=== PATIENT | male | born 1980 | race Caucasian/White ===

== ENCOUNTER 2022-03-28 15:17 | Observation (INO) | payer MEDICAID, SELFPAY ==
--- NOTE | 2022-03-28 | ECG_ITS ---
Test Reason : HEADACHE Blood Pressure : / mmHG Vent. Rate : 072 BPM Atrial Rate : 072 BPM P-R Int : 154 ms QRS Dur : 098 ms QT Int : 396 ms P-R-T Axes : 012 -37 177 degrees QTc Int : 433 ms Normal sinus rhythm Left axis deviation T-wave inversion in Lateral leads Incomplete right bundle branch block Left ventricular hypertrophy with repolarization abnormality ( R in aVL , [place] product ) Abnormal ECG When compared with ECG of 28-MAR-2022 22:21, No significant change was found Referred By: Marin Schwartz Electronically Signed By:EZ MONTEZ MD
--- NOTE | 2022-03-28 | ECG_ITS ---
Test Reason : CHEST TIGHTNESS Blood Pressure : / mmHG Vent. Rate : 081 BPM Atrial Rate : 081 BPM P-R Int : 150 ms QRS Dur : 104 ms QT Int : 378 ms P-R-T Axes : 038 -45 163 degrees QTc Int : 439 ms Normal sinus rhythm Possible Left atrial enlargement Incomplete right bundle branch block Left anterior fascicular block Left ventricular hypertrophy with repolarization abnormality ( R in aVL , [place] product ) T-wave inversion in Lateral leads Abnormal ECG When compared with ECG of 17-MAR-2010 21:39, Left anterior fascicular block is now Present Incomplete right bundle branch block is now Present T wave inversion now evident in Lateral leads Referred By: Generic ED Physician Electronically Signed By:EZ MONTEZ MD
--- NOTE | ~2022-03-28 | XR_ITS ---
EXAMINATION: XR CHEST CLINICAL INFORMATION: Chest pain and shortness of breath. COMPARISON: Chest radiograph dated from 03/27/2011. TECHNIQUE: Frontal view of the chest was obtained. FINDINGS: Normal appearance of the cardiomediastinal silhouette. Low lung volumes with diffuse bronchovascular crowding. Questionable focal airspace opacities in the right lower lobe. No pleural effusions or pneumothorax. No acute osseous abnormalities. The imaged upper abdomen is within normal limits. XR/XR chest 1V IMPRESSION: Questionable focal airspace opacities in the right lower lobe which could be related with subsegmental atelectasis, aspiration or pneumonia. Correlate clinically and follow-up to ensure resolution.
--- NOTE | ~2022-03-28 | CT_ITS ---
EXAMINATION: CT HEAD WITHOUT CONTRAST CLINICAL INFORMATION: Headache, hypertension COMPARISON: None TECHNIQUE: Contiguous axial imaging was performed from the skull base to vertex without intravenous administration of contrast. This CT examination was performed using dose optimization techniques as appropriate, variously including the following: *Automated exposure control *Adjustment of mA and/or kV according to patient size (this includes techniques or standardized protocols for targeted exams where dose is matched to indication/reason for exam; i.e. extremities or head) *Use of iterative reconstruction technique DLP: 833 mGy-cm FINDINGS: CT examination shows the ventricles and sulci are normal in size and configuration. No acute hemorrhage, mass effect or shift is evident. In the posterior fossa, the brainstem, cerebellum and fourth ventricle image normally. The orbits, calvarium, paranasal sinuses and mastoid air cells are unremarkable. CT/CT head/brain wo IV con IMPRESSION: Unremarkable noncontrast brain CT.
[2022-03-28 17:08] VITALS: BP 175/126; PULSE 88; RESP 20; TEMP 36.2; O2SAT 99; BMI 39.9
[2022-03-28 17:41] LABS: MANUAL DIFF FLAG NO
[2022-03-28 17:42] LABS: Basophils Percent Auto 0.4 % (0-2); Eosinophils Absolute Auto 0.1 X10*3/uL (0.0-0.4); Eosinophils Percent Auto 1.6 % (0-4); Hematocrit 37.5 % (42.0-52.0); Imm Gran Abs Auto 0.04 X10*3/uL (0.00-0.03); Imm Gran Pct Auto 0.5 % (0.0-0.4); Lymphocytes Absolute Auto 2.2 X10*3/uL (1.2-4.9); Lymphocytes Percent Auto 28.7 % (20-40); Mean Corpuscular HGB Conc 34.7 g/dl (31.0-36.0); Mean Corpuscular Hemoglobin 29.7 pg (27.0-33.0); Mean Corpuscular Volume 85.8 fL (80.0-98.0); Mean Platelet Volume 11.5 fL (9.4-12.4); Monocytes Absolute Auto 0.5 X10*3/uL (0.1-1.2); Monocytes Percent Auto 6.4 % (2-11); Neutrophils Absolute Auto 4.8 x10*3/uL (2.0-8.3); Neutrophils Percent Auto 62.4 % (45-73); Platelet Count 193 X10*3/uL (160-400); Red Blood Count 4.37 X10*6/uL (4.60-5.80); Red Cell Distribution Width 13.2 % (11.0-16.0); White Blood Count 7.7 X10*3/uL (4.8-10.8)
[2022-03-28 18:01] LABS: Anion Gap 14 (12-20); Blood Urea Nitrogen 11 mg/dL (9-16); Calcium 9.7 mg/dL (8.4-10.2); Carbon Dioxide 28 mmol/L (22-29); Chloride 104 mmol/L (96-108); Creatinine Clr Calc Pharmacy 114.1; Estimated Glomerular Filt Rate > 60; Glucose Random 116 mg/dL (60-115); Potassium 3.5 mmol/L (3.3-5.1); Sodium 142 mmol/L (135-145)
[2022-03-28 18:07] LABS: Troponin-I High Sensitivity 20.8 ng/L (<3.5-35.0)
--- NOTE | 2022-03-28 18:09 | ED_ITS ---
HPI - General Adult General Chief complaint: Headache Stated complaint: High Blood Pressure Time Seen by Provider: 03/28/22 17:56 Source: patient Mode of arrival: ambulatory Limitations: no limitations History of Present Illness HPI narrative: 41-year-old male presents to the emergency department complaining of headache, shortness of breath, high blood pressure since yesterday. Patient reports yesterday he began to have a migraine became diaphoretic and lightheaded. Today at work again he experienced those symptoms. His co-worker checked his blood pressure and reported a pressure of 179/119. Currently he states he is experiencing chest pain that he describes as a tight feeling. He also is experiencing dyspnea on exertion. Patient notes he does have a history of migraines however this migraine was not his typical. Patient reports he has not seen a PCP in the last 2-3 years. When he did he was told that he had high blood pressure and was educated on lifestyle modifications. Patient denies taking medications for his blood pressure. Patient admits to family history of heart disease. Patient states he smokes a pack of cigarettes every 2-3 days on and off for the last 10 years. Denies history of DVT/PE. Denies blood thinners. Denies fevers, chills, changes in vision, nausea, vomiting, diarrhea, constipation, weakness. Denies cocain and drug use Related Data Allergies Allergy/AdvReac Type Severity Reaction Status Date / Time No Known Allergies Allergy Unverified 02/19/20 16:47 Review of Systems Review of Systems: Constitutional : No Weight loss, No Fever, No Chills, No Fatigue, No Malaise ENT/Mouth : No sore throat, No Rhinorrhea Eyes: No Eye Pain, No Swelling, No Redness Cardiovascular : +Chest Pain, No SOB,+ Dyspnea on Exertion, No Orthopnea, No Edema, No Palpitations Respiratory : No Cough, No Sputum, No Wheezing Gastrointestinal : No Nausea, No Vomiting, No Diarrhea, No Constipation, No abdominal Pain, No Hematochezia, No Melena Genitourinary : No Dysuria, No Urinary Frequency, No Hematuria, Musculoskeletal : No joint pain, No Myalgias, No Joint Swelling Skin : No Skin Lesions, No rash Neuro : No Weakness, No Numbness, No Dizziness, No Headache Psych : No Anxiety/Panic, No Depression All other systems reviewed and are negative [facility] Past Medical History Attestation statement: The following information was validated with the patient. Source: old records reviewed Social History Social History Advance Directives: No Advance Directives Information Provided: No Physical Exam ED Vital Signs: Vital Signs - 24 hr 03/28/22 17:08 03/28/22 21:15 03/28/22 21:53 Temperature 97.2 F Pulse Rate 88 77 82 Respiratory Rate 20 15 Blood Pressure 175/126 H 171/115 H 190/112 H Pulse Oximetry 99 97 Oxygen Delivery Method Room Air Room Air 03/28/22 23:48 Temperature Pulse Rate 75 Respiratory Rate 15 Blood Pressure 156/112 H Pulse Oximetry 98 Oxygen Delivery Method Room Air BMI result Body Mass Index 39.9 hypertensive noted. Appearance: Alert.? Oriented X3.? No acute distress.? Head: Normocephalic, atraumatic, no step-offs or deformities Eyes: Pupils equal, round and reactive to light.? ENT: Pharynx normal.? Neck: Normal inspection.? Neck supple.? CVS: Normal heart rate and rhythm.? Pulses normal.? Respiratory: No respiratory distress.? Breath sounds normal.? Abdomen: Soft and nontender.? Skin: Skin warm and dry.? Normal skin color.? Normal skin turgor.? Extremities: No lower extremity edema.? No calf ttp. 5/5 strength to bilateral upper and lower extremities Back: No midline tenderness, no C-spine tenderness, full range of motion, no CVA tenderness bilaterally Neuro: Oriented X 3.? No motor deficit.? No sensory deficit. CN 2-12 intact Course Reevaluation(s) Reevaluation #1: CBC appears to be around patient's baseline, chemistry without acute electrolyte abnormalities requiring intervention. Troponin noted to be 20.8, EKG showing no rmal sinus rhythm, incomplete right bundle-branch block and left anterior fascicular block. Trop likley elevated from demand ischemia. Repeat troponin ordered. Patient without chest pain at this time. Head CT unremarkable. Chest x-ray with questionable focal airspace opacities in the right lower lobe however patient does not have any upper respiratory symptoms. And a likely infectious process likely atelectasis. Time: 18:00 Reevaluation #2: Patient's blood pressure still elevated despite 10 mg of amlodipine. IV med ications are needed this time. Upon entry into patient's room he is noted to have T-wave inversions in lead 2, will repeat EKG at this time. Remains asymptomatic no chest pain and shortness of breath however blood pressure significantly elevated Time: 22:23 Reevaluation #3: Discussed this case with my attending Dr. Joshua who looked at the repeat EKG. Repeat EKG showing some ischemic changes, patient's pressure still high recommending IV labetalol. Likely hypertensive emergency. Time: 23:58 Additional Reevaluation(s): 2359 Patients pressure still elevated will give IV labetalol again. Plan for hospital admission. Medical Decision Making [facility] Narrative Medical decision making narrative: 1831 41-year-old male presents the emergency department with hypertension, headaches, dyspnea on exertion. Benign physical exam. Will rule out acs. Plan is to administer amlodipine for blood pressure. Will obtain chest x-ray to rule out PE. Medical Records Medical records reviewed: Yes I reviewed the patient's medical records. Lab Data Lab results reviewed: Yes I reviewed the patient's lab results. Result diagrams: 03/28/22 17:36 03/28/22 17:36 Labs: Lab Results 03/28/22 03/28/22 03/28/22 Range/Units 17:36 17:36 17:36 WBC 7.7 (4.8-10.8) X10*3/uL RBC 4.37 L (4.60-5.80) X10*6/uL Hgb 13.0 L (14.0-18.0) g/dl Hct 37.5 L (42.0-52.0) % MCV 85.8 (80.0-98.0) fL MCH 29.7 (27.0-33.0) pg MCHC 34.7 (31.0-36.0) g/dl RDW 13.2 (11.0-16.0) % Plt Count 193 (160-400) X10*3/uL MPV 11.5 (9.4-12.4) fL Immature Gran % (Auto) 0.5 H (0.0-0.4) % Neut % (Auto) 62.4 (45-73) % Lymph % (Auto) 28.7 (20-40) % [place] % (Auto) 6.4 (2-11) % Eos % (Auto) 1.6 (0-4) % Baso % (Auto) 0.4 (0-2) % Lymph # (Auto) 2.2 (1.2-4.9) X10*3/uL [place] # (Auto) 0.5 (0.1-1.2) X10*3/uL Eos # (Auto) 0.1 (0.0-0.4) X10*3/uL Baso # (Auto) 0.0 (0.0-0.2) X10*3/uL Abs Immat Gran (auto) 0.04 H (0.00-0.03) X10*3/uL Absolute Neuts (auto) 4.8 (2.0-8.3) x10*3/uL Absolute Nucleated RBC 0.000 (0.0-0.012) X10*3/uL Nucleated RBC % (auto) 0.0 (0.0-0.2) /100WBC D-Dimer High Sensitivty NG/ML Sodium 142 (135-145) mmol/L Potassium 3.5 (3.3-5.1) mmol/L Chloride 104 (96-108) mmol/L Carbon Dioxide 28 (22-29) mmol/L Anion Gap 14 (12-20) BUN 11 (9-16) mg/dL Creatinine 1.09 (0.5-1.4) mg/dL Estim Creat Clear Calc 114.1 Estimated GFR > 60 Random Glucose 116 H (60-115) mg/dL Calcium 9.7 (8.4-10.2) mg/dL Troponin I High Sens 20.8 (<3.5-35.0) ng/L 03/28/22 03/28/22 03/28/22 Range/Units 19:16 19:16 20:51 WBC (4.8-10.8) X10*3/uL RBC (4.60-5.80) X10*6/uL Hgb (14.0-18.0) g/dl Hct (42.0-52.0) % MCV (80.0-98.0) fL MCH (27.0-33.0) pg MCHC (31.0-36.0) g/dl RDW (11.0-16.0) % Plt Count (160-400) X10*3/uL MPV (9.4-12.4) fL Immature Gran % (Auto) (0.0-0.4) % Neut % (Auto) (45-73) % Lymph % (Auto) (20-40) % [place] % (Auto) (2-11) % Eos % (Auto) (0-4) % Baso % (Auto) (0-2) % Lymph # (Auto) (1.2-4.9) X10*3/uL [place] # (Auto) (0.1-1.2) X10*3/uL Eos # (Auto) (0.0-0.4) X10*3/uL Baso # (Auto) (0.0-0.2) X10*3/uL Abs Immat Gran (auto) (0.00-0.03) X10*3/uL Absolute Neuts (auto) (2.0-8.3) x10*3/uL Absolute Nucleated RBC (0.0-0.012) X10*3/uL Nucleated RBC % (auto) (0.0-0.2) /100WBC D-Dimer High Sensitivty < 150 NG/ML Sodium (135-145) mmol/L Potassium (3.3-5.1) mmol/L Chloride (96-108) mmol/L Carbon Dioxide (22-29) mmol/L Anion Gap (12-20) BUN (9-16) mg/dL Creatinine (0.5-1.4) mg/dL Estim Creat Clear Calc Estimated GFR Random Glucose (60-115) mg/dL Calcium (8.4-10.2) mg/dL Troponin I High Sens 25.8 28.1 (<3.5-35.0) ng/L Critical Care Time Critical Care Time Critical Care Time: No Discharge Plan Discharge Clinical Impression: Headache, Hypertensive emergency Patient Disposition: Still a Patient
[2022-03-28] MEDS: amLODIPine Besylate 5 MG TABLET PO ×2 (19:19→21:51)
[2022-03-28 19:49] LABS: D Dimer High Sensitivity < 150 NG/ML
[2022-03-28 19:55] LABS: Troponin-I High Sensitivity 25.8 ng/L (<3.5-35.0)
[2022-03-28 21:15] VITALS: BP 171/115; PULSE 77; RESP 15; O2SAT 97
[2022-03-28 21:23] LABS: Troponin-I High Sensitivity 28.1 ng/L (<3.5-35.0)
[2022-03-28 21:53] VITALS: BP 190/112; PULSE 82
--- NOTE | 2022-03-28 22:21 | ECG_ITS ---
Test Reason : REPEAT Blood Pressure : / mmHG Vent. Rate : 078 BPM Atrial Rate : 078 BPM P-R Int : 154 ms QRS Dur : 096 ms QT Int : 392 ms P-R-T Axes : 026 -40 167 degrees QTc Int : 446 ms Normal sinus rhythm Left axis deviation Incomplete right bundle branch block Minimal voltage criteria for LVH, may be normal variant ( [place] product ) T wave abnormality, consider inferolateral ischemia Abnormal ECG When compared with ECG of 28-MAR-2022 17:14, T wave inversion now evident in Anterior leads Referred By: Marin Schwartz Electronically Signed By:EZ MONTEZ MD
[2022-03-28] MEDS: Labetalol HCL 100 MG/20 ML VIAL IVPUSH (22:34)
[2022-03-28 23:48] VITALS: BP 156/112; PULSE 75; RESP 15; O2SAT 98
[2022-03-29] VITALS (11 sets, daily range): BP systolic 122–185; BP diastolic 82–122; PULSE 64–94; RESP 12–16; TEMP 36.3–36.9; O2SAT 96–99
[2022-03-29] MEDS: Labetalol HCL 100 MG/20 ML VIAL IVPUSH (00:23)
[2022-03-29 00:50] LABS: Troponin-I High Sensitivity 20.3 ng/L (<3.5-35.0)
--- NOTE | 2022-03-29 01:22 | P.HPHOSP_ITS ---
History of Present Illness Date of Service: 03/29/22 Chief Complaint: Headache and elevated blood pressure This is a 41-year-old male who was not on any prescription medications presents to the emergency department for evaluation of high blood pressure and headache. Patient states he had headache 1 day prior to presentation. He went to work but was not feeling well due to headache, sweating and intermittent chest discomfort. Chest discomfort did not increase with ambulation and did not relieve with rest. Unable to specify the duration of chest discomfort. Patient states he had similar symptoms today on the day of presentation at work. His co-worker checked his blood pressure and his systolic was in the high 170s and hence he decided to present to the ER for further evaluation. He used to take blood pressure medication years ago but stopped as he wanted to lower his blood pressure using lifestyle measures. Does not remember the name of the antihypertensive he took previously. He last saw his PCP 3 years ago. Also has obstructive sleep apnea but does not use CPAP at home. Patient smokes ci garettes, about a pack every 2-3 days for the last 10 years. Patient denies blurring vision, tingling numbness of extremities, abdominal discomfort, vomiting, changes in urinary or bowel habits. Review of Systems Review of Systems: All 13 review of systems are negative except as noted in HPI PMFSH Social History Advance Directives: No Advance Directives Information Provided: No Meds Allergies Allergy/AdvReac Type Severity Reaction Status Date / Time No Known Allergies Allergy Unverified 02/19/20 16:47 Active Medications: Current Medications Acetaminophen (Acetaminophen 325 Mg Tablet) 650 mg PO Q6H PRN PRN Reason: Pain, Mild (Pain Scale 1-3) Melatonin (Melatonin 3 Mg Tablet) 6 mg PO BEDTIME PRN PRN Reason: Insomnia Ondansetron HCl (Ondansetron Hcl 4 Mg/2 Ml Vial) 4 mg IVPUSH Q8H PRN PRN Reason: Nausea and Vomiting Pharmacy Consult (Consult Rx Perform Med Rec) 1 each MISCELLANE ONCE PRN PRN Reason: Consult order Sodium Chloride (0.9 % Sodium Chloride Flush 3 Ml Syringe) 3 ml IVFLUSH QSHIFT JAUN Physical Exam Vital Signs and Narrative: Vital Signs: Last Vital Signs Temp 97.3 F 03/29/22 00:35 Pulse 77 03/29/22 00:35 Resp 16 03/29/22 00:35 BP 147/85 H 03/29/22 00:35 Pulse Ox 97 03/29/22 00:35 O2 Del Method 03/29/22 00:35 BMI result Body Mass Index 39.9 Middle-aged male lying in bed in no distress Neck supple, no JVD Regular rate and rhythm, S1-S2 heard Regular breath sounds bilaterally, no wheezing or crackles appreciated Abdomen soft nontender, no guarding, no rigidity Patient is awake, alert and oriented to self, place, time and person ; no focal motor deficit Psych: Normal mood No pedal edema Results Labs CBC and Chem 7: 03/28/22 17:36 03/28/22 17:36 Labs: Laboratory Results - last 24 hr 03/28/22 03/28/22 03/28/22 17:36 17:36 17:36 MCV 85.8 MCH 29.7 MCHC 34.7 RDW 13.2 Plt Count 193 MPV 11.5 Immature Gran % (Auto) 0.5 H Neut % (Auto) 62.4 Lymph % (Auto) 28.7 [place] % (Auto) 6.4 Eos % (Auto) 1.6 Baso % (Auto) 0.4 Lymph # (Auto) 2.2 [place] # (Auto) 0.5 Eos # (Auto) 0.1 Baso # (Auto) 0.0 Abs Immat Gran (auto) 0.04 H Absolute Neuts (auto) 4.8 Absolute Nucleated RBC 0.000 Nucleated RBC % (auto) 0.0 D-Dimer High Sensitivty Anion Gap 14 Estim Creat Clear Calc 114.1 Estimated GFR > 60 Random Glucose 116 H Calcium 9.7 Troponin I High Sens 20.8 03/28/22 03/28/22 03/28/22 19:16 19:16 20:51 MCV MCH MCHC RDW Plt Count MPV Immature Gran % (Auto) Neut % (Auto) Lymph % (Auto) [place] % (Auto) Eos % (Auto) Baso % (Auto) Lymph # (Auto) [place] # (Auto) Eos # (Auto) Baso # (Auto) Abs Immat Gran (auto) Absolute Neuts (auto) Absolute Nucleated RBC Nucleated RBC % (auto) D-Dimer High Sensitivty < 150 Anion Gap Estim Creat Clear Calc Estimated GFR Random Glucose Calcium Troponin I High Sens 25.8 28.1 03/29/22 00:20 MCV MCH MCHC RDW Plt Count MPV Immature Gran % (Auto) Neut % (Auto) Lymph % (Auto) [place] % (Auto) Eos % (Auto) Baso % (Auto) Lymph # (Auto) [place] # (Auto) Eos # (Auto) Baso # (Auto) Abs Immat Gran (auto) Absolute Neuts (auto) Absolute Nucleated RBC Nucleated RBC % (auto) D-Dimer High Sensitivty Anion Gap Estim Creat Clear Calc Estimated GFR Random Glucose Calcium Troponin I High Sens 20.3 Imaging Radiologist's Impressions: Impressions Chest X-Ray 03/28/22 18:30 IMPRESSION: Questionable focal airspace opacities in the right lower lobe which could be related with subsegmental atelectasis, aspiration or pneumonia. Correlate clinically and follow-up to ensure resolution. Head CT 03/28/22 19:38 IMPRESSION: Unremarkable noncontrast brain CT. Assessment and Plan (1) Hypertensive emergency: Status: Acute (2) Tobacco use disorder: Status: Acute (3) Obstructive sleep apnea: Status: Acute Plan This is a 41-year-old male who was not on any prescription medications presents to the emergency department for evaluation of high blood pressure and headache. #. Hypertensive emergency -due to medication noncompliance in a patient with history of hypertension. Al so underlying untreated obstructive sleep apnea leading to worsening of blood pressure. Symptoms resolved at the time of my evaluation with lowering of blood pressure. BP with systolic greater than 200 at the time of presentation, currently appropriately lowered. Received amlodipine and IV labetalol in the ER. Defer further antihypertensive now. Will normalize cautiously over 24-36 hours in a patient with uncontrolled hypertension to prevent aggressive lowering and risk of stroke. Obtaining UA to look for proteinuria and end-organ damage which will influence choice of antihypertensives. Optimize oral antihypertensives at discharge. Will need close follow-up with PCP #. Elevated troponin -likely due to demand ischemia in the setting of above #. Tobacco use disorder -coynseled regarding cessation #. Obstructive sleep apnea -will need CPAP at bedtime. DVT prophylaxis: None. Patient is ambulatory Diet: Cardiac diet Full code Quality Stroke Does the patient have a stroke diagnosis?: No VTE Prior VTE?: No VTE Risk Level:: Medical - low VTE Device Contraindication: Treatment Not Indicated VTE Drug Contraindication: Treatment Not Indicated
[2022-03-29 06:54] LABS: Troponin-I High Sensitivity 18.8 ng/L (<3.5-35.0)
--- NOTE | 2022-03-29 07:16 | PHA.MEDREC ---
Pharmacy Consult ? Medication Reconciliation Pharmacy has completed the medication reconciliation.
[2022-03-29] MEDS: amLODIPine Besylate 5 MG TABLET PO (09:15)
[2022-03-29] MEDS: 0.9 % Sodium Chloride Flush 3 ML SYRINGE IVFLUSH (09:15)
[2022-03-29] MEDS: lisinopriL 5 MG TABLET PO ×2 (09:15→14:22)
--- NOTE | 2022-03-29 09:21 | PC.NURSE ---
pt is a/o x 4 no sob/vernon noted. speaks in full sentences. lungs - cta. heart sounds regular. abd soft and non-tender, bs + x 4 quads. skin pink warm dry. pt aware of plan of care.
--- NOTE | 2022-03-29 10:27 | MHC.CM.PN ---
Attempted to meet with patient in regards to discharge planning. Patient currently on the phone. Will attempt to meet again. Continue to monitor for d/c needs.
[2022-03-29 10:31] LABS: Appearance Urine Clear; Color Urine Yellow; Glucose Urine UA Negative (Negative); Leukocyte Esterase Urine Negative (Negative); Nitrite Urine Negative (Negative); Urine Blood Negative (Negative); Urine Ketones Negative (Negative); Urine Protein Negative (Neg-Trace)
[2022-03-29 10:45] LABS: COVID-19 Test Negative (Negative); IDNOW Serial# 55D5AD1C
--- NOTE | 2022-03-29 13:56 | MHC.CM.PN ---
CM spoke with Patient. Patient lives alone in an apartment and is functionally independent and working. Home, self care is the goal and CM has initiated and will follow for dc planning. PCP is from [facility] and Patient has received no Covid vax.
--- NOTE | 2022-03-29 14:02 | MHC.CM.PN ---
ESPINAL will be addressed by ANURAG MATHEW.
--- NOTE | 2022-03-29 17:07 | PC.NURSE ---
pt blood pressures have been trending downwards most recent 122/82. Dr. Taylor aware, plan to d/c pt
--- NOTE | 2022-03-29 17:18 | PM.DS ---
DS: Providers Provider Date of Service: 03/29/22 Date of admission: 03/29/22 01:18 Primary care physician: [facility] DS: Diagnosis Discharge Diagnosis (1) Hypertensive emergency: Status: Acute (2) Tobacco use disorder: Status: Acute (3) Obstructive sleep apnea: Status: Acute DS: Summary Hospital Course Hospital Course: Patient presented with headache and noted to have elevated BP, he has not been taking his meds, in ED he was given Norvasc 5, labetalol IV 5 and was admitted for observation patient was continued on Lisinorpil 10 and Norvasc 5 due to persistent High BP especially diastolic and over the course of the day his blood pressure has come and down, he has no headache and will be discharge with Norvasc 5 daily only and to follow up with PCP in a week Time Spent with Patient Time attestation: Total time spent providing and/or coordinating discharge services: Discharge coordination time: Greater than 30 minutes Quality: Safe Use of Opioids Does Pt have an Active Cancer Diagnosis on the Problem List?: No Quality: Stroke Does the patient have a stroke diagnosis?: No Physical Exam Vital Signs: Vital Signs: Last Vital Signs Temp 98.2 F 03/29/22 14:09 Pulse 87 03/29/22 16:25 Resp 16 03/29/22 16:25 BP 122/82 03/29/22 17:06 Pulse Ox 98 03/29/22 16:25 O2 Del Method 03/29/22 16:25 BMI result Body Mass Index 39.9 DS: Data Data Completed and Pending Labs on day of discharge: Laboratory Results - last 24 hr 03/28/22 03/28/22 03/28/22 17:36 17:36 17:36 WBC 7.7 RBC 4.37 L Hgb 13.0 L Hct 37.5 L MCV 85.8 MCH 29.7 MCHC 34.7 RDW 13.2 Plt Count 193 MPV 11.5 Immature Gran % (Auto) 0.5 H Neut % (Auto) 62.4 Lymph % (Auto) 28.7 [place] % (Auto) 6.4 Eos % (Auto) 1.6 Baso % (Auto) 0.4 Lymph # (Auto) 2.2 [place] # (Auto) 0.5 Eos # (Auto) 0.1 Baso # (Auto) 0.0 Abs Immat Gran (auto) 0.04 H Absolute Neuts (auto) 4.8 Absolute Nucleated RBC 0.000 Nucleated RBC % (auto) 0.0 D-Dimer High Sensitivty Sodium 142 Potassium 3.5 Chloride 104 Carbon Dioxide 28 Anion Gap 14 BUN 11 Creatinine 1.09 Estim Creat Clear Calc 114.1 Estimated GFR > 60 Random Glucose 116 H Calcium 9.7 Troponin I High Sens 20.8 Urine Color Urine Appearance Urine pH Ur Specific [place] Urine Protein Urine Glucose (UA) Urine Ketones Urine Blood Urine Nitrite Ur Leukocyte Esterase COVID-19 ([facility]) COVID-19 Clin Com 03/28/22 03/28/22 03/28/22 19:16 19:16 20:51 WBC RBC Hgb Hct MCV MCH MCHC RDW Plt Count MPV Immature Gran % (Auto) Neut % (Auto) Lymph % (Auto) [place] % (Auto) Eos % (Auto) Baso % (Auto) Lymph # (Auto) [place] # (Auto) Eos # (Auto) Baso # (Auto) Abs Immat Gran (auto) Absolute Neuts (auto) Absolute Nucleated RBC Nucleated RBC % (auto) D-Dimer High Sensitivty < 150 Sodium Potassium Chloride Carbon Dioxide Anion Gap BUN Creatinine Estim Creat Clear Calc Estimated GFR Random Glucose Calcium Troponin I High Sens 25.8 28.1 Urine Color Urine Appearance Urine pH Ur Specific [place] Urine Protein Urine Glucose (UA) Urine Ketones Urine Blood Urine Nitrite Ur Leukocyte Esterase COVID-19 ([facility]) COVID-19 [place] Com 03/29/22 03/29/22 03/29/22 00:20 06:14 10:22 WBC RBC Hgb Hct MCV MCH MCHC RDW Plt Count MPV Immature Gran % (Auto) Neut % (Auto) Lymph % (Auto) [place] % (Auto) Eos % (Auto) Baso % (Auto) Lymph # (Auto) [place] # (Auto) Eos # (Auto) Baso # (Auto) Abs Immat Gran (auto) Absolute Neuts (auto) Absolute Nucleated RBC Nucleated RBC % (auto) D-Dimer High Sensitivty Sodium Potassium Chloride Carbon Dioxide Anion Gap BUN Creatinine Estim Creat Clear Calc Estimated GFR Random Glucose Calcium Troponin I High Sens 20.3 18.8 Urine Color Yellow Urine Appearance Clear Urine pH 8.0 Ur Specific [place] 1.010 Urine Protein Negative Urine Glucose (UA) Negative Urine Ketones Negative Urine Blood Negative Urine Nitrite Negative Ur Leukocyte Esterase Negative COVID-19 ([facility]) COVID-19 Clin Com 03/29/22 10:22 WBC RBC Hgb Hct MCV MCH MCHC RDW Plt Count MPV Immature Gran % (Auto) Neut % (Auto) Lymph % (Auto) [place] % (Auto) Eos % (Auto) Baso % (Auto) Lymph # (Auto) [place] # (Auto) Eos # (Auto) Baso # (Auto) Abs Immat Gran (auto) Absolute Neuts (auto) Absolute Nucleated RBC Nucleated RBC % (auto) D-Dimer High Sensitivty Sodium Potassium Chloride Carbon Dioxide Anion Gap BUN Creatinine Estim Creat Clear Calc Estimated GFR Random Glucose Calcium Troponin I High Sens Urine Color Urine Appearance Urine pH Ur Specific [place] Urine Protein Urine Glucose (UA) Urine Ketones Urine Blood Urine Nitrite Ur Leukocyte Esterase COVID-19 ([facility]) Negative COVID-19 Clin Com See Note Discharge Plan Discharge Anticipated Discharge Date/Time: 03/29/22 17:09 Patient Disposition: Home, Self-Care Discharge Diagnosis: HTN urgency, headache Referrals: [place],[facility] [Primary Care Provider] - 1 Week Discharge Medications: New amlodipine 5 mg Tablet 5 mg PO DAILY Qty: 30 0RF Protocol: Hold for SBP< HOLD for SBP < : 90 Discharge Orders: Discharge Order (Routine); Ordered 03/29/22 Ordered By: Sabas Taylor Diet: Advance to usual diet Activity on Discharge: As tolerated Stand Alone Forms: Patient Portal Discharge page Care Plan Goals: Blood pressure control Health Concerns: Uncontrolled high blood pressure Plan of Treatment: Take Norvasc 5 mg daily as prescribed and follow up with your Doctor in a week, call for appointment, Try and check your blood pressure at home or at local pharmacy and if top number is greater 180 or bottom number is greater than [phone] call your doctor for direction Assessment: as above
== END 2022-03-29 17:55 | disposition home or self-care (01) ==
LOC: HO.ED 21:17 → HO.EDOVER 03-29 01:28
PROVIDERS: Physician Assistant; Admitting Provider Student in an Organized Health Care Education/Training Program; Emergency Provider Emergency Medicine; PCP Internal Medicine; Visit Provider Internal Medicine
DX: I16.1 Hypertensive emergency (principal); R51.9 Headache, unspecified; R77.8 Other specified abnormalities of plasma proteins; F17.210 Nicotine dependence, cigarettes, uncomplicated; G47.33 Obstructive sleep apnea (adult) (pediatric); R06.00 Dyspnea, unspecified; Z91.14 Patient's other noncompliance with medication regimen; Z20.822 Contact with and (suspected) exposure to COVID-19
CPT/HCPCS: 36415; 70450; 71045; 80048; 81003; 84484; 85025; 85379; 87635; 93005; 96374; 96376; 99218; 99285

== ENCOUNTER → 2022-07-27 15:05 | Outpatient (BNVA) | payer MEDICAID, SELFPAY | PROVIDERS: PCP Registered Nurse; Referring Provider Registered Nurse; Visit Provider Internal Medicine | DX: I10 Essential (primary) hypertension (principal); R94.31 Abnormal electrocardiogram [ECG] [EKG]; R07.2 Precordial pain; E66.01 Morbid (severe) obesity due to excess calories; Z68.41 Body mass index [BMI] 40.0-44.9, adult; G47.33 Obstructive sleep apnea (adult) (pediatric) | CPT/HCPCS: 99202 ==

== ENCOUNTER 2022-10-16 17:39 | Emergency (ER) | payer MEDICAID, SELFPAY ==
--- NOTE | ~2022-10-16 | XR_ITS ---
EXAMINATION: CHEST 2 VIEWS CLINICAL INFORMATION: Chest.. COMPARISON: No recent pertinent prior studies are available for comparison. TECHNIQUE: PA and lateral views of the chest obtained. FINDINGS: The lungs are mildly hypoexpanded. No focal infiltrate, effusion, edema, or pneumothorax. Cardiac and mediastinal silhouettes are within normal limits for technique. No acute bony abnormality seen XR/XR chest 2V IMPRESSION: Mildly hypoexpanded but otherwise no evidence of acute disease
--- NOTE | 2022-10-16 17:40 | ECG_ITS ---
Test Reason : chest thightness Blood Pressure : / mmHG Vent. Rate : 097 BPM Atrial Rate : 097 BPM P-R Int : 144 ms QRS Dur : 092 ms QT Int : 368 ms P-R-T Axes : 031 -54 124 degrees QTc Int : 467 ms Normal sinus rhythm Left anterior fascicular block Minimal voltage criteria for LVH, may be normal variant ( [place] product ) ST & T wave abnormality, consider lateral ischemia Abnormal ECG When compared with ECG of 29-MAR-2022 00:13, Incomplete right bundle branch block is no longer Present Referred By: Shaunna Kiran Electronically Signed By:Jonel Nash
--- NOTE | 2022-10-16 17:52 | ED.CHESTPAIN ---
HPI - Chest Pain General Chief Complaint: Chest Pain <Shaunna Kiran NP - Last Filed: 10/16/22 17:55> Stated Complaint: chest tightness/ high bp <Shaunna Kiran NP - Last Filed: 10/16/22 17:55> Time Seen by Provider: 10/16/22 18:00 <Shaunna Kiran NP - Last Filed: 10/16/22 17:55> Source: patient <DESIRAE Bauer - Last Filed: 10/16/22 22:09> Mode of arrival: ambulatory <DESIRAE Bauer - Last Filed: 10/16/22 22:09> Limitations: no limitations <DESIRAE Bauer - Last Filed: 10/16/22 22:09> History of Present Illness HPI narrative: 42-year-old male history of precordial chest pain, DEAN, morbid obesity, hypertension presenting to the emergency department with complaints of substernal chest tightness, nonradiating, shortness of breath both at rest and with exertion, and elevated blood pressure readings at home for the past 5 days. Patient reports that he takes amlodipine for hypertension as well as carvedilol and losartan, patient taking all his medications daily as prescribed and despite doing this his blood pressures have been high. Reports increasing life stressors and anxiety due to work stress and pressure. Patient denies, recent travel, hormone replacement therapy, history of malignancy, history of PE or DVT. Patient denies headache, vision changes, dizziness, weakness, nausea, vomiting, abdominal pain, fevers and chills. <DESIRAE Bauer - Last Filed: 10/16/22 22:09> Related Data Home Medications: Home Medications Medication Instructions Recorded Confirmed amlodipine 10 mg tablet 10 mg PO QAM 07/27/22 07/27/22 losartan 100 mg tablet 100 mg PO DAILY 07/27/22 07/27/22 Previous Rx's Medication Instructions Recorded carvedilol 6.25 mg tablet (Coreg) 6.25 mg PO BID 30 days #60 tabs 07/27/22 lorazepam 0.5 mg tablet (Ativan) 0.5 mg PO DAILY PRN anxiety #6 tabs 10/16/22 <Shaunna Kiran NP - Last Filed: 10/16/22 17:55> Allergies/Adverse Reactions: Allergies Allergy/AdvReac Type Severity Reaction Status Date / Time No Known Allergies Allergy Verified 10/16/22 17:53 <Shaunna Kiran NP - Last Filed: 10/16/22 17:55> Review of Systems Review of Systems: Constitutional : No Weight loss, No Fever, No Chills, + Fatigue, + Malaise ENT/Mouth : No sore throat, No Rhinorrhea Eyes: No Eye Pain, No Swelling, No Redness Cardiovascular : + Chest Pain, + SOB, + Dyspnea on Exertion, No Orthopnea, No Edema, No Palpitations Respiratory : No Cough, No Sputum, No Wheezing Gastrointestinal : No Nausea, No Vomiting, No Diarrhea, No Constipation, No abdominal Pain, No Hematochezia, No Melena Genitourinary : No Dysuria, No Urinary Frequency, No Hematuria, Musculoskeletal : No joint pain, No Myalgias, No Joint Swelling Skin : No Skin Lesions, No rash Neuro : No Weakness, No Numbness, No Dizziness, No Headache Psych : No Anxiety/Panic, No Depression All other systems reviewed and are negative <DESIRAE Bauer - Last Filed: 10/16/22 22:09> Yes all other systems are reviewed and are negative <DESIRAE Bauer - Last Filed: 10/16/22 22:09> [facility] Past Medical History Attestation statement: The following information was validated with the patient. <DESIRAE Bauer - Last Filed: 10/16/22 22:09> Source: old records reviewed and nursing notes reviewed <DESIRAE Bauer - Last Filed: 10/16/22 22:09> Medical History: Medical History Essential hypertension Morbid obesity Obstructive sleep apnea Tobacco use disorder <Shaunna Kiran NP - Last Filed: 10/16/22 17:55> Family History Family History: Family History Mother HTN (hypertension) Father Kidney failure CVD (cardiovascular disease) HTN (hypertension) <Shaunna Kiran NP - Last Filed: 10/16/22 17:55> Social History Social History: Social History Smoked in Last 30 Days: Yes Use of substances other than those prescribed or required for medical reasons: No Advance Directives: No Advance Directives Information Provided: Yes service: No Current occupational status: employed <Shaunna Kiran NP - Last Filed: 10/16/22 17:55> Physical Exam Vital Signs: Vital Signs: Last Vital Signs Temp 98.1 F 10/16/22 20:25 Pulse 65 10/16/22 20:25 Resp 17 10/16/22 20:25 BP 128/92 H 10/16/22 20:25 Pulse Ox 94 10/16/22 20:25 O2 Del Method Room Air 10/16/22 20:25 BMI result Body Mass Index 42.6 <Shaunna Kiran NP - Last Filed: 10/16/22 17:55> Vital Signs: Last Vital Signs Temp 98.1 F 10/16/22 20:25 Pulse 65 10/16/22 20:25 Resp 17 10/16/22 20:25 BP 128/92 H 10/16/22 20:25 Pulse Ox 94 10/16/22 20:25 O2 Del Method Room Air 10/16/22 20:25 BMI result Body Mass Index 42.6 vss <DESIRAE Bauer - Last Filed: 10/16/22 22:09> Appearance: Alert.? Oriented X3.? No acute distress.? Head: Normocephalic, atraumatic, no step-offs or deformities Eyes: Pupils equal, round and reactive to light.? Neck: Normal inspection.? Neck supple.? CVS: Normal heart rate and rhythm.? Pulses normal.? Respiratory: No respiratory distress.? Breath sounds normal.? Abdomen: Soft and nontender.? Skin: Skin warm and dry.? Normal skin color.? Normal skin turgor.? Extremities: No lower extremity edema.? No calf ttp. 5/5 strength to bilateral upper and lower extremities Neuro: Oriented X 3.? No motor deficit.? No sensory deficit. CN 2-12 intact <DESIRAE Bauer - Last Filed: 10/16/22 22:09> Course Course Course Narrative: This is a rapid medical exam. Deferred additional HPI, ROS, PE to primary provider. 42 yo male with a history of HTN, obesity here with complaints of non exertional shortness of breath, chest tightness, elevated blood pressure x 5 days despite taking his medications. Increased stress at work. Will check labs, EKG, CXR. +hypertensive in triage. Other VS are stable. <Shaunna Kiran NP - Last Filed: 10/16/22 17:55> Reevaluation(s) Reevaluation #1: CBC unremarkable. Chemistry with low potassium will give oral repletion, total bilirubin of 1.7 however no abdominal tenderness to palpation, will let him know about this finding and have him follow-up with his PCP. Patient's initial troponin 14.5 will repeat 3 hours from initial, EKG nonischemic however low suspicion for ACS. Chest x-ray with mildly hypoexpanded but otherwise no evidence of acute disease. Dimer pending Went in to re-evaluate patient patient does not have chest pain, appears very anxious. <DESIRAE Bauer - Last Filed: 10/16/22 22:09> Time: 18:59 <DESIRAE Bauer - Last Filed: 10/16/22 22:09> Reevaluation #2: Patient's blood pressure 128 / 92, heart rate 65, patient no longer anxious. Well appearing. Saturating 98% on room air. Patient does go down to low 90s when he is sleeping. Feeling better without chest pain, shortness of breath. Educated patient on diagnosis and treatment plan, answered all question, patient verbalizes understanding. At this time patient will be discharged home, advised to return with new or worsening symptoms. Educated on worrisome signs and symptoms and when to return. At this time I feel comfortable discharge home. <DESIRAE Bauer - Last Filed: 10/16/22 22:09> Time: 22:09 <DESIRAE Bauer - Last Filed: 10/16/22 22:09> Medications Administered Discontinued Medications Generic Name Dose Route Start Last Admin Trade Name Freq PRN Reason Stop Dose Admin Lorazepam 1 mg 10/16/22 18:23 10/16/22 18:48 Lorazepam 1 Mg Tablet PO 10/16/22 18:24 1 mg ONCE ONE Administration Potassium Chloride 20 meq 10/16/22 20:23 10/16/22 21:18 Potassium Chloride Er 20 Meq Tab.Er.Prt PO 10/16/22 20:24 20 meq ONCE ONE Administration <Shaunna Kiran NP - Last Filed: 10/16/22 17:55> Medications Administered Discontinued Medications Generic Name Dose Route Start Last Admin Trade Name Amarjit PRN Reason Stop Dose Admin Lorazepam 1 mg 10/16/22 18:23 10/16/22 18:48 Lorazepam 1 Mg Tablet PO 10/16/22 18:24 1 mg ONCE ONE Administration Potassium Chloride 20 meq 10/16/22 20:23 10/16/22 21:18 Potassium Chloride Er 20 Meq Tab.Er.Prt PO 10/16/22 20:24 20 meq ONCE ONE Administration <DESIRAE Bauer - Last Filed: 10/16/22 22:09> Medical Decision Making Medical Decision Making [facility] Narrative: 1807 42 year old male presents w/ cp, sob and high blood pressure X 5 days. Reports increasing life stressors.Med compliant Pe benign, however VS significant for hypertensive. Concerns for HTN urgency vs emergency vs acs vs PE vs anxiety. Unlikely disection, AAA. No signs of stroke posterior stroke Plan- labs, imaging, urine, cardiac monitoring. <DESIRAE Bauer - Last Filed: 10/16/22 22:09> Differential Diagnosis Differential Diagnoses: The differential diagnosis associated with the presentation includes <DESIRAE Bauer - Last Filed: 10/16/22 22:09> Concerns for HTN urgency vs emergency vs acs vs PE vs anxiety. Unlikely disection, AAA. No signs of stroke posterior stroke <DESIRAE Bauer - Last Filed: 10/16/22 22:09> Admission/Observation Consideration of admission/observation: Escalation of care including admission/observation considered <DESIRAE Bauer - Last Filed: 10/16/22 22:09> Lab Data [facility] Lab Attestation statement: I reviewed the patient's lab results. <DESIRAE Bauer - Last Filed: 10/16/22 22:09> Result Diagrams: 10/16/22 18:17 10/16/22 18:17 <Shaunna Kiran, [employer] - Last Filed: 10/16/22 17:55> Labs: Lab Results 10/16/22 10/16/22 10/16/22 Range/Units 18:17 18:17 18:17 WBC 8.4 (4.8-10.8) X10*3/uL RBC 5.03 (4.60-5.80) X10*6/uL Hgb 14.0 (14.0-18.0) g/dl Hct 41.6 L (42.0-52.0) % MCV 82.7 (80.0-98.0) fL MCH 27.8 (27.0-33.0) pg MCHC 33.7 (31.0-36.0) g/dl RDW 12.7 (11.0-16.0) % Plt Count 233 (160-400) X10*3/uL MPV 11.0 (9.4-12.4) fL Immature Gran % (Auto) 0.5 H (0.0-0.4) % Neut % (Auto) 68.4 (45-73) % Lymph % (Auto) 24.8 (20-40) % [place] % (Auto) 5.1 (2-11) % Eos % (Auto) 0.8 (0-4) % Baso % (Auto) 0.4 (0-2) % Lymph # (Auto) 2.1 (1.2-4.9) X10*3/uL [place] # (Auto) 0.4 (0.1-1.2) X10*3/uL Eos # (Auto) 0.1 (0.0-0.4) X10*3/uL Baso # (Auto) 0.0 (0.0-0.2) X10*3/uL Abs Immat Gran (auto) 0.04 H (0.00-0.03) X10*3/uL Absolute Neuts (auto) 5.7 (2.0-8.3) x10*3/uL Absolute Nucleated RBC 0.000 (0.0-0.012) X10*3/uL Nucleated RBC % (auto) 0.0 (0.0-0.2) /100WBC PT 11.6 (10.0-13.1) SEC INR 1.0 (0.9-1.1) D-Dimer High Sensitivty < 150 NG/ML Sodium 142 (135-145) mmol/L Potassium 3.2 L (3.3-5.1) mmol/L Chloride 105 (96-108) mmol/L Carbon Dioxide 26 (22-29) mmol/L Anion Gap 14 (12-20) BUN 9 (9-16) mg/dL Creatinine 1.07 (0.5-1.4) mg/dL Estim Creat Clear Calc 119.2 Estimated GFR > 60 Random Glucose 144 H (60-115) mg/dL Calcium 9.4 (8.4-10.2) mg/dL Magnesium 2.0 (1.6-2.6) mg/dL Total Bilirubin 1.7 H (0.0-1.0) mg/dL Direct Bilirubin 0.3 (0.0-0.5) mg/dL AST 14 (5-37) U/L ALT 16 (0-40) U/L Alkaline Phosphatase 47 (39-117) U/L Troponin I High Sens (<3.5-35.0) ng/L B-Natriuretic Peptide (<100) pg/mL Total Protein 7.1 (6.5-8.0) g/dL Albumin 4.3 (3.5-5.0) g/dL 10/16/22 10/16/22 10/16/22 Range/Units 18:17 18:17 21:15 WBC (4.8-10.8) X10*3/uL RBC (4.60-5.80) X10*6/uL Hgb (14.0-18.0) g/dl Hct (42.0-52.0) % MCV (80.0-98.0) fL MCH (27.0-33.0) pg MCHC (31.0-36.0) g/dl RDW (11.0-16.0) % Plt Count (160-400) X10*3/uL MPV (9.4-12.4) fL Immature Gran % (Auto) (0.0-0.4) % Neut % (Auto) (45-73) % Lymph % (Auto) (20-40) % [place] % (Auto) (2-11) % Eos % (Auto) (0-4) % Baso % (Auto) (0-2) % Lymph # (Auto) (1.2-4.9) X10*3/uL [place] # (Auto) (0.1-1.2) X10*3/uL Eos # (Auto) (0.0-0.4) X10*3/uL Baso # (Auto) (0.0-0.2) X10*3/uL Abs Immat Gran (auto) (0.00-0.03) X10*3/uL Absolute Neuts (auto) (2.0-8.3) x10*3/uL Absolute Nucleated RBC (0.0-0.012) X10*3/uL Nucleated RBC % (auto) (0.0-0.2) /100WBC PT (10.0-13.1) SEC INR (0.9-1.1) D-Dimer High Sensitivty NG/ML Sodium (135-145) mmol/L Potassium (3.3-5.1) mmol/L Chloride (96-108) mmol/L Carbon Dioxide (22-29) mmol/L Anion Gap (12-20) BUN (9-16) mg/dL Creatinine (0.5-1.4) mg/dL Estim Creat Clear Calc Estimated GFR Random Glucose (60-115) mg/dL Calcium (8.4-10.2) mg/dL Magnesium (1.6-2.6) mg/dL Total Bilirubin (0.0-1.0) mg/dL Direct Bilirubin (0.0-0.5) mg/dL AST (5-37) U/L ALT (0-40) U/L Alkaline Phosphatase (39-117) U/L Troponin I High Sens 14.5 13.4 (<3.5-35.0) ng/L B-Natriuretic Peptide 59 (<100) pg/mL Total Protein (6.5-8.0) g/dL Albumin (3.5-5.0) g/dL <Shaunna Kiran, [employer] - Last Filed: 10/16/22 17:55> Lab Results 10/16/22 10/16/22 10/16/22 Range/Units 18:17 18:17 18:17 WBC 8.4 (4.8-10.8) X10*3/uL RBC 5.03 (4.60-5.80) X10*6/uL Hgb 14.0 (14.0-18.0) g/dl Hct 41.6 L (42.0-52.0) % MCV 82.7 (80.0-98.0) fL MCH 27.8 (27.0-33.0) pg MCHC 33.7 (31.0-36.0) g/dl RDW 12.7 (11.0-16.0) % Plt Count 233 (160-400) X10*3/uL MPV 11.0 (9.4-12.4) fL Immature Gran % (Auto) 0.5 H (0.0-0.4) % Neut % (Auto) 68.4 (45-73) % Lymph % (Auto) 24.8 (20-40) % [place] % (Auto) 5.1 (2-11) % Eos % (Auto) 0.8 (0-4) % Baso % (Auto) 0.4 (0-2) % Lymph # (Auto) 2.1 (1.2-4.9) X10*3/uL [place] # (Auto) 0.4 (0.1-1.2) X10*3/uL Eos # (Auto) 0.1 (0.0-0.4) X10*3/uL Baso # (Auto) 0.0 (0.0-0.2) X10*3/uL Abs Immat Gran (auto) 0.04 H (0.00-0.03) X10*3/uL Absolute Neuts (auto) 5.7 (2.0-8.3) x10*3/uL Absolute Nucleated RBC 0.000 (0.0-0.012) X10*3/uL Nucleated RBC % (auto) 0.0 (0.0-0.2) /100WBC PT 11.6 (10.0-13.1) SEC INR 1.0 (0.9-1.1) D-Dimer High Sensitivty < 150 NG/ML Sodium 142 (135-145) mmol/L Potassium 3.2 L (3.3-5.1) mmol/L Chloride 105 (96-108) mmol/L Carbon Dioxide 26 (22-29) mmol/L Anion Gap 14 (12-20) BUN 9 (9-16) mg/dL Creatinine 1.07 (0.5-1.4) mg/dL Estim Creat Clear Calc 119.2 Estimated GFR > 60 Random Glucose 144 H (60-115) mg/dL Calcium 9.4 (8.4-10.2) mg/dL Magnesium 2.0 (1.6-2.6) mg/dL Total Bilirubin 1.7 H (0.0-1.0) mg/dL Direct Bilirubin 0.3 (0.0-0.5) mg/dL AST 14 (5-37) U/L ALT 16 (0-40) U/L Alkaline Phosphatase 47 (39-117) U/L Troponin I High Sens (<3.5-35.0) ng/L B-Natriuretic Peptide (<100) pg/mL Total Protein 7.1 (6.5-8.0) g/dL Albumin 4.3 (3.5-5.0) g/dL 10/16/22 10/16/22 10/16/22 Range/Units 18:17 18:17 21:15 WBC (4.8-10.8) X10*3/uL RBC (4.60-5.80) X10*6/uL Hgb (14.0-18.0) g/dl Hct (42.0-52.0) % MCV (80.0-98.0) fL MCH (27.0-33.0) pg MCHC (31.0-36.0) g/dl RDW (11.0-16.0) % Plt Count (160-400) X10*3/uL MPV (9.4-12.4) fL Immature Gran % (Auto) (0.0-0.4) % Neut % (Auto) (45-73) % Lymph % (Auto) (20-40) % [place] % (Auto) (2-11) % Eos % (Auto) (0-4) % Baso % (Auto) (0-2) % Lymph # (Auto) (1.2-4.9) X10*3/uL [place] # (Auto) (0.1-1.2) X10*3/uL Eos # (Auto) (0.0-0.4) X10*3/uL Baso # (Auto) (0.0-0.2) X10*3/uL Abs Immat Gran (auto) (0.00-0.03) X10*3/uL Absolute Neuts (auto) (2.0-8.3) x10*3/uL Absolute Nucleated RBC (0.0-0.012) X10*3/uL Nucleated RBC % (auto) (0.0-0.2) /100WBC PT (10.0-13.1) SEC INR (0.9-1.1) D-Dimer High Sensitivty NG/ML Sodium (135-145) mmol/L Potassium (3.3-5.1) mmol/L Chloride (96-108) mmol/L Carbon Dioxide (22-29) mmol/L Anion Gap (12-20) BUN (9-16) mg/dL Creatinine (0.5-1.4) mg/dL Estim Creat Clear Calc Estimated GFR Random Glucose (60-115) mg/dL Calcium (8.4-10.2) mg/dL Magnesium (1.6-2.6) mg/dL Total Bilirubin (0.0-1.0) mg/dL Direct Bilirubin (0.0-0.5) mg/dL AST (5-37) U/L ALT (0-40) U/L Alkaline Phosphatase (39-117) U/L Troponin I High Sens 14.5 13.4 (<3.5-35.0) ng/L B-Natriuretic Peptide 59 (<100) pg/mL Total Protein (6.5-8.0) g/dL Albumin (3.5-5.0) g/dL <DESIRAE Bauer - Last Filed: 10/16/22 22:09> Independent Interpretation I performed an independent interpretation of an: EKG (Ventricular rate of 97, RI normal, QRS normal, QT/QTC normal, EKG with normal sinus rhythm, left anterior fascicular block, when compared to previous there is no longer an incomplete right bundle ), Plain X-Ray and CT Scan <DESIRAE Bauer - Last Filed: 10/16/22 22:09> Radiology Impression Discussion of test interpretation with radiology: I have reviewed the radiologist's reading. <DESIRAE Bauer - Last Filed: 10/16/22 22:09> Core Measures AMI core measures followed: Yes <DESIRAE Bauer - Last Filed: 10/16/22 22:09> Measure exclusions: not indicated <DESIRAE Bauer - Last Filed: 10/16/22 22:09> Critical Care Time Critical Care Time Critical Care Time: No <DESIRAE Bauer - Last Filed: 10/16/22 22:09> Discharge Plan Discharge Clinical Impression: Chest pain, Anxiety, Hypertension <Shaunna Kiran NP - Last Filed: 10/16/22 17:55> Patient Disposition: Home, Self-Care <Shaunna Kiran NP - Last Filed: 10/16/22 17:55> Instructions: Chest Pain (ED), Hypertension (ED), Anxiety (ED) <Shaunna Kiran NP - Last Filed: 10/16/22 17:55> Additional Instructions: Take your medications as prescribed. If you were prescribed antibiotics today, it is important that you take your medication to their entirety, do not skip any doses, do not finish them early. Follow-up with your primary care provider this week. Return to the emergency department with new or worsening symptoms. Such as fevers, chills, chest pain, shortness of breath, nausea, vomiting, dizziness, headache, vision changes, lethargy In case of emergency call 911 Please check your blood pressure Sunday, Sunday, Sunday, write it down and sure with your primary care provider. <Shaunna Kiran NP - Last Filed: 10/16/22 17:55> Prescriptions: New lorazepam [Ativan] 0.5 mg tablet 0.5 mg PO DAILY PRN (Reason: anxiety) Qty: 6 0RF No Action losartan 100 mg tablet 100 mg PO DAILY amlodipine 10 mg tablet 10 mg PO QAM carvedilol [Coreg] 6.25 mg tablet 6.25 mg PO BID 30 Days Qty: 60 5RF Rx Instructions: must administer with a meal/food <Shaunna Kiran NP - Last Filed: 10/16/22 17:55> Referrals: [facility] [place] [facility] [Provider Group] - 2 days Philomena Gongora FNP [Primary Care Provider] - 2 days <Shaunna Kiran NP - Last Filed: 10/16/22 17:55> Stand Alone Forms: Work/School Release <Shaunna Kiran NP - Last Filed: 10/16/22 17:55>
[2022-10-16 17:53] VITALS: BP 151/114; PULSE 100; RESP 18; TEMP 36.7; O2SAT 98; BMI 42.6
[2022-10-16 18:21] LABS: MANUAL DIFF FLAG NO
[2022-10-16 18:28] VITALS: BP 157/87; PULSE 84; RESP 18; O2SAT 99
[2022-10-16 18:28] LABS: Basophils Percent Auto 0.4 % (0-2); Eosinophils Absolute Auto 0.1 X10*3/uL (0.0-0.4); Eosinophils Percent Auto 0.8 % (0-4); Hematocrit 41.6 % (42.0-52.0); Imm Gran Abs Auto 0.04 X10*3/uL (0.00-0.03); Imm Gran Pct Auto 0.5 % (0.0-0.4); Lymphocytes Absolute Auto 2.1 X10*3/uL (1.2-4.9); Lymphocytes Percent Auto 24.8 % (20-40); Mean Corpuscular HGB Conc 33.7 g/dl (31.0-36.0); Mean Corpuscular Hemoglobin 27.8 pg (27.0-33.0); Mean Corpuscular Volume 82.7 fL (80.0-98.0); Monocytes Absolute Auto 0.4 X10*3/uL (0.1-1.2); Monocytes Percent Auto 5.1 % (2-11); Neutrophils Absolute Auto 5.7 x10*3/uL (2.0-8.3); Neutrophils Percent Auto 68.4 % (45-73); Platelet Count 233 X10*3/uL (160-400); Red Blood Count 5.03 X10*6/uL (4.60-5.80); Red Cell Distribution Width 12.7 % (11.0-16.0); White Blood Count 8.4 X10*3/uL (4.8-10.8)
[2022-10-16 18:32] LABS: Prothrombin Time 11.6 SEC (10.0-13.1)
[2022-10-16 18:40] LABS: Alanine Aminotransferase 16 U/L (0-40); Albumin Level 4.3 g/dL (3.5-5.0); Alkaline Phosphatase 47 U/L (39-117); Anion Gap 14 (12-20); Aspartate Amino Transferase 14 U/L (5-37); Bilirubin Direct 0.3 mg/dL (0.0-0.5); Bilirubin Total 1.7 mg/dL (0.0-1.0); Blood Urea Nitrogen 9 mg/dL (9-16); Calcium 9.4 mg/dL (8.4-10.2); Carbon Dioxide 26 mmol/L (22-29); Chloride 105 mmol/L (96-108); Creatinine Clr Calc Pharmacy 119.2; Estimated Glomerular Filt Rate > 60; Glucose Random 144 mg/dL (60-115); Potassium 3.2 mmol/L (3.3-5.1); Sodium 142 mmol/L (135-145); Total Protein 7.1 g/dL (6.5-8.0)
[2022-10-16 18:47] LABS: Troponin-I High Sensitivity 14.5 ng/L (<3.5-35.0)
[2022-10-16] MEDS: LORazepam 1 MG TABLET PO (18:48)
[2022-10-16 19:04] LABS: D Dimer High Sensitivity < 150 NG/ML
[2022-10-16 20:25] VITALS: BP 128/92; PULSE 65; RESP 17; TEMP 36.7; O2SAT 94
[2022-10-16 20:52] LABS: B Type Natriuretic Peptide 59 pg/mL (<100)
[2022-10-16] MEDS: Potassium Chloride ER 20 MEQ TAB.ER.PRT PO (21:18)
[2022-10-16 21:42] LABS: Troponin-I High Sensitivity 13.4 ng/L (<3.5-35.0)
== END 2022-10-16 22:35 | disposition home or self-care (01) ==
PROVIDERS: Nurse Practitioner Family; Physician Assistant; Emergency Provider Emergency Medicine; PCP Registered Nurse
DX: R07.89 Other chest pain (principal); R06.02 Shortness of breath; F41.1 Generalized anxiety disorder; F43.0 Acute stress reaction; I10 Essential (primary) hypertension; Z79.899 Other long term (current) drug therapy
CPT/HCPCS: 36415; 71046; 80048; 80076; 83735; 83880; 84484; 85025; 85379; 85610; 93005; 99283; 99285

== ENCOUNTER → 2022-10-27 14:59 | Outpatient (REF) | payer MEDICAID, SELFPAY ==
--- NOTE | 2022-10-27 15:01 | CA_ITS ---
Transthoracic Echocardiogram Patient (Last, First, Middle): Thierry Luis, Gender: Male Date of : 1980 Age: 42 Procedure Date: 10/27/2022 Procedure Type: Transthoracic Echocardiogram Location: OP Height: 175.26 cm Weight: 128.82 kg BSA: 2.40 m2 Heart Rate: bpm BP: 150 / 100 mmHg [employer]: TO Referring MD: Rich Quiroga MD Symptoms: I10 - Essential (primary) hypertension Study Quality: Fair/Contrast ECG Rhythm: Sinus Conclusions: - The left ventricular systolic function is normal. The calculated ejection fraction is 59% by biplane method. - There is severe septal asymmetric hypertrophy. - There is moderately increased left ventricular wall thickness. - No obvious valvular pathology seen on this study. Findings Procedure Information Contrast agent, definity, is being given per protocol without apparent complications. Left Ventricle Normal left ventricular cavity size. There is moderately increased left ventricular wall thickness. The left ventricular systolic function is normal. The calculated ejection fraction is 59% by biplane method. There is no evidence of regional wall motion abnormalities. Diastolic function is normal for age. There is severe septal asymmetric hypertrophy. Right Ventricle Normal right ventricular cavity size and systolic function. Atria The left atrium is mildly dilated. The right atrium is normal in size. Aortic Valve There is a normal trileaflet aortic valve. There is no aortic valve stenosis. There is no aortic valve regurgitation. Mitral Valve The mitral valve appears normal. There is trace mitral valve regurgitation. There is no mitral valve stenosis. Pulmonic Valve The pulmonic valve is likely normal. Tricuspid Valve There is trace tricuspid valve regurgitation. There is no evidence of pulmonary hypertension. Great Vessels The asc aorta is normal in size. Venous The inferior vena cava is normal in size and collapses greater than 50% with inspiration. Pericardium/Pleural There is no evidence of pericardial effusion. Prior Study Comparison No prior study available for comparison. Recommendations, Care & Conclusions No obvious valvular pathology seen on this study. Measurements 2D Linear Measurements IVSd: 2.01 0.6-0.9/0.6-1.0 cm LVIDd: 5.52 3.9-5.3/4.2-5.9 cm LVIDd Index: 2.30 2.4-3.2/2.2-3.1 cm/m2 LVIDs: 3.57 2.0-3.6 cm LVPWd: 1.32 0.7-1.1 cm LA Diam: 4.60 2.7-3.8/3.0-4.0 cm LAIDs Index: 1.92 1.5-2.3 cm/m2 LV Mass: 545.96 67-162/88-224 g LV Mass Index: 227.48 43-95/49-115 g/m2 LVOT Diam: 2.30 3.0+(-)1.3 cm 2D Systolic Function EF 4C: 62.00 >55% EF 2C: 55.30 >55% EF BiP: 59.00 >55% Mitral Valve MV VTI: 0.32 MV Pk Jose Rafael: 0.83 MV Mn Jose Rafael: 0.45 MV Pk Grad: 3.00 MV Mn Grad: 1.00 MV Pk E: 0.76 MV PK A: 0.36 MV Decel Time: 148.00 E/A: 2.10 E'Lateral: 8.92 E'Medial: 6.09 E/E' Med: 12.50 E/E' Lat: 8.60 PHT: 43.00 MVA PHT: 5.12 MVA Continuity: 2.06 [place]: 5.16 Aortic Valve AoV Pk Jose Rafael: 1.40 AoV Mn Jose Rafael: 0.98 AoV VTI: 0.25 AoV Pk Grad: 8.00 Aov Mn Grad: 4.00 KALE Cont.VTI: 2.62 LVOT LVOT Pk Jose Rafael: 0.80 LVOT Mn Jose Rafael: 0.56 LVOT VTI: 0.16 LVOT Pk Grad: 3.00 LVOT Mn Grad: 1.00 LVOT Diam: 2.30 LVOT Area: 4.15 Diastolic Function MV Pk E: 0.76 MV Pk A: 0.36 E/A: 2.10 E'Medial: 6.09 E/E' Med: 12.50 E' Laterial: 8.92 E/E' Lat: 8.60 Right Ventricle TAPSE (mm): 18.50 TVS' Jose Rafael: 12.60 Tricuspid Valve TR Pk Jose Rafael: 1.57 TR Pk Grad: 10.00 RA Press: 3.00 RVSP: 13.00 Great Vessels Aorta Sinus of Valsalva: 3.75 2.0-3.5 cm Ao Asc: 3.30 2.1-3.4 cm Updated in Other Vendor System with Status of Final Rich Quiroga MD electronically signed on 10/28/2022 1:38:17 PM with status of Final
== END ==
LOC: HO.CARD 14:59
PROVIDERS: PCP Registered Nurse; Visit Provider Internal Medicine
DX: R94.31 Abnormal electrocardiogram [ECG] [EKG] (principal); I10 Essential (primary) hypertension
CPT/HCPCS: 93306; Q9957

== ENCOUNTER → 2022-11-09 10:57 | Outpatient (REF) | payer MEDICAID, SELFPAY ==
--- NOTE | 2022-11-09 11:00 | CA_ITS ---
Acquisition Time: 2022-11-09 11:17:24 Total Exercise Time: 00:05:29 Test Indications: CP, SOB Medications: SEE H Protocol: LAVERNE Max HR: 181 BPM 102% of Pred: 177 BPM Max BP: 200/130 mmHG Max Work Load: 7.0 METS Exercise stress test with exercise 5 min 59 sec of Laverne protocol, achieving 93% MPHR, with need to stop due to moderate sob, 7/10 sharp tightness in mid chest, without arrythmia, with hypertensive response to exercise with max BP 200/130, without EKG changes meeting criteria for ischemia with exercise, baseline EKG has ST/ T wave abnormalites which improve during exercise and return in recovery. Echo images obtained by tech at rest and immediately post peak exercise, Definity contrast used. Chest discomfort resolved with 2 min of rest. SOB gradually improved back to normal. At end of recovery his BP was 138/100. He had not taken Carvedilol this am. Test reviewed with Dr Nash STRESS ECHO : Technique : Images obtained at rest and immediately post exercise within 1 minute 5 seconds. Definity contrast was used to enhance endocardial definition. Images were obtained in multiple views and compared side to side. Findings : Images at rest were of adequate quality. LV systolic function is normal with normal wall motion. Post exercise images are of borderline quality. There is good augmentation of overall LV systolic function with no regional wall motion abnormalities. Conclusion : Stress echo is negative for ischemia Referred By: Rich Quiroga Overread By: FRANKLYN FU MD
== END ==
LOC: HO.CARD 10:57
PROVIDERS: PCP Registered Nurse; Visit Provider Internal Medicine
DX: R07.2 Precordial pain (principal)
CPT/HCPCS: 93350; Q9957

== ENCOUNTER → 2022-11-20 15:00 | Outpatient (BNVA) | payer MEDICAID, SELFPAY | PROVIDERS: PCP Registered Nurse; Referring Provider Registered Nurse; Visit Provider Nurse Practitioner Family | DX: I10 Essential (primary) hypertension (principal); R07.89 Other chest pain; G47.33 Obstructive sleep apnea (adult) (pediatric); E66.01 Morbid (severe) obesity due to excess calories; Z68.41 Body mass index [BMI] 40.0-44.9, adult; Z72.0 Tobacco use | CPT/HCPCS: 99212 ==

== ENCOUNTER → 2022-12-26 16:07 | Outpatient (REF) | payer MEDICAID, SELFPAY | LOC: HO.SL 16:07 | PROVIDERS: PCP Registered Nurse; Referring Provider Internal Medicine; Visit Provider Registered Nurse | DX: G47.33 Obstructive sleep apnea (adult) (pediatric) (principal) | CPT/HCPCS: 95806 ==

== ENCOUNTER → 2022-12-26 16:13 | Outpatient (BNV) | payer MEDICAID, SELFPAY | PROVIDERS: PCP Registered Nurse; Referring Provider Internal Medicine; Visit Provider Internal Medicine | DX: G47.33 Obstructive sleep apnea (adult) (pediatric) (principal) | CPT/HCPCS: 95806 ==

== ENCOUNTER 2023-06-12 20:33 | Inpatient (IN) | payer MEDICAID, SELFPAY ==
--- NOTE | 2023-06-12 | ECG_ITS ---
Test Reason : CHEST PAIN Blood Pressure : / mmHG Vent. Rate : 107 BPM Atrial Rate : 107 BPM P-R Int : 150 ms QRS Dur : 094 ms QT Int : 360 ms P-R-T Axes : 047 -58 115 degrees QTc Int : 480 ms Sinus tachycardia Left anterior fascicular block Minimal voltage criteria for LVH, may be normal variant ( Oakes product ) ST & T wave abnormality, consider lateral ischemia Abnormal ECG When compared with ECG of 16-OCT-2022 17:46, No significant change was found Referred By: Generic ED Physician Electronically Signed By:FRANKLYN FU MD
--- NOTE | ~2023-06-12 | XR_ITS ---
EXAMINATION: XR CHEST CLINICAL INFORMATION: Chest pain COMPARISON: Chest x-ray 10/16/2022 TECHNIQUE: Frontal view of the chest was obtained. FINDINGS: Lungs are well-expanded and clear of acute pneumonic process. There is widened superior mediastinum likely ectatic vessels. Similar findings were seen on 10/16/2022 chest x-ray. Heart size and pulmonary vascularity is normal. No gross bony abnormality seen. XR/XR chest 1V IMPRESSION: 1. No acute cardiopulmonary process seen. 2. Widened superior mediastinum likely ectatic vessels.
[2023-06-12 20:41] VITALS: BP 209/122; PULSE 107; RESP 18; TEMP 36.8; O2SAT 97; BMI 45.6
--- NOTE | 2023-06-12 20:43 | ED.CHESTPAIN ---
HPI - Chest Pain General Chief Complaint: Chest Pain Stated Complaint: chest pain Time Seen by Provider: 06/12/23 21:16 Source: patient Mode of arrival: ambulatory Limitations: no limitations History of Present Illness HPI narrative: Patient comes to the emergency room complaining of chest pain since yesterday. It has been almost 36 hours since the symptoms started. Patient states that yesterday here was shoveling snow when the lid left chest pain started. When patient arrived to triage, it was noted that his blood pressure was elevated, above 200 systolic. Patient states that he is supposed to take 3 different blood pressure medications but has not taking any for several months , patient states that he does not take them for no particular reason. Patient states the chest pain is constant, nonradiating, states on the sternal/ left side of the chest. Related Data Home Medications Medication Instructions Recorded Confirmed amlodipine 10 mg tablet 10 mg PO QAM 07/27/22 11/20/22 losartan 100 mg tablet 100 mg PO DAILY 07/27/22 11/20/22 Previous Rx's Medication Instructions Recorded lorazepam 0.5 mg tablet (Ativan) 0.5 mg PO DAILY PRN anxiety #6 tabs 10/16/22 carvedilol 12.5 mg tablet 12.5 mg PO BID 90 days #180 tabs 11/20/22 Allergies Allergy/AdvReac Type Severity Reaction Status Date / Time No Known Allergies Allergy Verified 06/12/23 20:37 Review of Systems Review of Systems: Constitutional : No Weight loss, No Fever, No Chills, No Night Sweats, No Fatigue, No Malaise ENT/Mouth : No Hearing loss, No Ear Pain, No Nasal Congestion, No Sinus Pain, No Hoarseness, No sore throat, No Rhinorrhea, No Swallowing Difficulty Eyes: No Eye Pain, No Swelling, No Redness, No Foreign Body, No Discharge, No Vision Changes Cardiovascular : Complaining of sternal/left Chest Pain, No SOB, No Dyspnea on Exertion, No Orthopnea, No Edema, No Palpitations Respiratory : No Cough, No Sputum, No Wheezing, No Smoke Exposure, No Dyspnea Gastrointestinal : No Nausea, No Vomiting, No Diarrhea, No Constipation, No abdominal Pain, No Hematochezia, No Melena Genitourinary : no irregular bleeding, No Dysuria, No Urinary Frequency, No Hematuria, No Urinary Incontinence, No Urgency, No Flank Pain, No Urinary Flow Changes, No Hesitancy Musculoskeletal : No joint pain, No Myalgias, No Joint Swelling Skin : No Skin Lesions, No rash Neuro : No Weakness, No Numbness, No Paresthesias, No Loss of Consciousness, No Dizziness, No Headache Psych : No Anxiety/Panic, No Depression, No SI/HI/AH/VH, No Social Issues, Heme/Lymph: No Bruising, No Bleeding,No Lymphadenopathy Endocrine : No Polyuria, No Polydipsia, No Temperature Intolerance PMFSH Past Medical History Onset Date is defined in the Problem List Problems that require an onset date and time if occurred within 24 hrs of arrival to the ED Aortic Dissection and Rupture; Neurologic impairment; Cardiopulmonary Arrest; Endotracheal Intubation; Insertion or Replacement of Mechanical Circulatory Assist Device Medical History Morbid obesity Essential hypertension Obstructive sleep apnea Tobacco use disorder Family History Family History Mother HTN (hypertension) Father Kidney failure CVD (cardiovascular disease) HTN (hypertension) Social History Social History Patient Tobacco Use Status: Never used Tobacco Cigarettes Per Day: 10 Years Smoked: 17 +/- Smoked in Last 30 Days: Yes Use of substances other than those prescribed or required for medical reasons: Refusing to respond Advance Directives: No Advance Directives Information Provided: No Nutrition Risks: No Nutritional Risk service: No Current occupational status: employed Physical Exam Vital Signs: Vital Signs: Last Vital Signs Temp 98.2 F 06/12/23 20:41 Pulse 81 06/13/23 06:00 Resp 18 06/13/23 06:00 BP 151/96 H 06/13/23 06:00 Pulse Ox 97 06/13/23 06:00 O2 Del Method Room Air 06/13/23 06:00 BMI result Body Mass Index 45.6 Const: Other: Appearance: Alert. Oriented X3. No acute distress. Eyes: Pupils equal, round and reactive to light. ENT: Pharynx normal. Neck: Normal inspection. Neck supple. No lymph nodes noted. No crepitus CVS: Normal heart rate and rhythm. Pulses normal. Normal S1 and S2. Reproducible chest pain to palpation on the left side of the chest. Respiratory: No respiratory distress. Breath sounds normal. No Wheezing. No rales Abdomen: Soft and nontender. No rigidity. No distention. Skin: Skin warm and dry. Normal skin color. Normal skin turgor. Extremities: No lower extremity edema. No Lacerations. No Rash Neuro: Oriented X 3. No motor deficit. No sensory deficit. Moving all extremities. No slurred speech. CN 2 through 12 grossly intact Psych: calm, cooperative, normal affect Course Course Course Narrative: RME: 42 yold male with pmh of HTN and obesity with family history of MEN with NM presents to ED for left sided chest pain since yesterday. Patient noncompliant with blood pressure meds. blood pressure is 209/122. Charge nurse shauna made aware of patient to be brought back in. Medications Administered Generic Name Dose Route Start Last Admin Trade Name Freq PRN Reason Stop Dose Admin Heparin Sodium/Sodium Chloride 25,000 unit in 250 mls @ 0 mls/hr 06/13/23 02:30 06/13/23 02:59 Heparin Sodium,Porcine/1/2ns IVCONT 14 units/kg/hr .Q0M JAUN 19.05 mls/hr Administration Protocol Per Protocol Discontinued Medications Generic Name Dose Route Start Last Admin Trade Name Freq PRN Reason Stop Dose Admin Amlodipine Besylate 10 mg 06/12/23 21:27 06/12/23 21:52 Amlodipine Besylate 10 Mg Tablet PO 06/12/23 21:28 10 mg ONCE ONE Administration Protocol Aspirin 325 mg 06/13/23 02:14 06/13/23 02:47 Aspirin Enteric Coated 325 Mg Tablet. PO 06/13/23 02:15 325 mg ONCE ONE Administration Atorvastatin Calcium 80 mg 06/13/23 02:21 06/13/23 02:47 Atorvastatin Calcium 80 Mg Tablet PO 06/13/23 02:22 80 mg ONCE ONE Administration Carvedilol 12.5 mg 06/12/23 21:27 06/12/23 21:51 Carvedilol 12.5 Mg Tablet PO 06/12/23 21:28 12.5 mg ONCE ONE Administration Protocol Heparin Sodium (Porcine) 10,000 unit 06/13/23 02:51 06/13/23 02:58 Heparin Sodium,Porcine 5,000 Unit/Ml Vial IVPUSH 06/13/23 02:52 10,000 unit ONCE ONE Administration Losartan Potassium 100 mg 06/12/23 21:27 06/12/23 21:51 Losartan Potassium 50 Mg Tablet PO 06/12/23 21:28 100 mg ONCE ONE Administration Protocol Potassium Chloride 60 meq 06/12/23 22:06 06/12/23 22:16 Potassium Chloride Packet 20 Meq Packet PO 06/12/23 22:07 60 meq ONCE ONE Administration Medical Decision Making Medical Decision Making [facility] Narrative: -my interpretation of EKG: Sinus tachycardia, heart rate 107, no ST segment depression or elevation, no T-wave inversion, QTC 480 -my interpretation of labs: Normal Hematology, at baseline. Coagulation within normal limits, potassium slightly decreased 3.1, repleted p.o.. Troponin bump 37.9, BNP slightly elevated -my interpretation of chest x-ray: No edema --my interpretation of 2nd set of labs: Potassium back to normal 3.5. However, patient's troponin significantly increased due to 200.9 -my interpretation of EKG 2.: Normal sinus rhythm, 178, no ST segment depression elevation, patient has new T-wave inversions in lead V4 V5 V6 which are new from previous EKG. -patient does not have any chest pain at this time. -patient's vital stable, blood pressure 140/77, heart rate 62, respirations 13, oxygen saturation 98% on room air. Patient asymptomatic -patient will be started on heparin. -I discussed the patient with Dr. Yin, patient being admitted. Differential Diagnosis Differential Diagnoses: The differential diagnosis associated with the presentation includes (Hypertensive urgency, hypertensive emergency, NSTEMI) Admission/Observation Consideration of admission/observation: Escalation of care including admission/observation considered Consult Healthcare Provider Management of the patient was discussed with: Hospitalist Lab Data [facility] Lab Attestation statement: I reviewed the patient's lab results. 06/13/23 05:11 06/13/23 05:11 Labs: Lab Results 06/12/23 06/13/23 Range/Units 20:57 01:09 WBC 8.3 (4.8-10.8) X10*3/uL RBC 4.91 (4.60-5.80) X10*6/uL Hgb 13.7 L (14.0-18.0) g/dl Hct 40.7 L (42.0-52.0) % MCV 82.9 (80.0-98.0) fL MCH 27.9 (27.0-33.0) pg MCHC 33.7 (31.0-36.0) g/dl RDW 13.0 (11.0-16.0) % Plt Count 171 D (160-400) X10*3/uL MPV 11.1 (9.4-12.4) fL Immature Gran % (Auto) 0.2 (0.0-0.4) % Neut % (Auto) 67.5 (45-73) % Lymph % (Auto) 25.5 (20-40) % [place] % (Auto) 5.6 (2-11) % Eos % (Auto) 1.0 (0-4) % Baso % (Auto) 0.2 (0-2) % Lymph # (Auto) 2.1 (1.2-4.9) X10*3/uL [place] # (Auto) 0.5 (0.1-1.2) X10*3/uL Eos # (Auto) 0.1 (0.0-0.4) X10*3/uL Baso # (Auto) 0.0 (0.0-0.2) X10*3/uL Abs Immat Gran (auto) 0.02 (0.00-0.03) X10*3/uL Absolute Neuts (auto) 5.6 (2.0-8.3) x10*3/uL Absolute Nucleated RBC 0.000 (0.0-0.012) X10*3/uL Nucleated RBC % (auto) 0.0 (0.0-0.2) /100WBC PT 11.5 (11.1-13.3) SEC INR 0.9 (0.9-1.1) APTT 33.5 (26.0-36.4) SEC Sodium 143 144 (135-145) mmol/L Potassium 3.1 L 3.5 (3.3-5.1) mmol/L Chloride 105 108 (96-108) mmol/L Carbon Dioxide 26 25 (22-29) mmol/L Anion Gap 15 15 (12-20) BUN 17 H 16 (9-16) mg/dL Creatinine 1.09 0.96 (0.5-1.4) mg/dL Estim Creat Clear Calc 118.0 133.9 Estimated GFR > 60 > 60 Random Glucose 162 H 122 H (60-115) mg/dL Calcium 9.9 9.3 D (8.4-10.2) mg/dL Total Bilirubin 1.4 H (0.0-1.0) mg/dL AST 22 (5-37) U/L ALT 23 (0-40) U/L Alkaline Phosphatase 58 (39-117) U/L Troponin I High Sens 37.9 H D 200.9 H* D (<3.5-35.0) ng/L B-Natriuretic Peptide 124 H (<100) pg/mL Total Protein 7.5 (6.5-8.0) g/dL Albumin 4.3 (3.5-5.0) g/dL Independent Interpretation I performed an independent interpretation of an: EKG and Plain X-Ray Radiology Impression Discussion of test interpretation with radiology: I have reviewed the radiologist's reading. Radiologist Impression: FINDINGS: Lungs are well-expanded and clear of acute pneumonic process. There is widened superior mediastinum likely ectatic vessels. Similar findings were seen on 10/16/2022 chest x-ray. Heart size and pulmonary vascularity is normal. No gross bony abnormality seen. XR/XR chest 1V IMPRESSION: 1. No acute cardiopulmonary process seen. 2. Widened superior mediastinum likely ectatic vessels. External Record Review External record reviewed: Inpatient record Critical Care Time Critical Care Time Critical Care Time: Yes Total Critical Care Time: 90 Attestation: I have personally provided critical care time. Time includes review of lab data, radiology results, discussion with consultants, and monitoring for potential decompensation. Intervention performed as documented. Discharge Plan Discharge Clinical Impression: Hypertensive emergency, Non-ST elevation NM (NSTEMI) Patient Disposition: Admitted As Inpatient
[2023-06-12 21:02] LABS: MANUAL DIFF FLAG NO
[2023-06-12 21:03] LABS: Basophils Percent Auto 0.2 % (0-2); Eosinophils Absolute Auto 0.1 X10*3/uL (0.0-0.4); Hematocrit 40.7 % (42.0-52.0); Hemoglobin 13.7 g/dl (14.0-18.0); Imm Gran Abs Auto 0.02 X10*3/uL (0.00-0.03); Imm Gran Pct Auto 0.2 % (0.0-0.4); Lymphocytes Absolute Auto 2.1 X10*3/uL (1.2-4.9); Lymphocytes Percent Auto 25.5 % (20-40); Mean Corpuscular HGB Conc 33.7 g/dl (31.0-36.0); Mean Corpuscular Hemoglobin 27.9 pg (27.0-33.0); Mean Corpuscular Volume 82.9 fL (80.0-98.0); Mean Platelet Volume 11.1 fL (9.4-12.4); Monocytes Absolute Auto 0.5 X10*3/uL (0.1-1.2); Monocytes Percent Auto 5.6 % (2-11); Neutrophils Absolute Auto 5.6 x10*3/uL (2.0-8.3); Neutrophils Percent Auto 67.5 % (45-73); Platelet Count 171 X10*3/uL (160-400); Red Blood Count 4.91 X10*6/uL (4.60-5.80); White Blood Count 8.3 X10*3/uL (4.8-10.8)
[2023-06-12 21:09] LABS: INTERNATIONAL NORM RATIO 0.9 (0.9-1.1); Prothrombin Time 11.5 SEC (11.1-13.3)
[2023-06-12 21:11] LABS: Partial Thromboplastin Time 33.5 SEC (26.0-36.4)
[2023-06-12 21:18] LABS: Alanine Aminotransferase 23 U/L (0-40); Albumin Level 4.3 g/dL (3.5-5.0); Alkaline Phosphatase 58 U/L (39-117); Anion Gap 15 (12-20); Aspartate Amino Transferase 22 U/L (5-37); Bilirubin Total 1.4 mg/dL (0.0-1.0); Blood Urea Nitrogen 17 mg/dL (9-16); Calcium 9.9 mg/dL (8.4-10.2); Carbon Dioxide 26 mmol/L (22-29); Chloride 105 mmol/L (96-108); Estimated Glomerular Filt Rate > 60; Glucose Random 162 mg/dL (60-115); Potassium 3.1 mmol/L (3.3-5.1); Sodium 143 mmol/L (135-145); Total Protein 7.5 g/dL (6.5-8.0)
[2023-06-12 21:21] LABS: B Type Natriuretic Peptide 124 pg/mL (<100)
[2023-06-12 21:25] LABS: Troponin-I High Sensitivity 37.9 ng/L (<3.5-35.0)
[2023-06-12 21:51] VITALS: BP 175/99; PULSE 95; RESP 20; O2SAT 97
[2023-06-12] MEDS: carvediloL 12.5 MG TABLET PO (21:51)
[2023-06-12] MEDS: Losartan Potassium 50 MG TABLET 100 MG PO (21:51)
[2023-06-12] MEDS: amLODIPine Besylate 10 MG TABLET PO (21:52)
--- NOTE | 2023-06-12 22:00 | PC.NURSE ---
this rn assumed care of pt. pt reporting onset of midsternal chest pain 10/11. pt reports he has hx of hypertension but is not compliant with medications. pt medicated per mar at this time. pt normal sinus on tele 95-. pt denies SOB, n/v/d.
[2023-06-12] MEDS: Potassium Chloride Packet 20 MEQ PACKET 60 MEQ PO (22:16)
[2023-06-12 22:35] VITALS: BP 165/97; PULSE 82; RESP 16; O2SAT 97
[2023-06-12 23:00] VITALS: BP 171/96; PULSE 86; O2SAT 98
[2023-06-12 23:59] VITALS: BP 150/88; PULSE 74; RESP 18; O2SAT 96
[2023-06-13] VITALS (10 sets, daily range): BP systolic 128–155; BP diastolic 76–106; PULSE 59–91; RESP 12–22; TEMP 36.7–36.8; O2SAT 95–99
[2023-06-13 01:33] LABS: Anion Gap 15 (12-20); Blood Urea Nitrogen 16 mg/dL (9-16); Calcium 9.3 mg/dL (8.4-10.2); Carbon Dioxide 25 mmol/L (22-29); Chloride 108 mmol/L (96-108); Creatinine Clr Calc Pharmacy 133.9; Estimated Glomerular Filt Rate > 60; Glucose Random 122 mg/dL (60-115); Potassium 3.5 mmol/L (3.3-5.1); Sodium 144 mmol/L (135-145)
[2023-06-13 01:41] LABS: Troponin-I High Sensitivity 200.9 ng/L (<3.5-35.0)
--- NOTE | 2023-06-13 02:03 | ECG_ITS ---
Test Reason : ELEVATED TROP Blood Pressure : / mmHG Vent. Rate : 078 BPM Atrial Rate : 078 BPM P-R Int : 168 ms QRS Dur : 096 ms QT Int : 412 ms P-R-T Axes : 028 -52 157 degrees QTc Int : 469 ms Normal sinus rhythm Left anterior fascicular block Moderate voltage criteria for LVH, may be normal variant ( R in aVL , [place] product ) T wave abnormality, consider lateral ischemia Prolonged QT Abnormal ECG When compared with ECG of 12-JUN-2023 20:38, T wave inversion more evident in Lateral leads Referred By: Edilia Vuong Electronically Signed By:FRANKLYN FU MD
[2023-06-13] MEDS: Aspirin Enteric Coated 325 MG TABLET.DR PO (02:47)
[2023-06-13] MEDS: Atorvastatin Calcium 80 MG TABLET PO (02:47)
[2023-06-13] MEDS: Heparin Sodium,Porcine 5,000 UNIT/ML VIAL 10000 UNIT IVPUSH (02:58)
[2023-06-13] MEDS: Heparin Sodium,Porcine/1/2NS 25,000 UNIT/250 ML IV.SOLN 19.05 UNIT IVCONT (02:59)
--- NOTE | 2023-06-13 03:02 | PC.NURSE ---
heparin bolus and drip initiated at this time. repeat heparin HD ordered for 06/13/2023 at 0855. Lorena OSBORN at bedside.
--- NOTE | 2023-06-13 04:09 | P.HPHOSP_ITS ---
History of Present Illness Date of Service: 06/13/23 Attending physician on admission: Hamilton Yin Chief Complaint: Chest pain x 2 days Patient is a 42 year old obese (BMI 45.6) [place]ican speaking male with past medical history of uncontrolled hypertension (due to non-compliance with his antihypertensive medications) who presents to the emergency room from home complaining of a persistent left sided, chest pain that started 2 days ago while he was shovelling snow. He describes it as a chest tightness of moderate intensity (8/10) that radiates to the left shoulder and forearm. He reports associated dizziness and diaphoresis but denies any nausea, vomiting, cough, shortness of breath, fevers or chills. Initial work up done ion the emergency room was significant for elevated HSTnI at 37.9 ng/L (with a delta of 200.9 ng/L). His vital signs were notable for elevated BP at 209/122 mmHg. He has so far received Aspirin, Amlodipine, Losartan and Atorvastatin and admission was then requested for continued care. He is currently chest pain free. Review of Systems 2 Review of Systems: Yes all other systems are reviewed and are negative [facility] Medical History Morbid obesity Essential hypertension Obstructive sleep apnea Tobacco use disorder Family History Mother HTN (hypertension) Father Kidney failure CVD (cardiovascular disease) HTN (hypertension) Social History Patient Tobacco Use Status: Current everyday Tobacco user Cigarettes Per Day: 10 Years Smoked: 17 +/- Smoked in Last 30 Days: Yes Use of substances other than those prescribed or required for medical reasons: Refusing to respond Advance Directives: No Advance Directives Information Provided: No service: No Current occupational status: employed Meds Allergies Allergy/AdvReac Type Severity Reaction Status Date / Time No Known Allergies Allergy Verified 06/12/23 20:37 Home Medications Medication Instructions Recorded Confirmed Last Taken Type amlodipine 10 mg tablet 10 mg PO QAM 07/27/22 11/20/22 Unknown History losartan 100 mg tablet 100 mg PO DAILY 07/27/22 11/20/22 Unknown History Physical Exam 2 Vital Signs and Narrative: Vital Signs: Last Vital Signs Temp 98.2 F 06/12/23 20:41 Pulse 91 06/13/23 03:55 Resp 16 06/13/23 03:55 BP 146/98 H 06/13/23 03:55 Pulse Ox 96 06/13/23 03:55 O2 Del Method Room Air 06/13/23 03:55 BMI result Body Mass Index 45.6 General: Well nourished. Awake, alert and oriented x 4. No apparent distress Eyes: No pallor or jaundice. PERRLA, EOMI HENT: Moist oral mucus membranes. No oropharyngeal lesions. Neck: Supple. No cervical adenopathy. No JVD Cardiovascular: Regular rate and rhythm. Normal heart sounds. No murmurs, rubs or gallops. No JVD. No peripheral edema. Respiratory: Normal respiratory effort with no accessory muscle use. CTAB. Gastrointestinal: Abdomen is soft, non-tender, non-distended. NABS. No hepatosplenomegaly' Genitourinary: Deferred Extremities: No edema. No calf tenderness. Good peripheral pulses Skin: Warm/Dry. No rashes. No mottling. Capillary refill is < 2 seconds Neurological: AAOx4. Intact speech & cognition. Normal gait & balance. CN II - XII grossly intact but not individually tested. No motor or sensory deficits Hematologic: No bleeding. No ecchymosis. No swollen or tender lymph nodes. Psychiatric: Cooperative. Appropriate mood and affect. Results Labs 06/12/23 20:57 06/13/23 01:09 Labs: Laboratory Results - last 24 hr 06/12/23 06/13/23 20:57 01:09 MCV 82.9 MCH 27.9 MCHC 33.7 RDW 13.0 Plt Count 171 D MPV 11.1 Immature Gran % (Auto) 0.2 Neut % (Auto) 67.5 Lymph % (Auto) 25.5 [place] % (Auto) 5.6 Eos % (Auto) 1.0 Baso % (Auto) 0.2 Lymph # (Auto) 2.1 [place] # (Auto) 0.5 Eos # (Auto) 0.1 Baso # (Auto) 0.0 Abs Immat Gran (auto) 0.02 Absolute Neuts (auto) 5.6 Absolute Nucleated RBC 0.000 Nucleated RBC % (auto) 0.0 PT 11.5 INR 0.9 APTT 33.5 Anion Gap 15 15 Estim Creat Clear Calc 118.0 133.9 Estimated GFR > 60 > 60 Random Glucose 162 H 122 H Calcium 9.9 9.3 D Total Bilirubin 1.4 H AST 22 ALT 23 Alkaline Phosphatase 58 B-Natriuretic Peptide 124 H Total Protein 7.5 Albumin 4.3 HSTnI => 37.9 to 200.9 ECG ECG interpretation date: 06/13/23 ECG interpretation time: 04:36 Interpretation: Sinus tachycardia at 107 bpm. Normal axis and normal intervals. No acute ischemic changes Imaging Radiologist's Impressions: Impressions Chest X-Ray 06/12/23 21:10 IMPRESSION: 1. No acute cardiopulmonary process seen. 2. Widened superior mediastinum likely ectatic vessels. Assessment and Plan (1) Non-ST elevation [place] (NSTEMI): Status: Acute (2) Hypertensive emergency: Status: Acute (3) Obstructive sleep apnea: Status: Acute (4) Morbid obesity: Status: Acute Plan Patient is a 42 year old obese (BMI 45.6) [place]ican speaking male with PMH of uncontrolled hypertension (due to non-compliance with medications) here with 1. NSTEMI - he presents with left sided chest pain and has elevated HSTnI concerning for NSTEMI - he was started on Heparin - admit to telemetry - Cardiology consult in AM 2. Hypertensive emergency - SBP > 200 with target organ damage 9NSTEMI) - 2/2 non-compliance with medications - BP improved with initial treatment in the ER - continue to monitor 3. Morbid obesity - BMI 45.6 - encourage weight loss 4. DEAN - will need sleep study and initiation of appropriate therapy 5. Treatment non-compliance - encouraged to comply with treatment DVT: Heparin drip CODE STATUS: Full code Admission for at least 2 midnights for management of NSTEMI and hypertensive emergency Total time managing care of this patient today: 75 minutes. Quality Stroke Does the patient have a stroke diagnosis?: No VTE Prior VTE?: No VTE Risk Level:: Medical - moderate - high VTE Device Contraindication: Treatment Not Indicated VTE Drug Contraindication: N/A - Med Ordered
--- NOTE | 2023-06-13 05:24 | PC.NURSE ---
pt ambulated to bathroom with steady gait, denies SOB and chest pain.
[2023-06-13 06:41] LABS: MANUAL DIFF FLAG NO
[2023-06-13 06:47] LABS: Basophils Percent Auto 0.5 % (0-2); Eosinophils Absolute Auto 0.2 X10*3/uL (0.0-0.4); Eosinophils Percent Auto 2.4 % (0-4); Hematocrit 42.7 % (42.0-52.0); Imm Gran Abs Auto 0.05 X10*3/uL (0.00-0.03); Imm Gran Pct Auto 0.6 % (0.0-0.4); Lymphocytes Absolute Auto 3.2 X10*3/uL (1.2-4.9); Lymphocytes Percent Auto 40.1 % (20-40); Mean Corpuscular HGB Conc 32.8 g/dl (31.0-36.0); Mean Corpuscular Hemoglobin 27.6 pg (27.0-33.0); Mean Corpuscular Volume 84.1 fL (80.0-98.0); Mean Platelet Volume 11.9 fL (9.4-12.4); Monocytes Absolute Auto 0.5 X10*3/uL (0.1-1.2); Monocytes Percent Auto 6.3 % (2-11); Neutrophils Percent Auto 50.1 % (45-73); Platelet Count 204 X10*3/uL (160-400); Red Blood Count 5.08 X10*6/uL (4.60-5.80); Red Cell Distribution Width 13.2 % (11.0-16.0); White Blood Count 7.9 X10*3/uL (4.8-10.8)
[2023-06-13 07:00] LABS: Anion Gap 17 (12-20); Blood Urea Nitrogen 13 mg/dL (9-16); Calcium 9.3 mg/dL (8.4-10.2); Carbon Dioxide 22 mmol/L (22-29); Chloride 107 mmol/L (96-108); Creatinine Clr Calc Pharmacy 154.9; Estimated Glomerular Filt Rate > 60; Glucose Random 120 mg/dL (60-115); Potassium 3.2 mmol/L (3.3-5.1); Sodium 143 mmol/L (135-145)
--- NOTE | 2023-06-13 07:00 | CA_ITS ---
Transthoracic Echocardiogram Patient (Last, First, Middle): Thierry Luis, Gender: Male Date of : 1980 Age: 42 Procedure Date: 06/13/2023 Procedure Type: Transthoracic Echocardiogram Location: ER Height: 172.72 cm Weight: 136.08 kg BSA: 2.43 m2 Heart Rate: 65 bpm BP: 139 / 88 mmHg Dough Molder Hand: Referring MD: Hamilton Yin MD Materials Analyst: Felipe Merlos MD Symptoms: NSTEMI Study Quality: Adequate w contrast ECG Rhythm: Sinus Conclusions: - 1. Normal LV ejection fraction of 60 65% with severe LVH with restrictive filling pattern 2. Moderately dilated left atrium 3. Normal cardiac valvular Doppler 4. Normal measured RV systolic pressure 5. No gross pericardial effusion Findings Procedure Information Contrast agent, definity, is being given per protocol without apparent complications. Left Ventricle Normal left ventricular size and systolic function. There is severely increased left ventricular wall thickness. The visually estimated ejection fraction is between 60-65%. Spectral Doppler is indicative of a restrictive filling pattern. E/E prime ratio is between 8 and 15 consistent with indeterminate filling pressures. Right Ventricle Normal right ventricular cavity size and systolic function. Atria The left atrium is moderately dilated. Interatrial shunt cannot be excluded. The right atrium is likely dilated. Aortic Valve The aortic valve structure and function is likely normal. There is no aortic valve stenosis. There is no aortic valve regurgitation. Mitral Valve Likely normal mitral valve structure and function. There is trace mitral valve regurgitation. There is no mitral valve stenosis. Pulmonic Valve The pulmonic valve was not well visualized. Tricuspid Valve Likely normal tricuspid valve structure and function. There is trace tricuspid valve regurgitation. The right ventricular systolic pressure is normal. The right ventricular systolic pressure is 18 mmHg. Normal right atrial pressure. There is no evidence of pulmonary hypertension. Great Vessels All visible segments of the aorta are normal in size. The pulmonary artery was not well visualized. There is no dilatation of the ascending aorta measuring 3.30 cm. Venous The inferior vena cava is normal in size and collapses greater than 50% with inspiration. Pericardium/Pleural There is no evidence of pericardial effusion. Prior Study Comparison Changes noted compared to prior study dated: 10/27/2022. LVH is worse Measurements 2D Linear Measurements IVSd: 1.96 0.6-0.9/0.6-1.0 cm LVIDd: 5.33 3.9-5.3/4.2-5.9 cm LVIDd Index: 2.19 2.4-3.2/2.2-3.1 cm/m2 LVIDs: 3.40 2.0-3.6 cm LVPWd: 1.87 0.7-1.1 cm LA Diam: 3.80 2.7-3.8/3.0-4.0 cm LAIDs Index: 1.56 1.5-2.3 cm/m2 LV Mass: 641.84 67-162/88-224 g LV Mass Index: 264.13 43-95/49-115 g/m2 LVOT Diam: 2.40 3.0+(-)1.3 cm 2D Systolic Function EF 4C: 69.00 >55% EF 2C: 54.10 >55% EF BiP: 62.20 >55% Mitral Valve MV Pk E: 1.03 MV PK A: 0.43 MV Decel Time: 145.00 E/A: 2.40 E'Lateral: 7.83 E'Medial: 6.96 E/E' Med: 14.80 E/E' Lat: 13.20 PHT: 42.00 MVA PHT: 5.24 Decel Baxter: 7.11 Aortic Valve AoV Pk Jose Rafael: 1.35 AoV Mn Jose Rafael: 0.85 AoV VTI: 0.27 AoV Pk Grad: 7.00 Aov Mn Grad: 3.00 KALE Cont.VTI: 2.62 LVOT LVOT Pk Jose Rafael: 0.76 LVOT Mn Jose Rafael: 0.54 LVOT VTI: 0.16 LVOT Pk Grad: 2.00 LVOT Mn Grad: 1.00 LVOT Diam: 2.40 LVOT Area: 4.52 Diastolic Function MV Pk E: 1.03 MV Pk A: 0.43 E/A: 2.40 E'Medial: 6.96 E/E' Med: 14.80 E' Laterial: 7.83 E/E' Lat: 13.20 Right Ventricle TAPSE (mm): 25.30 TVS' Jose Rafael: 17.00 Tricuspid Valve TR Pk Jose Rafael: 1.57 TR Pk Grad: 10.00 RA Press: 8.00 RVSP: 18.00 Great Vessels Aorta Sinus of Valsalva: 3.60 2.0-3.5 cm Ao Asc: 3.30 2.1-3.4 cm Pulmonary Valve PV Pk Jose Rafael: 0.96 Peak PV Grad: 4.00 Updated in Other Vendor System with Status of Final Felipe Merlos MD electronically signed on 06/13/2023 2:08:01 PM with status of Final
--- NOTE | 2023-06-13 08:13 | PM.EVENT ---
Event Note Date of Service: 06/13/23 Event Note: Patient is a 42 year old obese (BMI 45.6) Armenian speaking male with PMH of uncontrolled hypertension (due to non-compliance with medications) here with NSTEMI he presents with left sided chest pain and has elevated HSTnI concerning for NSTEMI trop 37.9, 200.9 continue IV Heparin admit edto telemetry Cardiology consult pending add asa Hypertensive emergency SBP > 200 with target organ damage BP improved with initial treatment in the ER continue to monitor Hypokalemia repleted follow BMP Morbid obesity BMI 45.6 encourage weight loss DEAN will need sleep study and initiation of appropriate therapy DVT: Heparin drip Attending Dr. Reynolds CODE STATUS: Full code Admission for at least 2 midnights for management of NSTEMI and hypertensive emergency Time Spent With Patient Time: Total time managing care of this patient today ____ minutes.
[2023-06-13] MEDS: Potassium Chloride ER 20 MEQ TAB.ER.PRT 40 MEQ PO (08:28)
[2023-06-13] MEDS: Aspirin 81 MG TAB.CHEW PO (08:28)
[2023-06-13] MEDS: 0.9 % Sodium Chloride Flush 3 ML SYRINGE IVFLUSH (08:28)
--- NOTE | 2023-06-13 09:16 | MHC.EDTECH ---
Pt ambulated to bathroom with steady gait. Pt ambulated back to room with steady gait. Patient resting comfortably in bed. Call hodges placed within reach.
[2023-06-13 09:41] LABS: PTT Heparin Drip 88.3 SEC (53-77.9)
--- NOTE | 2023-06-13 10:20 | PC.NURSE ---
sr on monitor, skin wpd, nad, no pain, no complaints, heparin drip adjusted per protocol, pt educated to are plan
--- NOTE | 2023-06-13 10:47 | MHC.CM.PN ---
PT REPORTS HE LIVES WITH A ROOMMATE AND IS INDEPENDENT WITH CARE PT DENIES USE OF DME OR HOME SERVICES PT DECLINES TO COMPLETE A HCP PCP: DRE MYLES DCP: HOME NO SERVICES VIA PRIVATE TRANSPORT
[2023-06-13 11:49] LABS: Troponin-I High Sensitivity 273.2 ng/L (<3.5-35.0)
--- NOTE | 2023-06-13 11:58 | PM.DS ---
DS: Providers Provider Date of Service: 06/13/23 Date of admission: 06/13/23 03:53 Primary care physician: ESSENCE Tinoco Consults: 06/13/23 03:58 Consult to Cardiology Routine Consulting Provider: [facility] Reason for consultation: NSTEMI Has provider been notified: Yes DS: Diagnosis Discharge Diagnosis (1) Non-ST elevation [place] (NSTEMI): Status: Acute (2) Hypertensive emergency: Status: Acute (3) Obstructive sleep apnea: Status: Acute (4) Morbid obesity: Status: Acute DS: Summary Hospital Course Hospital Course: Patient is a 42 year old obese (BMI 45.6) Czech speaking male with past medical history of uncontrolled hypertension (due to non-compliance with his antihypertensive medications) who presents to the emergency room from home complaining of a persistent left sided, chest pain that started 2 days ago while he was shovelling snow. He describes it as a chest tightness of moderate intensity (8/10) that radiates to the left shoulder and forearm. He reports associated dizziness and diaphoresis but denies any nausea, vomiting, cough, shortness of breath, fevers or chills. Initial work up done ion the emergency room was significant for elevated HSTnI at 37.9 ng/L (with a delta of 200.9 ng/L). His vital signs were notable for elevated BP at 209/122 mmHg. He has so far received Aspirin, Amlodipine, Losartan and Atorvastatin and admission was then requested for continued care. He is currently chest pain free. 42-year-old man admitted for acute NSTEMI, a troponins trending up, no complaints of chest pain, started on IV heparin drip, hypertensive urgency with systolic blood pressure greater than 200s. Patient reports that he has not taken blood pressure medication in months, apparently was diagnosed with sleep apnea but did not have follow-up and never received a CPAP machine. Echocardiogram done with results pending. Discussed with Cardiology, plan for transfer to tertiary care facility for cardiac catheterization. Started on aspirin, statin, should continue blood pressure medications. Time Attestation Discharge coordination time: Greater than 30 minutes Quality: Safe Use of Opioids Does Pt have an Active Cancer Diagnosis on the Problem List?: No Quality: Stroke Does the patient have a stroke diagnosis?: No Physical Exam Vital Signs: Vital Signs: Last Vital Signs Temp 98.2 F 06/12/23 20:41 Pulse 88 06/13/23 11:10 Resp 20 06/13/23 11:10 BP 128/76 06/13/23 11:10 Pulse Ox 95 06/13/23 11:10 O2 Del Method Room Air 06/13/23 11:10 BMI result Body Mass Index 45.6 Appearing in no acute distress head is normocephalic atraumatic eyes pupils are PERRLA sclera is anicteric mouth throat mucous membranes are intact and moist neck is supple no lymphadenopathy, no JVD noted lung sounds are clear to auscultation heart regular rate rhythm, clear S1, S2 positive bowel sounds, abdomen is soft, nontender neuro patient is alert x3, no focal deficits DS: Data Data Completed and Pending Labs on day of discharge: Laboratory Results - last 24 hr 06/12/23 06/13/23 06/13/23 20:57 01:09 05:11 WBC 8.3 7.9 RBC 4.91 5.08 Hgb 13.7 L 14.0 Hct 40.7 L 42.7 MCV 82.9 84.1 MCH 27.9 27.6 MCHC 33.7 32.8 RDW 13.0 13.2 Plt Count 171 D 204 MPV 11.1 11.9 Immature Gran % (Auto) 0.2 0.6 H Neut % (Auto) 67.5 50.1 Lymph % (Auto) 25.5 40.1 H [place] % (Auto) 5.6 6.3 Eos % (Auto) 1.0 2.4 Baso % (Auto) 0.2 0.5 Lymph # (Auto) 2.1 3.2 [place] # (Auto) 0.5 0.5 Eos # (Auto) 0.1 0.2 Baso # (Auto) 0.0 0.0 Abs Immat Gran (auto) 0.02 0.05 H Absolute Neuts (auto) 5.6 4.0 Absolute Nucleated RBC 0.000 0.000 Nucleated RBC % (auto) 0.0 0.0 PT 11.5 INR 0.9 APTT 33.5 aPTT Heparin Protocol Sodium 143 144 143 Potassium 3.1 L 3.5 3.2 L Chloride 105 108 107 Carbon Dioxide 26 25 22 Anion Gap 15 15 17 BUN 17 H 16 13 Creatinine 1.09 0.96 0.83 Estim Creat Clear Calc 118.0 133.9 154.9 Estimated GFR > 60 > 60 > 60 Random Glucose 162 H 122 H 120 H Calcium 9.9 9.3 D 9.3 Total Bilirubin 1.4 H AST 22 ALT 23 Alkaline Phosphatase 58 Troponin I High Sens 37.9 H D 200.9 H* D B-Natriuretic Peptide 124 H Total Protein 7.5 Albumin 4.3 06/13/23 06/13/23 09:24 11:09 WBC RBC Hgb Hct MCV MCH MCHC RDW Plt Count MPV Immature Gran % (Auto) Neut % (Auto) Lymph % (Auto) [place] % (Auto) Eos % (Auto) Baso % (Auto) Lymph # (Auto) [place] # (Auto) Eos # (Auto) Baso # (Auto) Abs Immat Gran (auto) Absolute Neuts (auto) Absolute Nucleated RBC Nucleated RBC % (auto) PT INR APTT aPTT Heparin Protocol 88.3 H Sodium Potassium Chloride Carbon Dioxide Anion Gap BUN Creatinine Estim Creat Clear Calc Estimated GFR Random Glucose Calcium Total Bilirubin AST ALT Alkaline Phosphatase Troponin I High Sens 273.2 H* B-Natriuretic Peptide Total Protein Albumin Discharge Plan Discharge Anticipated Discharge Date/Time: 06/13/23 11:51 Patient Disposition: Xfer Acute Care Hospital Discharge Diagnosis: NSTEMI Hypertensive urgency Referrals: Philomena Gongora FNP [Primary Care Provider] - 1 Week Discharge Medications: New aspirin 81 mg Tablet,Chewable 81 mg PO DAILY Qty: 30 0RF heparin(porcine) in 0.45% NaCl 25,000 unit/250 mL Parenteral Solution 25,000 unit continuous IV infusion .Q0M Qty: 6000 0RF atorvastatin 80 mg tablet 80 mg PO BEDTIME Qty: 30 0RF Continued lorazepam [Ativan] 0.5 mg tablet 0.5 mg PO DAILY PRN (Reason: anxiety) Qty: 6 0RF carvedilol 12.5 mg tablet 12.5 mg PO BID 90 Days Qty: 180 1RF Rx Instructions: must administer with a meal/food losartan 100 mg tablet 100 mg PO DAILY amlodipine 10 mg tablet 10 mg PO QAM Discharge Orders: Discharge Order (Routine); Ordered 06/13/23 Ordered By: Lori Scott Diet: Advance to usual diet Activity on Discharge: As tolerated Stand Alone Forms: Patient Portal Discharge page Care Plan Goals: Heparin IV drip, aspirin Needs follow-up sleep study Health Concerns: NSTEMI Hypertensive urgency Plan of Treatment: Transfer to tertiary care facility for cardiac catheterization Assessment: see discharge summary
--- NOTE | 2023-06-13 12:00 | PHA.MEDREC ---
Pharmacy Consult ? Medication Reconciliation Pharmacy has completed the medication reconciliation. patient reports that he was on 3 medications that he stopped taking about a month ago. He was unsure on the names of the medications, used claim history to verify.
--- NOTE | 2023-06-13 14:16 | P.CONCA_ITS ---
History of Present Illness History of Present Illness Date of Service: 06/13/23 Requesting physician: Lori Scott Consult reason: other (NSTEMI) Chief complaint: NSTEMI, Hypertensive Urgency Narrative: I was consulted to see Lele in cardiology consultation today for elevated troponins and chest pain. Patient is not very conversant and providing history. History was obtained from the chart. Patient presented after shoveling snow of having precordial chest discomfort which was intermittent in nature. Describes as a pressure in her chest. He was also noted to have markedly elevated blood pressure. He said he has been noncompliant with his medications and says that he did not get any refills. He did not provide any further clarification as to whether knows noncompliance with follow-up visits. Patient also has obstructive sleep apnea and does not use CPAP. He came in the hospital his initial troponin was 37.9 and subsequent troponin at 200.9. Third troponin done is 273.2. BNP was slightly elevated 124. EKG suggestive LVH with repolarization abnormality. Patient is currently chest pain-free. His blood pressure was treated aggressively and currently his blood pressures normalized to 128/76. Patient does not provide any other history. Review of Systems 2 Constitutional: Constitutional: Reports no additional constitutional complaints Eyes: Eyes: Reports no additional eye complaints Cardiovascular: Cardiovascular: Reports chest pain with activity, Denies leg edema, Denies lightheadedness, Denies Loss of Consciousness, Denies palpitations, Reports dyspnea on exertion and Denies orthopnea Respiratory: Respiratory: Reports no additional respiratory complaints and Reports dyspnea on exertion Gastrointestinal: Gastrointestinal: Reports no additional gastrointestinal complaints Genitourinary: Genitourinary: Reports no additional male genitourinary complaints Musculoskeletal: Musculoskeletal: Reports no additional musculoskeletal complaints Integumentary/Breasts: Skin/Breast: Reports system reviewed and no additional complaints, except as docu Neurologic: Reports system reviewed and no additional complaints, except as documented Endocrine: Endocrine: Reports no additional endocrine complaints and Denies palpitations PMFSH Past Medical History Medical History Morbid obesity Essential hypertension Obstructive sleep apnea Tobacco use disorder Family History Family History Mother HTN (hypertension) Father Kidney failure CVD (cardiovascular disease) HTN (hypertension) Social History Social History Patient Tobacco Use Status: Never used Tobacco Cigarettes Per Day: 10 Years Smoked: 17 +/- Smoked in Last 30 Days: Yes Use of substances other than those prescribed or required for medical reasons: Refusing to respond Advance Directives: No Advance Directives Information Provided: No Nutrition Risks: No Nutritional Risk service: No Current occupational status: employed Meds Allergies Allergy/AdvReac Type Severity Reaction Status Date / Time No Known Allergies Allergy Verified 06/12/23 20:37 Active Medications: Current Medications Acetaminophen (Acetaminophen 325 Mg Tablet) 650 mg PO Q6H PRN PRN Reason: Pain, Mild (Pain Scale 1-3) Al Hydroxide/Mg Hydroxide (Magnesium Hydrox/Alum Hydrox 30 Ml Oral.Susp) 30 ml PO Q4H PRN PRN Reason: Heartburn/Nausea Aspirin (Aspirin 81 Mg Tab.Chew) 81 mg PO DAILY [facility] Last Admin: 06/13/23 08:28 Dose: 81 mg Docusate Sodium (Docusate Sodium 100 Mg Capsule) 100 mg PO BID [facility] Last Admin: 06/13/23 08:30 Dose: Not Given Heparin Sodium (Porcine) (Heparin Sodium,Porcine 5,000 Unit/Ml Vial) 5,400 unit 40 unit/kg (5400 unit) IVPUSH PROTOCOL BOLUS PRN; Protocol PRN Reason: 40 unit/kg - Heparin Protocol Heparin Sodium (Porcine) (Heparin Sodium,Porcine 5,000 Unit/Ml Vial) 10,000 unit 40 unit/kg (5400 unit) IVPUSH PROTOCOL BOLUS PRN; Protocol PRN Reason: 80 unit/kg - Heparin Protocol Heparin Sodium/Sodium Chloride (Heparin Sodium,Porcine/1/2ns) 25,000 unit in 250 mls @ 0 mls/hr IVCONT .Q0M [facility]; Protocol Last Titration: 06/13/23 09:51 Dose: 12 units/kg/hr, 16.33 mls/hr Melatonin (Melatonin 3 Mg Tablet) 6 mg PO BEDTIME PRN PRN Reason: Insomnia Morphine Sulfate (Morphine Sulfate 4 Mg/Ml Cartridge) 2 mg IVPUSH Q6H PRN; Protocol PRN Reason: Pain, Severe (Pain Scale 7-10) Nitroglycerin (Nitroglycerin 0.4 Mg Tab.Subl) 0.4 mg SUBLINGUAL Q5MX3 PRN PRN Reason: Chest Pain Ondansetron HCl (Ondansetron Hcl 4 Mg/2 Ml Vial) 4 mg IVPUSH Q8H PRN PRN Reason: Nausea and Vomiting Senna (Sennosides 8.6 Mg Tablet) 17.2 mg PO BEDTIME PRN PRN Reason: Constipation Sodium Chloride (0.9 % Sodium Chloride Flush 3 Ml Syringe) 3 ml IVFLUSH QSHIFT JAUN Last Admin: 06/13/23 08:28 Dose: 3 ml Home Medications Medication Instructions Recorded Confirmed Last Taken Type hydroxyzine HCl 25 mg tablet 25 mg PO TID PRN anxiety 06/13/23 06/13/23 Unknown History sertraline 50 mg tablet 50 mg PO DAILY 06/13/23 06/13/23 Unknown History Physical Exam 2 Vital Signs: Vital Signs: Last Vital Signs Temp 98.2 F 06/12/23 20:41 Pulse 88 06/13/23 11:10 Resp 20 06/13/23 11:10 BP 128/76 06/13/23 11:10 Pulse Ox 95 06/13/23 11:10 O2 Del Method Room Air 06/13/23 11:10 BMI result Body Mass Index 45.6 Const: General: alert and other (Arousable) Nutritional Appearance: obese Orientation/consciousness: patient oriented x3 Limitations: no limitations HEENT: Head: Yes normocephalic and Yes atraumatic Neck: Neck: Yes trachea midline, Yes supple and Yes no JVD Resp: Effort & Inspection: normal respiratory effort Auscultation: clear to auscultation bilaterally Cardio: Jugular venous distension: no JVD Palpation: normal PMI Rate: r egular rate Rhythm: regular rhythm Heart sounds: S1 normal heart sound present, S2 normal heart sound present, no click, no gallops, no murmurs, no rubs and Other heart sounds present (S4 present) GI: Auscultation: normal bowel sounds Skin: General skin exam: no rashes or lesions noted Neuro: General: patient oriented x3 and no focal motor deficits Extrem: General: Yes no clubbing, cyanosis or edema Objective Labs and Meds 06/13/23 05:11 06/13/23 05:11 Lab results: Laboratory Results - last 24 hr 06/12/23 06/13/23 06/13/23 20:57 01:09 05:11 WBC 8.3 7.9 RBC 4.91 5.08 Hgb 13.7 L 14.0 Hct 40.7 L 42.7 MCV 82.9 84.1 MCH 27.9 27.6 MCHC 33.7 32.8 RDW 13.0 13.2 Plt Count 171 D 204 MPV 11.1 11.9 Immature Gran % (Auto) 0.2 0.6 H Neut % (Auto) 67.5 50.1 Lymph % (Auto) 25.[address] [place] % (Auto) 5.6 6.3 Eos % (Auto) 1.0 2.4 Baso % (Auto) 0.2 0.5 Lymph # (Auto) 2.[address] [place] # (Auto) 0.5 0.5 Eos # (Auto) 0.1 0.2 Baso # (Auto) 0.0 0.0 Abs Immat Gran (auto) 0.02 0.05 H Absolute Neuts (auto) 5.6 4.0 Absolute Nucleated RBC 0.000 0.000 Nucleated RBC % (auto) 0.0 0.0 PT 11.5 INR 0.9 APTT 33.5 aPTT Heparin Protocol Sodium 143 144 143 Potassium 3.1 L 3.5 3.2 L Chloride 105 108 107 Carbon Dioxide 26 25 22 Anion Gap 15 15 17 BUN 17 H 16 13 Creatinine 1.09 0.96 0.83 Estim Creat Clear Calc 118.0 133.9 154.9 Estimated GFR > 60 > 60 > 60 Random Glucose 162 H 122 H 120 H Calcium 9.9 9.3 D 9.3 Total Bilirubin 1.4 H AST 22 ALT 23 Alkaline Phosphatase 58 Troponin I High Sens 37.9 H D 200.9 H* D B-Natriuretic Peptide 124 H Total Protein 7.5 Albumin 4.3 06/13/23 06/13/23 09:24 11:09 WBC RBC Hgb Hct MCV MCH MCHC RDW Plt Count MPV Immature Gran % (Auto) Neut % (Auto) Lymph % (Auto) [place] % (Auto) Eos % (Auto) Baso % (Auto) Lymph # (Auto) [place] # (Auto) Eos # (Auto) Baso # (Auto) Abs Immat Gran (auto) Absolute Neuts (auto) Absolute Nucleated RBC Nucleated RBC % (auto) PT INR APTT aPTT Heparin Protocol 88.3 H Sodium Potassium Chloride Carbon Dioxide Anion Gap BUN Creatinine Estim Creat Clear Calc Estimated GFR Random Glucose Calcium Total Bilirubin AST ALT Alkaline Phosphatase Troponin I High Sens 273.2 H* B-Natriuretic Peptide Total Protein Albumin EKG shows normal sinus rhythm with LVH with repolarization abnormality. Echocardiogram shows normal LV ejection fraction with severe LVH with restrictive filling pattern Imaging Radiologist's impression: Impressions Chest X-Ray 06/12/23 21:10 IMPRESSION: 1. No acute cardiopulmonary process seen. 2. Widened superior mediastinum likely ectatic vessels. Assessment and Plan (1) Non-ST elevation [place] (NSTEMI): Status: Acute Patient present with symptoms and biomarker consistent with NSTEMI although is possible that he might have plaque rupture it is more likely that this is related to noncompliance with hypertensive urgency causing subendocardial ischemia. Although given his age further evaluation for coronary anatomy and plaque rupture needs to be pursued. Discussed with him the need for cardiac catheterization including the procedure details, benefits, risks and alternatives. He is agreeable. Have made arrangements for transfer to [facility]. Currently on IV heparin. Continue aspirin high-intensity statin therapy. Continue blood pressure control as prescribed. (2) Hypertensive heart disease: Status: Acute Patient with hypertensive heart disease with severe LVH and restrictive filling pattern. At high risk for development of congestive heart failure. Discussed with him in details that he needs to be compliant with his medication. Did not show much interest. I am not sure as to why he is noncompliant with his medications. Importance of compliance with medication was discussed in details. Continue current therapy as blood pressure is currently well optimized. Low- salt diet was discussed. High likelihood of cardiovascular mortality was discussed with him. Will follow up with him as outpatient Procedures Date of Service Date of Service: 06/13/23
[2023-06-13 16:03] LABS: PTT Heparin Drip 60.2 SEC (53-77.9)
--- NOTE | 2023-06-13 17:14 | PC.NURSE ---
Patient resting comfortably on stretcher. resp even and unlabored. skin warm dry intact. states that he is feeling much better than when he first arrived. heparin drip running at this time. see mar.
--- NOTE | 2023-06-13 17:47 | PC.NURSE ---
Nurse to nurse given to Shreya on M6 at [facility] [phone]. [facility] ambulance picked up patient at 1748/
== END 2023-06-13 19:38 | disposition short-term general hospital (02) | DRG 190 ==
LOC: HO.ED 06-13 02:16 → HO.EDOVER 06-13 04:18
PROVIDERS: Physician Assistant; Admitting Provider Internal Medicine; Emergency Provider Emergency Medicine; PCP Registered Nurse; Visit Provider Nurse Practitioner Acute Care
DX: I21.4 Non-ST elevation (NSTEMI) myocardial infarction (principal); I11.9 Hypertensive heart disease without heart failure; E66.01 Morbid (severe) obesity due to excess calories; G47.33 Obstructive sleep apnea (adult) (pediatric); I16.1 Hypertensive emergency; E87.6 Hypokalemia; Z71.3 Dietary counseling and surveillance; Z91.148 Patient's other noncompliance with medication regimen for other reason; Z68.41 Body mass index [BMI] 40.0-44.9, adult; Z79.899 Other long term (current) drug therapy
CPT/HCPCS: 36415; 71045; 80048; 80053; 83880; 84484; 85025; 85610; 85730; 93005; 93306; 99285; J1644; Q9957

== ENCOUNTER → 2023-06-12 20:38 | Outpatient (BNV) | payer MEDICAID, SELFPAY | PROVIDERS: Admitting Provider Internal Medicine; Emergency Provider Emergency Medicine; PCP Registered Nurse; Visit Provider Internal Medicine Cardiovascular Disease | DX: I44.4 Left anterior fascicular block (principal); R94.31 Abnormal electrocardiogram [ECG] [EKG] | CPT/HCPCS: 93010 ==

== ENCOUNTER → 2023-06-13 02:03 | Outpatient (BNV) | payer MEDICAID, SELFPAY | PROVIDERS: Admitting Provider Internal Medicine; Emergency Provider Emergency Medicine; PCP Registered Nurse; Visit Provider Internal Medicine Cardiovascular Disease | DX: I21.4 Non-ST elevation (NSTEMI) myocardial infarction (principal) | CPT/HCPCS: 93010; 93306 ==

== ENCOUNTER → 2023-06-13 03:53 | Outpatient (BNV) | payer MEDICAID, SELFPAY | PROVIDERS: Admitting Provider Internal Medicine; Emergency Provider Emergency Medicine; PCP Registered Nurse; Visit Provider Internal Medicine Cardiovascular Disease | DX: I21.4 Non-ST elevation (NSTEMI) myocardial infarction (principal); I11.9 Hypertensive heart disease without heart failure | CPT/HCPCS: 99222 ==

== ENCOUNTER → 2023-06-13 03:53 | Outpatient (BNV) | payer MEDICAID, SELFPAY | PROVIDERS: Admitting Provider Internal Medicine; Emergency Provider Emergency Medicine; PCP Registered Nurse; Visit Provider Internal Medicine | DX: I21.4 Non-ST elevation (NSTEMI) myocardial infarction (principal); I16.1 Hypertensive emergency; E66.01 Morbid (severe) obesity due to excess calories; Z68.42 Body mass index [BMI] 45.0-49.9, adult; G47.33 Obstructive sleep apnea (adult) (pediatric) | CPT/HCPCS: 99236; 99499 ==

== ENCOUNTER 2023-06-21 14:33 | Outpatient (AMB) | payer MEDICAID, SELFPAY ==
--- NOTE | 2023-06-21 14:37 | MHC.OFFVIS ---
Intake Intake Visit Reasons: [facility] [place] [place], [facility] [place] discharge/Cardiac cath follow up Allergies No Known Allergies Allergy (Verified 06/12/23 20:37) [facility] Medical History Morbid obesity Essential hypertension Obstructive sleep apnea Tobacco use disorder Family History Mother HTN (hypertension) Father Kidney failure CVD (cardiovascular disease) HTN (hypertension) Social History Patient Tobacco Use Status: Never used Tobacco Cigarettes Per Day: 10 Years Smoked: 17 +/- service: No Current occupational status: employed Review of Systems ENT Reports dizziness Card Denies chest pain, Denies chest pain at rest, Denies chest pain with activity, Denies rapid heart rate, Denies pedal edema, Denies edema, Denies leg edema, Denies lightheadedness, Denies palpitations, Denies dyspnea, Denies dyspnea on exertion and Denies orthopnea Resp Denies cough, Denies dyspnea and Denies dyspnea on exertion GI Denies hematochezia and Denies change in stool character Musc Denies abnormal gait, Reports limited range of motion, Reports muscle cramps, Denies muscle weakness, Denies numbness, Denies radiating pain into limb, Denies stiffness and Denies tingling Neuro Denies abnormal gait, Reports dizziness, Denies numbness and Denies tingling Endo Denies palpitations Coding
[2023-06-21 14:40] VITALS: BP 130/80; PULSE 67; BMI 44.0
[2023-06-21 15:16] VITALS: BMI 44.0
--- NOTE | 2023-06-21 15:16 | A.OFFVIS_ITS ---
Intake Vital Signs 06/21/23 14:40 06/21/23 15:16 Height 5 ft 9 in Weight 298 lb 1.039 oz BMI 44.0 44.0 BP 130/80 Blood Pressure Location Lt brachial Position Sitting Pulse 67 Pulse Source Pulse Oximeter Intake Visit Reasons: [facility] [place], [facility] [place]/Cardiac cath follow up Allergies No Known Allergies Allergy (Verified 06/12/23 20:37) Medication List - Last Reconciled 06/21/23 by Tata Tamayo NP-C amlodipine 10 mg PO DAILY aspirin 81 mg PO DAILY atorvastatin 80 mg PO BEDTIME carvedilol 25 mg PO BID heparin(porcine) in 0.45% NaCl 25,000 unit/250 mL 25,000 units (250 mL) continuous IV infusion .Q0M hydroxyzine HCl 25 mg PO TID PRN losartan 50 mg PO DAILY sertraline 50 mg PO DAILY spironolactone 25 [address] PO [address] [facility] [place], [facility] [place] discharge/Cardiac cath follow up HPI Details Thierry is a 42-year-old male with past medical history of hypertension, obstructive sleep apnea, smoking, morbid obesity who recently presented to [facility] with report of chest discomfort and found to have uncontrolled hypertension, NSTEMI. He was started on appropriate med management and then transferred to [facility] where he underwent cardiac catheterization showing no significant CAD. He had been off his blood pressure medications and they were restarted during his hospital admission. Today he reports that he is a very busy person and works full-time at a car [employer]. He has not been good at times at picking up refills on his medications. He says that he was taking some but not all of his meds prior to his admission to the hospital recently. He has been under a lot of stress and knows that he has sleep apnea that is not being treated. He does not sleep well during the night and is fatigued during the day. No chest discomfort since his hospital discharge. No shortness of breath, palpitations, presyncope, syncope, PND, orthopnea or edema. He is now taking his meds as directed. Expresses concern about his health and wants to improve things. [facility] Medical History Morbid obesity Essential hypertension Obstructive sleep apnea Tobacco use disorder Family History Mother HTN (hypertension) Father Kidney failure CVD (cardiovascular disease) HTN (hypertension) Social History Patient Tobacco Use Status: Never used Tobacco Cigarettes Per Day: 10 Years Smoked: 17 +/- service: No Current occupational status: employed Review of Systems Const Details: not sleeping well. Tired and stressed during the day. All systems reviewed & are unremarkable except as noted in HPI and below Card Denies chest pain, Denies dyspnea and Denies dyspnea on exertion Resp Denies dyspnea and Denies dyspnea on exertion Psych Reports abnormal sleep pattern Physical Exam Vital Signs: Last Vital Signs Pulse 67 06/21/23 14:40 BP 130/80 06/21/23 14:40 BMI result Body Mass Index 44.0 Const Other: morbidly obese General: cooperative, healthy appearing, comfortable and no acute distress Orientation/consciousness: patient oriented x3 Neck Neck: Yes normal visual inspection and Yes no JVD Resp Effort & Inspection: normal respiratory effort Auscultation: clear to auscultation bilaterally, no crackles, no rales, no rhonchi and no wheezes Cardio Jugular venous distension: no JVD Rate: regular rate Rhythm: regular rhythm Heart sounds: S1 normal heart sound present, S2 normal heart sound present, no murmurs and no rubs Skin General skin exam: no rashes or lesions noted Neuro General: patient oriented x3 Extrem General: Yes normal to inspection, No no pedal edema and No calf tenderness Psych Appearance: grossly normal Mental Status: mental status grossly normal Speech and movement: Normal speech and movement present Assessment & Plan Assessment & Plan (1) Non-ST elevation [place] (NSTEMI): Code(s): I21.4 - Non-ST elevation (NSTEMI) myocardial infarction Plan: Recently presented to [facility] with chest discomfort that had started the day prior after shoveling. His symptom was persistent and he then sought medical attention. His blood pressure initially 209/122. EKG initially did not show acute changes. Initial troponin was 37.9 then ketan to 200.9. His EKG then did show new T-wave inversions V4 through V6. Echocardiogram showed EF 60-65%, severe LVH with restrictive pattern, moderately dilated left atrium, normal valves, normal RV systolic pressure. He was treated for NSTEMI with heparin drip. His blood pressure was controlled and he was then transferred to [facility] where he underwent cardiac catheterization showing no significant coronary artery disease. He was restarted on all his usual antihypertensive agents including amlodipine, carvedilol, losartan and Aldac tone. He was also put on aspirin and atorvastatin. Today he reports he has not had recurrent chest discomfort since his hospital admission. Secondary NSTEMI related to uncontrolled hypertension reviewed with him. He states understanding. The importance of very good blood pressure control reviewed. Blood pressure good at present time. Will continue on current meds without change. Will send refills to his pharmacy with 90 day supplies to help improve compliance. Signs and symptoms of angina reviewed. Cardiology follow-up 3 months, sooner if needed (2) Essential hypertension: Code(s): I10 - Essential (primary) hypertension Plan: History of hypertension. EKG done last visit shows minimal voltage criteria for LVH. He had been on appropriate meds for blood pressure control however he does admit to noncompliance. 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 Hypertensive emergency as above with NSTEMI. He is now back on appropriate med management. Blood pressure is in the normal range. He does have known sleep apnea. Hopefully when this is treated he will have better controlled blood pressure readings overall. (3) Hypertensive emergency: Code(s): I16.1 - Hypertensive emergency Plan: As above (4) Hypertensive heart disease: Code(s): I11.9 - Hypertensive heart disease without heart failure Plan: Echo shows severe LVH. This finding was reviewed with patient using charts in the room. Most likely related to his uncontrolled hypertension. (5) Precordial chest pain: Code(s): R07.2 - Precordial pain Plan: Chest discomfort at time of secondary NSTEMI, hypertensive emergency. No recurrent chest discomfort since that time. (6) Obstructive sleep apnea: Code(s): G47.33 - Obstructive sleep apnea (adult) (pediatric) Plan: Sleep study had been ordered by his PCP. Results went to PCP once available. Patient states never got a call. Sleep study done 01/08/2023 showing severe obstructive sleep apnea, persistent nocturnal hypoxemia with average sat 88%. Test results reviewed with patient. Will arrange for urgent sleep study with CPAP titration. Will arrange for urgent referral with Sleep Medicine. (7) Morbid obesity: Code(s): E66.01 - Morbid (severe) obesity due to excess calories Plan: Benefit of weight loss reviewed with him. He states that once he has the CPAP and he is feeling better overall he may be able to lose weight. (8) Hospital discharge follow-up: Code(s): Z09 - Encounter for follow-up examination after completed treatment for conditions other than malignant neoplasm Plan: As above Plan Time spent on chart review, documentation, interview and assessment Orders: Orders RT PSG in-lab sleep titration Today G47.33 - Obstructive sleep apnea (adult) (pediatric) Referrals Sleep Medicine Referral G47.33 - Obstructive sleep apnea (adult) (pediatric) Medications: New amlodipine 10 mg PO DAILY 90 tabs 1RF carvedilol 25 mg PO BID 90 days 180 tabs 1RF losartan 50 mg PO DAILY 90 tabs 1RF spironolactone 25 mg PO DAILY 90 tabs 1RF Refilled atorvastatin 80 mg PO BEDTIME 90 tabs 1RF Coding Level of Care Code Est Pt Level 4 (69794) Diagnoses Non-ST elevation [place] (NSTEMI) I21.4 Essential hypertension I10 Hypertensive emergency I16.1 Hypertensive heart disease I11.9 Precordial chest pain R07.2 Obstructive sleep apnea G47.33 Morbid obesity E66.01 Hospital discharge follow-up Z09 Time Spent (min) 35
== END 2023-06-21 15:16 | disposition home or self-care (01) ==
PROVIDERS: PCP Registered Nurse; Visit Provider Nurse Practitioner Family
DX: I21.4 Non-ST elevation (NSTEMI) myocardial infarction (principal); I10 Essential (primary) hypertension; I16.1 Hypertensive emergency; I11.9 Hypertensive heart disease without heart failure; R07.2 Precordial pain; G47.33 Obstructive sleep apnea (adult) (pediatric); E66.01 Morbid (severe) obesity due to excess calories; Z09 Encounter for follow-up examination after completed treatment for conditions other than malignant neoplasm
CPT/HCPCS: 99214

== ENCOUNTER → 2023-06-21 14:33 | Outpatient (BNVA) | payer MEDICAID, SELFPAY | PROVIDERS: PCP Registered Nurse; Visit Provider Nurse Practitioner Family | DX: Z09 Encounter for follow-up examination after completed treatment for conditions other than malignant neoplasm (principal); I21.4 Non-ST elevation (NSTEMI) myocardial infarction; I11.9 Hypertensive heart disease without heart failure; I50.9 Heart failure, unspecified; I16.1 Hypertensive emergency; R07.2 Precordial pain; G47.33 Obstructive sleep apnea (adult) (pediatric); E66.01 Morbid (severe) obesity due to excess calories; Z68.41 Body mass index [BMI] 40.0-44.9, adult | CPT/HCPCS: 99212 ==

== ENCOUNTER → 2023-07-03 19:30 | Outpatient (REF) | payer MEDICAID, SELFPAY | LOC: HO.SL 19:30 | PROVIDERS: PCP Registered Nurse; Visit Provider Nurse Practitioner Family | DX: G47.33 Obstructive sleep apnea (adult) (pediatric) (principal) | CPT/HCPCS: 95811 ==

== ENCOUNTER → 2023-07-03 23:19 | Outpatient (BNV) | payer MEDICAID, SELFPAY | PROVIDERS: PCP Registered Nurse; Visit Provider Internal Medicine | DX: G47.33 Obstructive sleep apnea (adult) (pediatric) (principal); G47.31 Primary central sleep apnea | CPT/HCPCS: 95811 ==

== ENCOUNTER 2023-07-31 11:02 | Outpatient (AMB) | payer MEDICAID, SELFPAY ==
[2023-07-31 11:09] VITALS: BP 130/80; PULSE 86; O2SAT 97; BMI 44.9
--- NOTE | 2023-07-31 11:09 | A.OFFVIS_ITS ---
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 Seismology Technical Officer: Seismology Technical Officer offered & declined Accompanied by: Self / Same As Patient Allergies No Known Allergies Allergy (Verified 07/31/23 11:15) Medication List - Last Reconciled 07/31/23 by Raeann Fairchild LPN amlodipine 10 mg PO DAILY aspirin 81 mg PO DAILY atorvastatin 80 mg PO BEDTIME carvedilol 25 mg PO BID 90 days heparin(porcine) in 0.45% NaCl 25,000 unit/250 mL 25,000 units (250 mL) continuous IV infusion .Q0M hydroxyzine HCl 25 mg PO TID PRN losartan 50 mg PO DAILY sertraline 50 mg PO DAILY spironolactone 25 mg PO DAILY HPI Sleep apnea 2 HPI0 Details Thierry is pleasant 43-year-old male, current minimal smoker with 15+ pack year history , with underlying HTN and DEAN. He was referred by cardiology for DEAN. He was sent for a home sleep study which revealed severe obstructive sleep apnea, AHI 78, then had an in lab titration study, which recommended BiPAP use. Unfortunately, he did not initiate BiPAP therapy and presents today to discuss. He does report since significantly decreasing smoking he has gained about 50 lb over the last few months. He reports significant daytime fatigue, non restorative sleep, paroxsymal nocturnal dyspnea, witnessed apneas and loud snoring for many years. He reports multiple family members with sleep apnea. He currently denies any respiratory symptoms however has had intermittent episodes of wheezing in the past. [facility] Medical History Morbid obesity Essential hypertension Obstructive sleep apnea Tobacco use disorder Family History Mother HTN (hypertension) Father Kidney failure CVD (cardiovascular disease) HTN (hypertension) Social History (Updated 07/31/23 @ 11:18 by Raeann Fairchild LPN) Patient Tobacco Use Status: Former Tobacco user Tobacco use type: Cigarette Cigarette Packs Per Day: 1 Years Smoked: 17 +/- Smoked in Last 30 Days: Yes service: No Current occupational status: employed Review of Systems Const Denies chills, Denies excessive sweating, Denies fever(s), Denies headache(s) and Denies night sweats Eyes Denies dry eyes, Denies irritation and Denies itchy eyes ENT Reports Normal hearing present, Denies headache(s), Denies nasal congestion, Denies nasal discharge, Denies post nasal drip and Denies sore throat Card Denies chest pain, Denies chest pain at rest, Denies chest pain with activity, Denies claudication, Denies leg edema, Denies dyspnea, Denies dyspnea on exertion and Denies orthopnea Resp Denies chest congestion, Denies cough, Denies excessive phlegm production, Denies pain on inspiration, Denies pain with cough, Denies dyspnea, Denies dyspnea on exertion and Denies stridor Musc Denies myalgias Neuro Reports Normal hearing present and Denies headache(s) Endo Denies excessive sweating Dane/Lymph Denies lymphadenopathy Aller/Immun Denies itchy eyes and Denies seasonal rhinorrhea Physical Exam Vital Signs: Last Vital Signs Pulse 86 07/31/23 11:09 BP 130/80 07/31/23 11:09 Pulse Ox 97 07/31/23 11:09 Oxygen Delivery Method Room Air 07/31/23 11:09 BMI result Body Mass Index 44.9 Const General: cooperative, healthy appearing, comfortable, no acute distress, well developed and alert Nutritional Appearance: obese Orientation/consciousness: patient oriented x3 Limitations: no limitations HEENT Head: Yes normal to inspection, Yes normocephalic and Yes atraumatic Ears: hearing grossly normal bilaterally and external ears normal Eyes General: appearance normal, both eyes and all related structures Eyelids: Yes eyelids normal Sclerae: sclerae normal EOM: EOMs intact bilaterally Neck Neck: Yes normal visual inspection and Yes no lymphadenopathy Lymphatic: no lymphadenopathy noted Chest Chest palpation & inspection: normal inspection of the chest Resp Effort & Inspection: normal respiratory effort, able to speak in complete sentences, no audible wheezes, no cough, no stridor, not tachypneic, no tripod positioning and no use of accessory muscles Auscultation: clear to auscultation bilaterally Cardio Jugular venous distension: no JVD Rate: regular rate Rhythm: regular rhythm Skin Other: warm, dry General skin exam: no rashes or lesions noted Neuro General: patient oriented x3 Cranial nerves: Yes Normal hearing present Cognition (Neuro): normal cognition Gait exam (Neuro): Normal gait present Extrem General: Yes normal to inspection, Yes capillary refill normal, Yes no clubbing, cyanosis or edema and Yes no pedal edema Psych Appearance: grossly normal and well kempt Speech and movement: Normal speech and movement present and Clear speech present Affect: normal affect Attitude: cooperative Thought process: Normal thought process present Thought content: Normal thought content present Insight: Good insight present (Psych) Judgement: Good judgement present (Psych) Results Reviewed Results Reviewed: Assessment & Plan Assessment & Plan (1) Severe obstructive sleep apnea: Code(s): G47.33 - Obstructive sleep apnea (adult) (pediatric) Plan Reviewed sleep study results with patient which revealed an AHI of 78 . Since patient is quite symptomatic, will start BiPAP therapy. Will send in prescription for BiPAP and pressure settings of 23/12 cm with medium full face mask. Will monitor for compliance and benefits. Sleep hygiene education reviewed as well as importance of weight loss. He is aware if there are any issues with the mask or BiPAP machine, he will call the office. All questions were answered and patient is in agreement of plan. Will follow up in 8 weeks. Coding Level of Care Code New Pt Level 3 (04880) Diagnoses Severe obstructive sleep apnea G47.33
== END 2023-07-31 11:49 | disposition home or self-care (01) ==
PROVIDERS: PCP Registered Nurse; Referring Provider Nurse Practitioner Family; Visit Provider Nurse Practitioner Family
DX: G47.33 Obstructive sleep apnea (adult) (pediatric) (principal)
CPT/HCPCS: 99203

== ENCOUNTER → 2023-07-31 11:02 | Outpatient (BNVA) | payer MEDICAID, SELFPAY | PROVIDERS: PCP Registered Nurse; Referring Provider Nurse Practitioner Family; Visit Provider Nurse Practitioner Family | DX: G47.33 Obstructive sleep apnea (adult) (pediatric) (principal) | CPT/HCPCS: 99212 ==

== ENCOUNTER 2023-12-14 11:52 | Outpatient (REF) | payer MEDICAID, SELFPAY ==
[2023-12-14 13:10] LABS: MANUAL DIFF FLAG NO
[2023-12-14 13:15] LABS: Basophils Percent Auto 0.4 % (0-2); Eosinophils Absolute Auto 0.2 X10*3/uL (0.0-0.4); Eosinophils Percent Auto 2.1 % (0-4); Hematocrit 43.4 % (42.0-52.0); Hemoglobin 14.1 g/dl (14.0-18.0); Imm Gran Abs Auto 0.02 X10*3/uL (0.00-0.03); Imm Gran Pct Auto 0.2 % (0.0-0.4); Lymphocytes Absolute Auto 2.4 X10*3/uL (1.2-4.9); Lymphocytes Percent Auto 29.4 % (20-40); Mean Corpuscular HGB Conc 32.5 g/dl (31.0-36.0); Mean Corpuscular Hemoglobin 27.8 pg (27.0-33.0); Mean Corpuscular Volume 85.4 fL (80.0-98.0); Mean Platelet Volume 11.3 fL (9.4-12.4); Monocytes Absolute Auto 0.5 X10*3/uL (0.1-1.2); Monocytes Percent Auto 6.4 % (2-11); Neutrophils Percent Auto 61.5 % (45-73); Platelet Count 230 X10*3/uL (160-400); Red Blood Count 5.08 X10*6/uL (4.60-5.80); Red Cell Distribution Width 12.6 % (11.0-16.0); White Blood Count 8.1 X10*3/uL (4.8-10.8)
[2023-12-14 13:25] LABS: Estimated Average Glucose 131 mg/dL; Hemoglobin A1c % 6.2 % (<6.0)
[2023-12-14 13:53] LABS: Alanine Aminotransferase 17 U/L (0-40); Albumin Level 4.4 g/dL (3.5-5.0); Alkaline Phosphatase 53 U/L (39-117); Anion Gap 10 (12-20); Aspartate Amino Transferase 15 U/L (5-37); Bilirubin Total 1.1 mg/dL (0.0-1.0); Blood Urea Nitrogen 12 mg/dL (9-16); Calcium 9.7 mg/dL (8.4-10.2); Carbon Dioxide 28 mmol/L (22-29); Chloride 106 mmol/L (96-108); Cholesterol 196 mg/dL (<200); Estimated Glomerular Filt Rate > 60; Glucose Random 109 mg/dL (60-115); HDL Cholesterol 35 mg/dL (>40); LDL Cholesterol Calculated 133 mg/dL (<100); Potassium 4.1 mmol/L (3.3-5.1); Sodium 140 mmol/L (135-145); Total Protein 7.6 g/dL (6.5-8.0); Triglycerides 141 mg/dL (<150)
[2023-12-14 13:55] LABS: TSH reflex Free T4 2.48 uIU/mL (0.32-4.0)
== END 2023-12-14 11:53 | disposition home or self-care (01) ==
LOC: HO.HHCL 11:52
PROVIDERS: Visit Provider Nurse Practitioner
DX: R53.83 Other fatigue (principal); E66.01 Morbid (severe) obesity due to excess calories; Z68.42 Body mass index [BMI] 45.0-49.9, adult
CPT/HCPCS: 36415; 80053; 80061; 83036; 84443; 85025

== ENCOUNTER 2023-12-17 10:27 | Outpatient (REF) | payer MEDICAID, SELFPAY ==
[2023-12-17 12:11] LABS: Creatinine Urine 52.07 mg/dL; Microalbumin Urine < 5.0 mg/L
== END 2023-12-17 10:28 | disposition home or self-care (01) ==
LOC: HO.HHCLNP 10:27
PROVIDERS: Visit Provider Nurse Practitioner
DX: E66.01 Morbid (severe) obesity due to excess calories (principal)
CPT/HCPCS: 82043; 82570

== ENCOUNTER 2024-05-13 13:40 | Outpatient (AMB) | payer MEDICAID, SELFPAY ==
--- NOTE | 2024-05-13 13:47 | A.OFFVIS_ITS ---
Vital Signs 05/13/24 13:48 Height 5 ft 9 in Weight 317 lb 14.505 oz BMI 46.9 BP 140/70 H Blood Pressure Location Rt brachial Position Sitting Pulse 63 Pulse Source Monitor Intake Visit Reasons: overdue - [facility] ed fu-CP (rs from Jul) Automobile Radio Repairer Required: No Allergies No Known Allergies Allergy (Verified 05/13/24 13:50) Medication List - Last Reconciled 05/13/24 by ANIKA Chew amlodipine 10 mg PO DAILY aspirin 81 mg PO DAILY atorvastatin 80 mg PO BEDTIME carvedilol 25 mg PO BID 90 days losartan 50 mg PO DAILY metformin ER 500 mg PO QPM spironolactone 25 mg PO DAILY HPI HPI overdue - [facility] ed fu-CP (rs from Jul): Details: Thierry is a 43-year-old male with past medical history of hypertension, obstructive sleep apnea, prior smoking, morbid obesity who presented to [facility] 06/12/2023 with report of chest discomfort and found to have uncontrolled hypertension, NSTEMI. He was started on appropriate med management and then transferred to [facility] where he underwent cardiac catheterization showing no significant CAD. He had been off his blood pressure medications and they were restarted during his hospital admission. His last prior visit to our office was 06/21/2023. He was seen in the [facility] Emergency room last month with chest discomfort and ruled out for ACS. Today he reports that prior to going to the ER last month he recalls having a syncopal event at home. He states he was in bed then walked in the kitchen and the next thing he knew he was on the floor. He got very anxious and then developed the chest discomfort and went to the ER with that symptom. He has not had any presyncope, syncope, falls since that time. He has never had syncope in the past. He does describe an intermittent pressure discomfort in his left epigastric region. This occurs randomly without pattern. He will have shortness of breath if he over exerts which is not new. No shortness of breath with normal ADLs. No PND, orthopnea or edema. He is compliant with his CPAP but tells me he wakes up with it off. No heart palpitations, lightheadedness. 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 He has been noticing some lack of energy in the last 6 months. He does not do any exercise and he has gained weight, 19 lb since his last visit here. He tells me he drinks 5-6 cups of caffeinated coffee per day. He reports compliance with his medications. He tells me his PCP is trying to get weight loss injections approved for him. [facility] Medical History Morbid obesity Essential hypertension Obstructive sleep apnea Tobacco use disorder Family History Mother HTN (hypertension) Father Kidney failure CVD (cardiovascular disease) HTN (hypertension) Social History Patient Tobacco Use Status: Former Tobacco user Tobacco use type: Cigarette Cigarette Packs Per Day: 1 Years Smoked: 17 +/- service: No Current occupational status: employed Review of Systems Const Details: using CPAP each night but wakes without it All systems reviewed & are unremarkable except as noted in HPI and below Reports lethargy and Reports malaise ENT Denies dizziness Card Reports chest pain (pressure in left epigastric region that comes and goes), Denies chest pain at rest, Denies chest pain with activity, Denies rapid heart rate, Denies pedal edema, Denies edema, Denies leg edema, Denies lightheadedness, Denies palpitations, Reports dyspnea, Denies dyspnea on exertion and Denies orthopnea Resp Denies cough, Reports dyspnea and Denies dyspnea on exertion GI Denies hematochezia and Denies change in stool character Musc Denies abnormal gait, Denies limited range of motion, Denies muscle cramps, De nies muscle weakness, Denies numbness, Denies radiating pain into limb, Denies stiffness and Denies tingling Neuro Denies abnormal gait, Denies dizziness, Denies numbness and Denies tingling Endo Denies palpitations Physical Exam Vital Signs: Last Vital Signs Pulse 63 05/13/24 13:48 BP 140/70 H 05/13/24 13:48 BMI result Body Mass Index 46.9 Const Other: morbidly obese General: cooperative, healthy appearing, comfortable and no acute distress Orientation/consciousness: patient oriented x3 Neck Neck: Yes normal visual inspection and Yes no JVD Resp Effort & Inspection: normal respiratory effort Auscultation: clear to auscultation bilaterally, no crackles, no rales, no rhonchi and no wheezes Cardio Jugular venous distension: no JVD Rate: regular rate Rhythm: regular rhythm Heart sounds: S1 normal heart sound present, S2 normal heart sound present, no murmurs and no rubs Neuro General: patient oriented x3 Extrem General: Yes normal to inspection and No no pedal edema Psych Appearance: grossly normal Mental Status: mental status grossly normal Speech and movement: Normal speech and movement present Office Procedures EKG Details: Today read by me, normal sinus rhythm, left anterior fascicular block, T-wave abnormality lead 1 and aVL, rate 63, QTC 382 millisecond [id number], Complete Assessment & Plan Assessment & Plan (1) Non-ST elevation [place] (NSTEMI): Code(s): I21.4 - Non-ST elevation (NSTEMI) myocardial infarction Category: Medical Plan: [facility] admit 06/2023 with chest discomfort. He ruled in for NSTEMI. He had hypertensive emergency with blood pressure 209/122. His EKG then did show new T- wave inversions V4 through V6. Echocardiogram showed EF 60-65%, severe LVH with restrictive pattern, moderately dilated left atrium, normal valves, normal RV systolic pressure. He was managed medically and then transferred to [facility] where he underwent cardiac catheterization showing no significant coronary artery disease. Prior to admission he had not been taking any of his antihypertensive agents. His medications were restarted. He was seen here in follow-up 06/21/2023- and did not present again until today. He was seen in the [facility] emergency room last month with chest discomfort and ruled out for ACS. His blood pressure was mildly elevated. Today his blood pressure is 140/70 which he tells me is very good. He has no reports of anginal sounding symptoms. Previously informed that his secondary NSTEMI was likely related to uncontrolled hypertension. The importance of very good blood pressure control and ongoing med compliance reviewed. Continue aspirin, atorvastatin, amlodipine, carvedilol, Aldactone and losartan. Signs and symptoms of angina reviewed. (2) Essential hypertension: Code(s): I10 - Essential (primary) hypertension Category: Medical Plan: History of hypertension as above. Currently on 4 antihypertensive agents. His last echocardiogram had shown severe LVH. Since then he has been diagnosed with severe sleep apnea and is now using CPAP which he reports compliance. Will continue current med management. Will update echocardiogram to assess LVH, chamber sizes. For completeness will check a renal artery ultrasound to ensure there is no renal artery stenosis. Spent time discussing the benefits of weight loss. He says his PCP is trying to get weight loss injections approved for him. I did discuss referral to the bariatric program and he is not interested at this time. He is experiencing lack of energy and motivation. He has also reporting issues with anxiety. Will forward this note to his PCP as he is requesting treatment for this. Cardiology follow-up 4 months, sooner if needed. (3) Hypertensive heart disease: Code(s): I11.9 - Hypertensive heart disease without heart failure Category: Medical Plan: Echo shows severe LVH. This finding was again reviewed with patient using charts in the room. Most likely related to his uncontrolled hypertension. (4) Precordial chest pain: Code(s): R07.2 - Precordial pain Category: Medical Plan: He reports some atypical sounding epigastric discomfort. He has no significant coronary artery disease on catheterization. His discomfort is noncardiac. (5) Obstructive sleep apnea: Code(s): G47.33 - Obstructive sleep apnea (adult) (pediatric) Category: Medical Plan: Known obstructive sleep apnea, severe as seen on sleep study 01/2023. He follows with sleep medicine now. He is using CPAP each night. (6) Morbid obesity: Code(s): E66.01 - Morbid (severe) obesity due to excess calories Category: Medical Plan: As above Plan Time spent on chart review, documentation, interview and assessment Coding Level of Care Code Est Pt Level 4 (17663) Complex EM visit Add On G2211 Diagnoses Non-ST elevation [place] (NSTEMI) I21.4 Essential hypertension I10 Hypertensive heart disease I11.9 Precordial chest pain R07.2 Obstructive sleep apnea G47.33 Morbid obesity E66.01 CPT Codes EKG - CPT: [id number], Complete ([id number]) Time Spent (min) 34
[2024-05-13 13:48] VITALS: BP 140/70; PULSE 63; BMI 46.9
== END 2024-05-13 14:32 | disposition home or self-care (01) ==
PROVIDERS: PCP Registered Nurse; Visit Provider Nurse Practitioner Family
DX: I21.4 Non-ST elevation (NSTEMI) myocardial infarction (principal); I10 Essential (primary) hypertension; I11.9 Hypertensive heart disease without heart failure; R07.2 Precordial pain; G47.33 Obstructive sleep apnea (adult) (pediatric); E66.01 Morbid (severe) obesity due to excess calories
CPT/HCPCS: 93010; 99214

== ENCOUNTER → 2024-05-13 13:40 | Outpatient (BNVA) | payer MEDICAID, SELFPAY | PROVIDERS: PCP Registered Nurse; Visit Provider Nurse Practitioner Family | DX: I25.2 Old myocardial infarction (principal); I10 Essential (primary) hypertension; I11.9 Hypertensive heart disease without heart failure; R07.2 Precordial pain; G47.33 Obstructive sleep apnea (adult) (pediatric); E66.01 Morbid (severe) obesity due to excess calories; Z68.42 Body mass index [BMI] 45.0-49.9, adult | CPT/HCPCS: 93005; 99212 ==

== ENCOUNTER 2025-03-24 10:36 | Outpatient (REF) | payer MEDICAID, SELFPAY ==
--- OUTSIDE RECORDS SUMMARY | 2025-03-24 12:42 | XMS_ITS | Encounter Summary ---
Author Organization [employer] Address [address] [place] [address] Care Team Providers Care Junior Bookkeeper Name Role Phone Kenyatta Gottlieb NP Primary Care Provider [phone] Juju Hernandez EX CHEF Primary Care Provider [phone] Kenyatta Gottlieb EX CHEF Primary Care Provider [phone] Reason for Visit * Reason Onset Date Comments Durable Medical Equipment 12/19/2023 Encounter Details Date Type Department Care Team (Late st Contact Info) Description 12/19/2023 Telephone [facility] [address] [place] [address] Kenyatta Gottlieb NP [address] [place] [address] Durable Medical Equipment Social History Tobacco Use Types Packs/Day Years Used Date Smoking Tobacco: Former Cigarettes 0.3 1 Smokeless Tobacco: Never Comments:Quit for 3 years -2019 Multiple episodes of quitting and starting again. 1 year since smoking again Age 25 Alcohol Use Standard Drinks/Week Comments Yes 5 (1 standard drink = 0.6 oz pur e alcohol) Social, Kanwal Alcohol Answer Date Recorded How often do you have a drink containing alcohol ? 0 12/19/2023 How many drinks containing a lcohol do you have on a typical day when you are drinking? 0 12/19/2023 How often do you have six or more drinks on one occasion? 0 12/19/2023 Depression Answer Date Recorded Patient Health Questionnaire-9 Score 0 12/19/2023 Patient Health Questionnaire-9 Score 0 12/19/2023 Last PHQ-9: Questionnaire Data Not on file 0 12/19/2023 Housing Stability Answer Date Recorded What is your housing situation today? I have rossy melendez 03/26/[address] you li ve. Do you have problems with any of the following? None of the above 03/26/2023 Food Insecurity Answer Date Recorded Within the past 12 months, y ou worried that your food would run out before you got money to buy more: Never True 03/26/2023 Within the past 12 months,th e food you bought just didn't last and you didn't have enough money to get more: Never True Transportation Answer Date Recorded In the past 12 months, has l ack of transportation kept you from medical appts, meetings, work or from getting things needed for daily living? No 03/26/2023 Utilities Answer Date Recorded In the past 12 months, has t he electric, gas, oil or water company threatened to shut off services in your home? No 03/26/2023 Depression Answer Date Recorded Patient Health Questionnaire-2 Score 0 12/19/2023 Sex and Gender Information Value Date Recorded Sex Assigned at Male 04/03/2022 10:17 AM EDT Legal Sex Male 10:17 AM EDT Gender Identity Male 10/28/2022 11:14 AM EDT Sexual Orientation Choose not to disclose 2021 10:17 AM EDT documented as of this encounter Functional Status * Over the past 2 weeks, how often have you been bothered by any of the following problems? Question Answer Date of Assessment Author Patient Health Questionnaire -2 Score 0 12/19/2023 3:08 PM TOBIAST Gosia Dillon MA * Over the past 2 weeks, how often have you been bothered by any of the following problems? Question Answer Date of Assessment Author Little interest or pleasure in doing things Not at all 12/19/2023 3:08 PM Gosia Ruiz MA Feeling down, depressed, or hopeless Not at all 12/19/2023 3:08 PM Gosia Ruiz MA Trouble falling or staying asleep, or sleeping too much Not at all 12/19/2023 3:08 PM Gosia Ruiz MA Feeling tired or having ellen le energy Not at all 12/19/2023 3:08 PM EDT Gosia Dillon MA Poor appetite or overeating Not at all 12/19/2023 3: 08 PM TOBIAST Gosia Dillon MA Feeling bad about yourself - or that you are a failure or have let yourself or your family down Not at all 12/19/2023 3:08 PM TOBIAST Gosia Dillon MA Trouble concentrating on things, such as reading the newspaper or watching television Not at all 12/19/2023 3:08 PM EDT Gosia Dillon MA Moving or speaking so slowly that other people could have noticed? Or the opposite - being so fidgety or restless that you have been moving around a lot more than usual. Not at all 12/19/2023 3:08 PM Gosia Ruiz MA Thoughts that you would be better off or hurting yourself in some way Not at all 12/19/2023 3:08 PM Gosia Ruiz MA Patient Health Questionnaire -9 Score 0 12/19/2023 3:08 PM EDT Gosia Dillon MA documented as of this encounter Miscellaneous Notes * Telephone Encounter - Selma Hooker - 12/20/2023 8:56 AM EDT Please see message below. Thank you * Telephone Encounter - Silverio Scott - 12/19/2023 4:55 PM EDT Tc from pt calling in regards to blood pressure machine stating it was sent to [facility] and pt was advised by [facility] that they do not have those machines so pt is requesting for it to be sent to the [facility]. If any questions you can contact pt at [phone]. documented in this encounter Plan of Treatment Upcoming Encounters Date Type Department Care Team (Late st Contact Info) Description 05/18/2025 3:30 PM EST Office Visit [facility] [address] [place] [address] Kenyatta Gottlieb NP [address] [place] [address] documented as of this encounter Visit Diagnoses Not on filedocumented in this encounter Additional Health Concerns Assessment Noted Time PHQ-9 Depression Total Score: 0 12/19/19 3:08 PM EDT documented as of this encounter Care Teams Junior Bookkeeper Relationship Specialty Start Date End Date Kenyatta Gottlieb NP [address] [place] [address] PCP - General Family Medicine 03/13/23 02/28/24 Juju Hernandez NP [address] [place] [address] PCP - General Family Medicine 02/29/24 04/13/24 Kenyatta Gottlieb NP [address] [place] [address] PCP - General Family Medicine 04/14/24 documented as of this encounter
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
--- OUTSIDE RECORDS SUMMARY | 2025-03-24 12:42 | XMS_ITS | Encounter Summary ---
Author Organization [employer] Address [address] [place] [address] Care Team Providers Care Weatherstrip Machine Operator Name Role Phone Kenyatta Gottlieb NP Primary Care Provider [phone] Juju Hernandez FLOUR BLENDER Primary Care Provider [phone] Kenyatta Gottlieb FLOUR BLENDER Primary Care Provider [phone] Reason for Visit * Reason Onset Date Comments Medication Question 12/19/2023 Encounter Details Date Type Department Care Team ([facility] st Contact Info) Description 12/19/2023 Telephone [facility]INE [address] [place] [address] Kenyatta Gottlieb NP [address] [place] [address] Medication Question Social History Tobacco Use Types Packs/Day Years [...] things Not at all 12/19/2023 3:08 PM TOBIAST Gosia Dillon MA Feeling down, depressed, or hopeless Not at all 12/19/2023 3:08 PM Gosia Ruiz MA Trouble falling or staying asleep, or sleeping too much Not at all 12/19/2023 3:08 PM Gosia Ruiz MA Feeling tired or having ellen le energy Not at all 12/19/2023 3:08 PM Gosia Ruiz MA Poor appetite or overeating Not at all 12/19/2023 3: 08 PM Gosia Ruiz MA Feeling bad about yourself - or that you are a failure or have let yourself or your family down Not at all 12/19/2023 3:08 PM Gosia Ruiz MA Trouble concentrating on things, such as reading the newspaper or watching television Not at all 12/19/2023 3:08 PM Gosia Ruiz MA Moving or speaking so slowly that [...] Questionnaire -9 Score 0 12/19/2023 3:08 PM Gosia Ruiz MA documented as of this encounter Miscellaneous Notes * Telephone Encounter - Maria Luisa Gates RN - 12/20/2023 10:06 AM EDT Meds. Que for refill to PCP. Also called [facility] Met[facility] as per pt.'s request. * Telephone Encounter - Silverio Scott - 12/19/2023 4:49 PM EDT Tc from pt stated he was advised by pcp to call back regarding medication for pcp to verify and prescribe right medication. Medication in question: losartan (Cozaar) 50 MG tablet spironolactone (Aldactone) 25 MG tablet amLODIPine (Norvasc) 10 MG tablet carvedilol (Coreg) 25 MG tablet Pt is also requesting for all current medication to be sent to [facility] pharmacy from now on. If any questions you can contact pt at [phone]. documented in this encounter Plan of Treatment Upcoming Encounters Date Type Department Care Team (Late st Contact Info) Description 05/18/2025 3:30 PM EST Office Visit [facility] [address] [place] [address] Kenyatta Gottlieb NP [address] [place] [address] documented as of this encounter Visit Diagnoses Not on filedocumented in this encounter Additional Health Concerns Assessment Noted Time PHQ-9 Depression Total Score: 0 12/19/19 3:08 PM EDT documented as of this encounter Care Teams Weatherstrip Machine Operator Relationship Specialty Start Date End Date Kenyatta Gottlieb NP [address] [place] [address] PCP - General Family Medicine 03/13/23 02/28/24 Juju Hernandez NP [address] [place] [address] PCP - General Family Medicine 02/29/24 04/13/24 Kenyatta Gottlieb NP [address] [place] [address] PCP - General Family Medicine 04/14/24 documented as of this encounter
--- OUTSIDE RECORDS SUMMARY | 2025-03-24 12:42 | XMS_ITS | Encounter Summary ---
Author Organization [employer] Address [address] [place] [address] 7 [place] [address] Care Team Providers Care Group Rooms Coordinator Name Role Phone Mikayla Ellis Primary Care Provider Rola Kenyatta Coats NP Primary Care Provider [phone] Juju Hernandez ROUTE AGENT Primary Care Provider [phone] Kenyatta Gottlieb ROUTE AGENT Primary Care Provider [phone] Encounter Details Date Type Department Care Team (Late Contact Info) Description 06/26/2022 Telephone [facility] MEDICINE [address] [place] [address] Mikayla Ellis FNP Social History Tobacco Use Types Packs/Day Years Used Date Smoking Tobacco: Never Assessed Sex and Gender Information Value Date Recorded Sex Assigned at Male 04/03/2022 10:17 AM EDT Legal Sex Male 10:17 AM EDT Gender Identity Male 10/28/2022 11:14 AM EDT Sexual Orientation Choose not to disclose 2021 10:17 AM EDT documented as of this encounter Plan of Treatment Upcoming Encounters Date Type Department Care Team (Late Contact Info) Description 05/18/2025 3:30 PM EST Office Visit [facility] MEDICINE [address] [place] [address] Kenyatta Gottlieb NP [address] [place] [address] documented as of this encounter Visit Diagnoses Not on filedocumented in this encounter Care Teams Group Rooms Coordinator Relationship Specialty Start Date End Date Mikayla Ellis FNP PCP - General Family Medicine 01/30/22 03/12/23 Kenyatta Gottlieb NP [address] [place] [address] PCP - General Family Medicine 03/13/23 02/28/24 Juju Hernandez NP [address] [place] [address] PCP - General Family Medicine 02/29/24 04/13/24 Kenyatta Gottlieb NP [address] [place] [address] PCP - General Family Medicine 04/14/24 documented as of this encounter
--- OUTSIDE RECORDS SUMMARY | 2025-03-24 12:42 | XMS_ITS | Encounter Summary ---
Author Organization [employer] Address [address] 7[address] [place] [address] Care Team Providers Care Bench Lay Out Technician Name Role Phone Kenyatta Gottlieb DOT ETCHER Primary Care Provider [phone] Juju Hernandez DOT ETCHER Primary Care Provider [phone] Kenyatta Gottlieb DOT ETCHER Primary Care Provider [phone] Reason for Visit * Reason Onset Date Comments Nurse Triage 11/28/2023 Encounter Details Date Type Department Care Team ([facility] st Contact Info) Description 11/28/2023 Telephone [facility] MEDICINE [address] [place] [address] Kenyatta Gottlieb NP [address] [place] [address] Nurse Triage Social History Tobacco Use Types Packs/Day Years Used Date Smoking Tobacco: Former Cigarettes 0.3 1 Smokeless Tobacco: Never Comments:Quit for 3 years -2019 Multiple episodes of quitting and starting again. 1 year since smoking again Age 25 Alcohol Use Standard Drinks/Week Comments Yes 5 (1 standard drink = 0.6 oz pur e alcohol) Social, Kanwal Depression Answer Date Recorded Patient Health Questionnaire-9 Score 0 11/23/2022 Housing Stability Answer Date Recorded What is [...] Date Recorded Patient Health Questionnaire-2 Score 0 11/23/2022 Sex and Gender Information Value Date Recorded Sex Assigned at Male 04/03/2022 10:17 AM EDT Legal Sex Male 10:17 AM EDT Gender Identity Male 10/28/2022 11:14 AM EDT Sexual Orientation Choose not to disclose 2021 10:17 AM EDT documented as of this encounter Miscellaneous Notes * Telephone Encounter - Maria Luisa Gates RN - 11/29/2023 11:09 AM EDT T/C to pt. For below message, pt. States he did not go to ED, he feels his bleeding is less now andit was due to hemorrhoids. And he does has very minor bleeding. Pt. Wants to wait. Pt. Advised to come to walk in center for further evaluation. Pt. Also advised to go to nearest ED in case of any new or worsening symptoms. Pt. Is looking for follow up apt. Pt. Schedule for follow up apt. On 12/12/2023. Pt. Again advised to come to walk in center or go to nearest ED. Pt. Verbally agreed and understood. * Telephone Encounter - Madelyn Hand RN - 11/28/2023 11:08 AM EDT Call returned to Thierry Luis to triage below. Reports having a hemorrhoid since Sunday. Per pt usedOTC preparation H. Per pt yesterday bump popped. Per pt having continuous bleeding. Pt having to used tissue to keep covered but going onto underwear. Pt advised of disposition, agrees to [facility] for evaluation now. Reviewed home care advise, ER precautions and reasons to call back. Sent to team for ER status check PRN. Protocol Used: Rectal Bleeding (Adult) Protocol-Based Disposition: Go to ED Now Positive Triage Question: * Severe rectal bleeding (large blood clots; constant or on and off bleeding) * All higher-acuity triage questions were negative Care Advice Discussed: * Reasons To Call Back - Bleeding increases in amount - You become worse * Telephone Encounter - Shannon Enamorado - 11/28/2023 11:05 AM EDT Symptom: Rectal Bleeding Outcome: Talk to a nurse or provider within 15 minutes Reason: Large amount of blood The caller accepted this outcome documented in this encounter Plan of Treatment Upcoming Encounters Date Type Department Care Team (Late st Contact Info) Description 05/18/2025 3:30 PM EST Office Visit [facility] MEDICINE [address] [place] [address] Kenyatta Gottlieb NP [address] [place] [address] documented as of this encounter Visit Diagnoses Not on filedocumented in this encounter Additional Health Concerns Assessment Noted Time PHQ-9 Depression Total Score: 0 11/24/19 23 4:04 PM EDT documented as of this encounter Care Teams Bench Lay Out Technician Relationship Specialty Start Date End Date Kenyatta Gottlieb NP [address] [place] [address] PCP - General Family Medicine 03/13/23 02/28/24 Juju Hernandez NP [address] [place] [address] PCP - General Family Medicine 02/29/24 04/13/24 Kenyatta Gottlieb NP [address] [place] [address] PCP - General Family Medicine 04/14/24 documented as of this encounter
--- OUTSIDE RECORDS SUMMARY | 2025-03-24 12:42 | XMS_ITS | Encounter Summary ---
Author Organization [employer] Address [address] 7[address] [place] [address] Care Team Providers Care Manufacturing Plant Controller Name Role Phone Kenyatta Gottlieb NP Primary Care Provider [phone] Juju Hernandez FIRE INSPECTOR Primary Care Provider [phone] Kenyatta Gottlieb FIRE INSPECTOR Primary Care Provider [phone] Reason for Visit * Reason Onset Date Comments ER Follow-up 06/19/2023 Encounter Details Date Type Department Care Team ([facility] Contact Info) Description 06/19/2023 Telephone [facility] MEDICINE [address] [place] [address] Kenyatta Gottlieb NP [address] [place] [address] ER Follow-up Social History Tobacco Use Types Packs/Day Years Used Date Smoking Tobacco: Every Day Cigarettes 0.3 1 Smokeless Tobacco: Never Comments:Quit for 3 years -2018 Multiple episodes of quitting and starting again. [...] Encounter - Maria Luisa Gates RN - 06/22/2023 3:20 PM EST FYI T/C to pt. For to schedule HDF. Pt. Was Discharge on 06/15/2023 from [facility] for dignosis of NSTEMI andUncontrolled Hypertension. HDF schedule on 2023 with PCP. HDF summerisabel scanned into pt.'s chart. Pt. Advised to go to nearest ED in case of any new or worsening symptoms. * Telephone Encounter - Ella Maria - 06/19/2023 1:29 PM EST Patient calling to report ED visit on : Date: 06/13 Hospital: [facility] then transferred to [facility] Seen for: high blood pressure/mild heart attack Patient advised will forward to team nurse for follow up Please contact pt at [phone] documented in this encounter Plan of Treatment Upcoming Encounters Date Type Department Care Team (Late st Contact Info) Description 05/18/2025 3:30 PM EST Office Visit [facility] MEDICINE [address] [place] [address] Kenyatta Gottlieb NP [address] [place] [address] documented as of this encounter Visit Diagnoses Not on filedocumented in this encounter Additional Health Concerns Assessment Noted Time PHQ-9 Depression Total Score: 0 11/24/19 23 4:04 PM EDT documented as of this encounter Care Teams Manufacturing Plant Controller Relationship Specialty Start Date End Date Kenyatta Gottlieb NP [address] [place] [address] PCP - General Family Medicine 03/13/23 02/28/24 Juju Hernandez NP [address] [place] [address] PCP - General Family Medicine 02/29/24 04/13/24 Kenyatta Gottlieb NP [address] [place] [address] PCP - General Family Medicine 04/14/24 documented as of this encounter
--- OUTSIDE RECORDS SUMMARY | 2025-03-24 12:42 | XMS_ITS | Encounter Summary ---
Author Organization [employer] Address [address] [place] [address] 7 [place] [address] Care Team Providers Care Livestock Inspector Name Role Phone Mikayla EllisP Primary Care Provider Rola Kenyatta Coats PERSONAL FINANCIAL COUNSELOR Primary Care Provider [phone] Juju Hernandez PERSONAL FINANCIAL COUNSELOR Primary Care Provider [phone] Kenyatta Gottlieb PERSONAL FINANCIAL COUNSELOR Primary Care Provider [phone] Encounter Details Date Type Department Care Team (Late st Contact Info) Description 04/26/2022 Abstract [facility] MEDICINE [address] [place] [address] Provider, MD Andrew Social History Tobacco Use Types Packs/Day Years [...] Description 05/18/2025 3:30 PM EST Office Visit [facility] MEDICINE [address] [place] [address] Kenyatta Gottlieb NP [address] [place] [address] documented as of this encounter Visit Diagnoses Not on filedocumented in this encounter Care Teams Livestock Inspector Relationship Specialty Start Date End Date Mikayla Ellis FNP PCP - General Family Medicine 01/30/22 03/12/23 Kenyatta Gottlieb NP [address] [place] [address] PCP - General Family Medicine 03/13/23 02/28/24 Juju Hernandez NP [address] [place] [address] PCP - General Family Medicine 02/29/24 04/13/24 Kenyatta Gottlieb NP [address] [place] [address] PCP - General Family Medicine 04/14/24 documented as of this encounter
[2025-03-24 14:22] LABS: Anion Gap 12 (12-20); Blood Urea Nitrogen 10 mg/dL (9-16); Calcium 9.1 mg/dL (8.4-10.2); Carbon Dioxide 30 mmol/L (22-29); Chloride 103 mmol/L (96-108); Cholesterol 142 mg/dL (<200); Estimated Glomerular Filt Rate > 60; HDL Cholesterol 40 mg/dL (>40); Potassium 3.6 mmol/L (3.3-5.1); Sodium 141 mmol/L (135-145); Triglycerides 102 mg/dL (<150)
[2025-03-24 14:32] LABS: Microalbum/Creatinine Ratio Ur 10.7 ug/mg cr (<30)
== END 2025-03-24 10:37 | disposition home or self-care (01) ==
LOC: HO.HHCL 10:36
PROVIDERS: PCP Nurse Practitioner; Visit Provider Nurse Practitioner
DX: I10 Essential (primary) hypertension (principal); R73.03 Prediabetes
CPT/HCPCS: 36415; 80048; 80061; 82043; 82570; 83036

== ENCOUNTER 2025-04-01 16:07 | Outpatient (REF) | payer MEDICAID, SELFPAY ==
--- NOTE | ~2025-04-01 | XR_ITS ---
EXAMINATION: XR LUMBOSACRAL SPINE CLINICAL INFORMATION: acute atraumatic mid lower back pain COMPARISON: None available. TECHNIQUE: Three views of the lumbosacral spine. FINDINGS: There are 5 nonrib-bearing lumbar segments. T11-12 and T12-L1 demonstrate mild disc space narrowing, endplate sclerosis, and osteophytes. There is mild wedging of T12, likely physiologic chronic. There is subtle retrolisthesis involving L2-3 and L3-4. Small anterior osteophytes are present at L3-4 and anterior superior L5. L4-5 demonstrates mild disc space narrowing. XR/XR lumbar spine 2-3V IMPRESSION: Degenerative changes are more advanced in the lower thoracic spine than in the lumbar spine. Mild wedging of T12 vertebral body could be related to age-indeterminate compression fracture or physiologic in nature. Electronically signed by: Deepak Diaz MD 04/01/2025 04:34 PM EDT
--- OUTSIDE RECORDS SUMMARY | 2025-04-01 15:40 | XMS_ITS | Encounter Summary ---
Author Organization [employer] Address [address] [place] [address] 7t [place] [address] Care Team Providers Care Technology Instructor Name Role Phone Kenyatta Gottlieb NP Primary Care Provider [phone] Reason for Referral * Medications - Closed Specialty Diagnoses / Procedures Referred By Lennie t Referred To Contact Diagnoses Acute midline low back pain without sciatica Jeremy Weaver MD [address] [place] [address] Phone: tel: fax: Referral ID Status Reason Start Date Expiration Date Visits Re quested Visits Authorized [id number] Closed 1 1 Reason for Visit * Reason Comments Back Pain Encounter Details Date Type Department Care Team ([facility] st Contact Info) Description 04/01/2025 3:40 PM EDT Office Visit [facility] [address] [place] [address] Jeremy Weaver MD [address] [place] [address] Acute midline low back pain without sciatica (Primary Dx) Social History Tobacco Use Types Packs/Day Years [...] AM EDT documented as of this encounter Last Filed Vital Signs Vital Sign Reading Time Taken Comments Blood Pressure 163/81 04/01/2025 3:52 PM EDT Pulse 75 04/01/2025 3:38 PM EDT Temperature 36.9 C (98.4 F) 04/01/2025 3:38 PM EDT Respiratory Rate 20 04/01/2025 3:38 PM EDT Oxygen Saturation 99% 04/01/2025 3:38 PM EDT Inhaled Oxygen Concentration - - Weight 149 kg (329 lb) 04/01/2025 3:38 PM EDT Height - - Body Mass Index 48.58 03/06/2025 4:29 PM EDT documented in this encounter Progress Notes * Jeremy Weaver MD - 04/01/2025 3:40 PM EDT Subjective Patient ID: Thierry Luis is a 44 y.o. male. HPI Yesterday Thierry woke, stood up and stretched, felt a pop and onset of sharp, needle-like pain in middle of back, waxes and wanes, worse with movements of torso, bending, changing positions. Had difficulty finding comfortable position trying to sleep last night. Went to chiropractor today, was advised to see PCP to make sure it's nothing bad before makes an adjustment . Denies fever, chills, abd. pain, urinary sx, bowel or bladder dysfunction, saddle anesthesia, extremity weakness or numbness, or radiation of pain. Did not take his 4 BP meds today (it is now 4:00 PM) Doesn't check home BP. Lives with son. 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. Former smoker. Patient Active Problem List Diagnosis Date Noted Viral upper respiratory tract infection 12/15/2024 Conjunctivitis of left eye 12/15/2024 Syncope 04/23/2024 Coronary artery disease involving [place] heart 04/23/2024 Full coverage crown needed for tooth at risk for fracture 04/02/2024 Pre-diabetes 02/08/2024 Atypical chest pain 02/08/2024 Primary hypertension 02/08/2024 Class 3 severe obesity due to excess calories with serious comorbidity in adult ([facility]) 02/08/2024 Chest pain in adult 01/14/2024 Non-ST elevation VA (NSTEMI) ([facility]) ([facility]) 12/19/2023 Hypertensive heart disease 12/19/2023 Hypertensive emergency 12/19/2023 Retained dental root 10/30/2023 Severe dental caries 10/30/2023 Dental calculus 10/05/2023 Periodontal disease 09/14/2023 Heartburn 11/23/2022 Abnormal EKG 10/28/2022 Obstructive sleep apnea 10/28/2022 Precordial chest pain 10/28/2022 Health care maintenance 09/07/2022 Hypertension 03/30/2022 Class 3 severe obesity due to excess calories without serious comorbidity with body mass index (BMI) of 45.0 to 49.9 in adult ([facility]) 01/16/2017 Unconjugated hyperbilirubinemia 03/12/2015 Tension-type headache 03/12/2015 Impaired fasting blood sugar 03/12/2015 Mood disorder ([facility]) 03/01/2015 Mixed anxiety and depressive disorder 03/01/2015 Acanthamoeba keratitis 03/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 Respiratory: Negative for shortness of breath. Cardiovascular: Negative for chest pain. Gastrointestinal: Negative for abdominal pain. Musculoskeletal: Positive for back pain. Skin: Negative for rash. Neurological: Negative for headaches. Objective Physical Exam Cardiovascular: Pulses: Dorsalis pedis pulses are 2+ on the right side and 2+ on the left side. Neurological: Sensory: Sensation is intact. Motor: Motor function is intact. Comments: Normal dorsi and plantarflexion against resistance of bilateral feet and great toes. Procedures Assessment/Plan Diagnoses and all orders for this visit: Acute midline low back pain without sciatica History and exam not consistent with cauda equina syndrome. Due to the degree of patient's pain, we discussed going to the ED now but he declined. Advised ice or heat whichever feels best. Prescribed acetaminophen, ibuprofen, tizanidine, and lidocaine patches. Lumbar spine X-rays done in [facility] appear to show no acute finding when I reviewed images. Will call pt if radiologist reading differs. We dispensed a cane for comfort. Advised to call chiropractor again and go to the emergency room if current degree of pain persists. - lidocaine (Lidoderm) 5 % patch; Apply 1 patch topically Once per day. Remove & discard patch within 12 hours or as directed by MD. - XR Lumbar Spine 2-3 Views; Future Other orders - tiZANidine (Zanaflex) 2 MG tablet; Take 1 tablet (2 mg) by mouth every 6 (six) hours if needed for muscle spasms. - ibuprofen 400 MG tablet; Take 1 tablet (400 mg) by mouth every 6 (six) hours if needed for moderate pain or fever for up to 30 doses. - acetaminophen (Tylenol) 500 MG tablet; Take 2 tablets (1,000 mg) by mouth every 6 (six) hours if needed for moderate pain or fever for up to 25 doses. documented in this encounter Plan of Treatment Upcoming Encounters Date Type Department Care Team (Late st Contact Info) Description 05/18/2025 3:30 PM EST Office Visit [facility] MEDICINE [address] [place], [place] [phone] Kenyatta Gottlieb NP [address] [place] [address] documented as of this encounter Procedures Procedure Name Priority Date/Time Associated Diagnosis Comments XR LUMBAR SPINE 2-3 VIEWS Routine 04/01/2025 4:28 PM EDT Acute midline low back pain without sciatica documented in this encounter Results * XR Lumbar Spine 2-3 Views (04/01/2025 4:28 PM EDT) Anatomical Region Laterality Modality Spine, L-spine Radiographic Judith ging 04/01/2025 4:28 PM EDT Narrative 04/01/2025 4:37 PM EDT [address] [address] XRay Report Signed Patient: Thierry Luis MR#: [id number] : 1980 Acct:[id number] Age/Sex: 44 / M ADM Date: 04/01/25 [facility]: Jeremy Weaver MD Ordering Physician: JEREMY WEAVER MD Date of Service: 04/01/25 Procedure(s): XR lumbar spine 2-3V Accession Number(s): [id number] cc: JEREMY WEAVER MD Reason for Exam: acute atraumatic mid lower back pain EXAMINATION: XR LUMBOSACRAL SPINE CLINICAL INFORMATION: acute atraumatic mid lower back pain COMPARISON: None available. TECHNIQUE: Three views of the lumbosacral spine. FINDINGS: There are 5 nonrib-bearing lumbar segments. T11-12 and T12-L1 demonstrate mild disc space narrowing, endplate sclerosis, and osteophytes. There is mild wedging of T12, likely physiologic chronic. There is subtle retrolisthesis involving L2-3 and L3-4. Small anterior osteophytes are present at L3-4 and anterior superior L5. L4-5 demonstrates mild disc space narrowing. XR/XR lumbar spine 2-3V IMPRESSION: Degenerative changes are more advanced in the lower thoracic spine than in the lumbar spine. Mild wedging of T12 vertebral body could be related to age-indeterminate compression fracture or physiologic in nature. Electronically signed by: Deepak Diaz MD 04/01/2025 04:34 PM EDT RP Dictated By: Deepak Diaz MD Signed By: <Electronically signed by Deepak Diaz MD in OV> 04/01/25 1634 DD/ 1628 TD/TT: 04/01/25 1629 Porcelain Finish Sprayer: Procedure Note Donotuseinterpreter, Image - 04/01/[address] [address] XRay Report Signed Patient: Elaine Luis#: [id number] : 1980Acct:[id number] Age/Sex: 44 / MADM Date: 04/01/25 Loc: [facility] Attending Dr: Jeremy Weaver MD Ordering Physician: JEREMY WEAVER MD Date of Service: 04/01/25 Procedure(s): XR lumbar spine 2-3V Accession Number(s): [id number] cc: JEREMY WEAVER MD Reason for Exam: acute atraumatic mid lower back pain EXAMINATION: XR LUMBOSACRAL SPINE CLINICAL INFORMATION: acute atraumatic mid lower back pain COMPARISON: None available. TECHNIQUE: Three views of the lumbosacral spine. FINDINGS: There are 5 nonrib-bearing lumbar segments. T11-12 and T12-L1 demonstrate mild disc space narrowing, endplate sclerosis, and osteophytes. There is mild wedging of T12, likely physiologic chronic. There is subtle retrolisthesis involving L2-3 and L3-4. Small anterior osteophytes are present at L3-4 and anterior superior L5. L4-5 demonstrates mild disc space narrowing. XR/XR lumbar spine 2-3V IMPRESSION: Degenerative changes are more advanced in the lower thoracic spine than in the lumbar spine. Mild wedging of T12 vertebral body could be related to age-indeterminate compression fracture or physiologic in nature. Electronically signed by: Deepak Diaz MD 04/01/2025 04:34 PM EDT RP Dictated By: Deepak Diaz MD Signed By: <Electronically signed by Deepak Diaz MD in OV> 04/01/25 1634 DD/ 1628 TD/TT: 04/01/25 1629 Porcelain Finish Sprayer: Jeremy Weaver MD IMG XR PROCEDURES Final Result documented in this encounter Visit Diagnoses Diagnosis Acute midline low back pain without sciatica- Primary documented in this encounter Additional Health Concerns Assessment Noted Time PHQ-9 Depression Total Score: 0 12/19/19 3:08 PM EDT documented as of this encounter Care Teams Technology Instructor Relationship Specialty Start Date End Date Kenyatta Gottlieb NP [address] [place] [address] PCP - General Family Medicine 04/14/24 documented as of this encounter
--- OUTSIDE RECORDS SUMMARY | 2025-04-01 20:07 | XMS_ITS | Encounter Summary ---
Author Organization [employer] Address [address] [place] [address] Care Team Providers Care Eddy Current Inspector Name Role Phone AngKenyatta maldonado DUNIA Primary Care Provider [phone] Encounter Details Date Type Department Care Team (Latest Contact Info) Description 04/01/2025 Travel Social History Tobacco Use Types Packs/Day Years [...] Description 05/18/2025 3:30 PM EST Office Visit [facility] [address] [place] [address] Kenyatta Gottlieb NP [address] [place] [address] documented as of this encounter Visit Diagnoses Not on filedocumented in this encounter Additional Health Concerns Assessment Noted Time PHQ-9 Depression Total Score: 0 12/19/19 24 3:08 PM EDT documented as of this encounter Care Teams Eddy Current Inspector Relationship Specialty Start Date End Date Kenyatta Gottlieb NP [address] [place] [address] PCP - General Family Medicine 04/14/24 documented as of this encounter
--- OUTSIDE RECORDS SUMMARY | 2025-04-01 20:07 | XMS_ITS | Encounter Summary ---
Author Organization [employer] Address [address] [place] [address] Care Team Providers Care Statue Maker Name Role Phone Kenyatta Gottlieb NP Primary Care Provider [phone] Juju Hernandez UTILITY TECH Primary Care Provider [phone] Kenyatta Gottlieb UTILITY TECH Primary Care Provider [phone] Reason for Visit * Reason Onset Date Comments ER Follow-up 06/19/2023 Encounter Details Date Type Department Care Team ([facility] Contact Info) Description 06/19/2023 Telephone [facility] [address] [place] [address] Kenyatta Gottlieb NP [address] [place] [address] ER Follow-up Social History Tobacco Use Types [...] HDF. Pt. Was Discharge on 06/15/2023 from [facility] for dignosis of NSTEMI andUncontrolled Hypertension. HDF schedule on 2023 with PCP. HDF summerisabel scanned into pt.'s chart. Pt. Advised to go to nearest ED in case of any new or worsening symptoms. * Telephone Encounter - Ella Maria - 06/19/2023 1:29 PM EST Patient calling to report ED visit on : Date: 06/13 Hospital: [facility] then transferred to [facility] Seen for: high blood pressure/mild heart attack Patient advised will forward to team nurse for follow up Please contact pt at [phone] documented in this encounter Plan of Treatment Upcoming Encounters Date Type Department Care Team (Late st Contact Info) Description 05/18/2025 3:30 PM EST Office Visit [facility] [address] [place] [address] Kenyatta Gottlieb NP [address] [place] [address] documented as of this encounter Visit Diagnoses Not on filedocumented in this encounter Additional Health Concerns Assessment Noted Time PHQ-9 Depression Total Score: 0 11/24/19 23 4:04 PM EDT documented as of this encounter Care Teams Statue Maker Relationship Specialty Start Date End Date Kenyatta Gottlieb NP [address] [place] [address] PCP - General Family Medicine 03/13/23 02/28/24 Juju Hernandez NP [address] [place] [address] PCP - General Family Medicine 02/29/24 04/13/24 Kenyatta Gottlieb NP [address] [place] [address] PCP - General Family Medicine 04/14/24 documented as of this encounter
--- OUTSIDE RECORDS SUMMARY | 2025-04-01 20:07 | XMS_ITS | Encounter Summary ---
Author Organization [employer] Address [address] [place] [address] Care Team Providers Care Fig Caprifier Name Role Phone Kenyatta Gottlieb CHIEF RADIOLOGIC TECHNOLOGIST Primary Care Provider [phone] Juju Hernandez CHIEF RADIOLOGIC TECHNOLOGIST Primary Care Provider [phone] Kenyatta Gottlieb CHIEF RADIOLOGIC TECHNOLOGIST Primary Care Provider [phone] Reason for Visit * Reason Onset Date Comments Nurse Triage 11/28/2023 Encounter Details Date Type Department Care Team ([facility] st Contact Info) Description 11/28/2023 Telephone [facility] [address] [place] [address] Kenyatta Gottlieb NP [address] [place] [address] Nurse Triage Social History Tobacco Use Types [...] underwear. Pt advised of disposition, agrees to [facility] ER for evaluation now. Reviewed home care [...] 3:30 PM EST Office Visit [facility] [address] [place] [address] Kenyatta Gottlieb NP [address] [place] [address] documented as of this encounter Visit Diagnoses Not on filedocumented in this encounter Additional Health Concerns Assessment Noted Time PHQ-9 Depression Total Score: 0 11/24/19 23 4:04 PM EDT documented as of this encounter Care Teams Fig Caprifier Relationship Specialty Start Date End Date Kenyatta Gottlieb NP [address] [place] [address] PCP - General Family Medicine 03/13/23 02/28/24 Juju Hernandez NP [address] [place] [address] PCP - General Family Medicine 02/29/24 04/13/24 Kenyatta Gottlieb NP [address] [place] [address] PCP - General Family Medicine 04/14/24 documented as of this encounter
--- OUTSIDE RECORDS SUMMARY | 2025-04-01 20:07 | XMS_ITS | Clinical Summary ---
Author Organization [employer] Address [address] [place] [address] Care Team Providers Care Roasterman Name Role Phone Kenyatta Gottlieb NP Primary Care Provider [phone] Allergies No known active allergies Medications * This document contains information received from the source organization and may not represent a complete record from that organization. amLODIPine (Norvasc) 10 MG tabletIndicatio ns:Essential hypertension Take 1 tablet (10 mg) by mouth in the morning. 90 tablet 3 12/21/19 24 Active Blood Pressure kitIndications: Primary hypertension Apply 1 kit topically Once per [...] 25 Active hydrOXYzine HCl (Atarax) 25 MG tabletIndicatio ns:Anxiety Take 1 tablet (25 mg) by mouth if needed at bedtime for anxiety. May increase to 2 tabs nightly after 1 week as needed 60 tablet 03/06/20 25 025 Active spironolactone (Aldactone) 25 MG tablet TAKE 1 TABLET BY MOUTH EVERY DAY 90 tablet 1 03/09/20 25 Active Tirzepatide-Alphonso ght Management 2.5 MG/0.5ML solution auto-injectorIn dications:Class 3 severe obesity due to excess calories without serious comorbidity with body mass index (BMI) of 45.0 to 49.9 in adult (HCC) Inject 0.5 mL (2.5 mg) under the skin 1 (one) time per week for 28 days. 2 mL 03/30/20 25 Active metFORMIN (Glucophage) 850 MG tablet Take 1 tablet (850 mg) by mouth with breakfast. 90 tablet 1 03/30/20 25 026 Active tiZANidine (Zanaflex) 2 MG tablet Take 1 tablet (2 mg) by mouth every 6 (six) hours if needed for muscle spasms. 30 tablet 1 04/01/20 Active ibuprofen 400 MG tablet Take 1 tablet (400 mg) by mouth every 6 (six) hours if needed for moderate pain or fever for up to 30 doses. 15 tablet 04/01/20 25 Active acetaminophen (Tylenol) 500 MG tablet Take 2 tablets (1,000 mg) by mouth every 6 (six) hours if needed for moderate pain or fever for up to 25 doses. 50 tablet 04/01/20 25 Active lidocaine (Lidoderm) 5 % patchIndication s:Acute midline low back pain without sciatica Apply 1 patch topically Once per day. Remove & discard patch within 12 hours or as directed by MD. 30 patch 2 04/01/20 Active metFORMIN, OSM, (Fortamet) 500 MG 24 hr tabletIndicatio ns:Pre-diabetes Take 1 tablet (500 mg) by mouth with evening meal. Do not crush, chew, or split. 30 tablet 11 12/19/19 24 025 Discontinued(D ose adjustment) spironolactone (Aldactone) 25 MG tablet TAKE 1 TABLET BY MOUTH EVERY DAY 90 tablet 1 04/23/20 24 Discontinued Active Problems Problem Noted Date Diagnosed [...] PCP and cardiology. Coronary artery disease involving [place] heart 1 06/23/2023 Full coverage crown needed for tooth at risk for fracture 04/02/2024 Pre-diabetes 02/08/2024 Assessment & Plan (03/30/2025 8:52 AM EDT): -A1c 6.2 % one year ago; patient currently on metformin 500 mg every day. -repeat lab ordered -diet and lifestyle modifications reviewed -will consider increasing metformin dose pending lab result Orders: Hemoglobin A1c; Future Referral to Nutrition Therapy; Future Assessment & Plan (02/08/2024 5:30 PM EDT): [...] go to the ED to rule out WI. I Informed that although EKG today is [...] complete wellness check on Sunday Non-ST elevation WI (NSTEMI) ([facility]) Hypertensive heart disease 12/19/2023 Assessment & Plan (03/17/2024 10:41 PM EDT): -he is asymptomatic with current office BP readings -discussed the importance of obtaining BP control as he has already suffered an WI -strongly encouraged to take amlodipine, coreg, and [...] EKG 10/28/2022 Overview (11/23/2022): Pt went to [facility] ED on 10/16/22 Chest xray showed mildly [...] is still pending and will have our project administrative assistant recontact centralized scheduling regarding this. Assuming it [...] daily; losartan 100 mg Assessment & Plan (03/30/2025 8:52 AM EDT): -repeat BP within acceptable limits -medication compliance discussed -recommend maintaining low fat/low salt diet -discussed stress management and importance of self care on health outcomes -monitoring labs ordered Orders: Hemoglobin A1c; Future Albumin, Random Urine W/Creatinine; Future Basic Metabolic Panel; Future Lipid Panel, Standard; Future Assessment & Plan (11/23/2022 8:11 PM EDT): [...] 49.9 in adult 01/16/2017 Assessment & Plan (03/30/2025 8:52 AM EDT): -patient is agreeable to starting Zepbound to assist with weight management. Will start at low dose and titrate monthly pending patient tolerance -No contraindications identified: Hx of pancreatitis, hx of medullary thyroid cancer. No known retinopathy. -Discussed side effects with patient: side effects of GLP1: nausea, vomiting, diarrhea & risk of pancreatitis. -discussed mechanism of action with patient which include eating small portions and not eating through sensation of fullness. -Advised to keep medication refrigerated, but do not freeze -Recommended to decrease soda and sugary beverage consumption. -Recommended at least 20 g per meal of protein to assist with satiety. -Recommended at least 150 min/week of moderate intensity exercise. -plumbing engineering draftsperson referral placed Orders: Referral to Nutrition Therapy; Future Tirzepatide-Weight Management 2.5 MG/0.5ML solution auto-injector; Inject 0.5 mL (2.5 mg) under the skin 1 (one) time per week for 28 days. Assessment & Plan (03/17/2024 10:38 PM EDT): [...] Encounters Date Type Department Care Team Description 04/01/2025 3:40 PM EDT Office Visit [facility] [address] [place] [phone] Jeremy Weaver MD Acute midline low back pain without sciatica (Primary Dx) 04/01/2025 Travel 03/30/2025 Results Follow-Up [facility] [address] [place] [address] Kenyatta Gottlieb NP Hemoglobin A1c, Albumin, Random Urine W/Creatinine, Basic Metabolic Panel, Lipid Panel, Standard 03/08/2025 [facility] [address] [address] Nitza Braun MD 03/06/2025 4:00 PM EDT Office Visit [address] [address] Kenyatta Gottlieb NP Primary hypertension (Primary Dx); Pre-diabetes; Anxiety; Encounter for immunization; Class 3 severe obesity due to excess calories without serious comorbidity with body mass index (BMI) of 45.0 to 49.9 in adult (HCC); Sleep disturbance 03/06/2025 Travel 03/05/2025 Telephone [facility] [address] [place] [address] Kenyatta Gottlieb NP CHARTPREP 02/27/2025 Patient Outreach [facility] [address] [place] [address] Kenyatta Gottlieb NP Pre-visit Planning (SDOH unable to reach M ) 01/22/2025 Refill [facility] [address] [place] [address] Juju Hernandez NP 01/12/2025 Telephone [facility] [address] [place] [address] Kenyatta Gottlieb NP March recall from Last 3 Months Immunizations Immunization Administration [...] Given: Not Answered Comments:Quit for 3 years [id number] Multiple episodes of quitting and starting again. [...] your housing situation today? I have rossy sing 02/08/[address] you li [...] (329 lb) 04/01/2025 3:38 PM EDT Height 175.3 cm (5' 9 ) 03/06/2025 4:29 PM EDT Body Mass Index 48.58 03/06/2025 4:29 PM EDT Plan of Treatment Upcoming Encounters Date Type Department Care Team (Late st Contact Info) Description 05/18/2025 3:30 PM EST Office Visit [facility] [address] [place] [address] Kenyatta Gottlieb NP [address] [place] [address] Health Maintenance Due Date Last Done Comments [...] 03/19/2017 SDOH Screening 02/07/2025 02/08/2024 Tobacco Screening 04/01/2026 04/01/2025 Dental X-Ray: Full Mouth 08/23/2026 024, 01/03/2011 DTaP/Tdap/Td Vaccines (2 - T d or Tdap) 03/19/2027 03/19/2017 Zoster Vaccines (1 of 2) 2029 Lipid Panel 03/24/2030 03/24/2025, 12/14/2023, 09/07/2022 RSV Patients and Patients Aged 60 years [...] Acute midline low back pain without sciatica LIPID PANEL, STANDARD Routine 03/24/2025 11:00 AM EDT Primary hypertension BASIC METABOLIC PANEL Routine 03/24/2025 11:00 AM EDT Primary hypertension ALBUMIN, RANDOM URINE W/CREATININE Routine 03/24/2025 11:00 AM EDT Primary hypertension HEMOGLOBIN A1C Routine 03/24/2025 11:00 AM EDT Primary hypertension Pre-diabetes PROPHYLAXIS - ADULT Routine 09/14/2023 1 :00 [...] Recently Relevant to Health Maintenance Results * XR Lumbar Spine 2-3 Views (04/01/2025 4:28 PM EDT) Anatomical Region Laterality Modality Spine, L-spine Radiographic Judith ging 04/01/2025 4:28 PM EDT Narrative 04/01/2025 4:37 PM EDT [address] [address] XRay Report Signed Patient: Thierry Luis MR#: [id number] : 1980 Acct:[id number] Age/Sex: 44 / M ADM Date: 04/01/25 Loc: .HHCX Attending Dr: Jeremy Weaver MD Ordering Physician: JEREMY WEAVER MD Date of Service: 04/01/25 Procedure(s): XR lumbar spine 2-3V Accession Number(s): [id number] cc: JEREMY WEAVER MD Reason for Exam: [...] 04/01/25 1634 DD/ 1628 TD/TT: 04/01/25 1629 Routeman: Procedure Note Donotuseinterpreter, Image - 04/01/[address] [address] XRay Report Signed Patient: Thierry Luis#: [id number] : 1980Acct:[id number] Age/Sex: 44 / MADM Date: 04/01/25 Loc: HO.HHCX Attending Dr: Jeremy Weaver MD Ordering Physician: JEREMY WEAVER MD Date of Service: 04/01/25 Procedure(s): XR lumbar spine 2-3V Accession Number(s): [id number] cc: JEREMY WEAVER MD Reason for Exam: [...] 04/01/25 1634 DD/ 1628 TD/TT: 04/01/25 1629 Routeman: Jeremy Weaver MD IMG XR PROCEDURES Final Result * Albumin, Random Urine W/Creatinine (03/24/2025 11:00 AM EDT) Creatinine, Urine 195.21 mg/dL [facility] Microalbumin Urine 21.0 mg/L [facility] Microalbum Creatinine Ratio Ur 10.7 <30 ug/mg cr [facility] Comment:Albumin/Creatinine R atio Reference Ranges: Normal: < 30 ug/mg creatinine Microalbuminuria: 30 - 300 ug/mg creatinineClinical Albuminuria: > 300 ug/mg creatinine Urine (Urine, Random) 03/24/2025 11:00 AM EDT 03/24/2025 1:34 PM EDT Kenyatta Gottlieb NP LAB URINE ORDERABLES Final Resu lt [facility] [address] [place] [address] [phone] * (ABNORMAL) Hemoglobin A1c (03/24/2025 11:00 AM EDT) Hemoglobin A1c 6.7(H) <6.0 % [facility] Comment:Hemoglobin A1C Refer ence Range Adults: 4.8 - 6.0 % Non diabetic: < 6.0 % Goal: < 7.0 %Additional Action Suggested: > 8.0 %Note: Hemoglobin A1c results are invalid for patients with abnormal amounts of HbF. Blood transfusions may impact the HbA1c concentration in the patient sample. Estimated Average Glucose 146 mg/dL [facility] Comment:eAG = Estimated ave rage glucose which is %A1C expressed asaverage glucose, using the formula of the L1V-GpjqousLbgkpiy Glucose study (ADAG), Diabetes Care, Vol.31,#8,2007 Blood Venous blood specimen / Unknown 03/24/2025 11:00 AM EDT 03/24/2025 1:19 PM EDT us Kenyatta Gottlieb [employer] LAB BLOOD ORDERABLES Final Resu lt Performing Organization Address [facility] Co de Phone Number [facility] [address] [place] [phone] * (ABNORMAL) Lipid Panel, Standard (03/24/2025 11:00 AM EDT) Triglycerides 102 <150 mg/dL [facility] Comment:Desirable Triglyceri de: less than 150 mg/dLBorderline High Triglyceride 150-199 mg/dLHigh Triglyceride: 200-499 mg/dLVery High Triglyceride: greater than or equal to 5OO mg/dL Cholesterol 142 <200 mg/dL [facility] Comment:Desirable Cholestero l: less than 200 mg/dLBorderline High Cholesterol: 200-239 mg/dLHigh Cholesterol: greater than 239 mg/dL LDL Cholesterol Calculated 82 <100 mg/dL [facility] Comment:Desirable LDL: less than 100 mg/dLNear Optimal/Above Optimal LDL: 110- 129 mg/dLBorderline High LDL: 130-159 mg/dLHigh LDL: 160-189 mg/dLVery High LDL: greater than or equal to 190 mg/dL HDL Cholesterol 40(L) >40 mg/dL [facility] Comment:Desirable HDL: great er than 40 mg/dL Note: This HDL assay may give artificially low results in patients with liver disease. Blood Venous blood specimen / Unknown 03/24/2025 11:00 AM EDT 03/24/2025 1:28 PM EDT [facility] BLOOD ORDERABLES Final Resu lt Performing Organization Address [facility]/ZIP Co de Phone Number [facility] [address] [place] [phone] * (ABNORMAL) Basic Metabolic Panel (03/24/2025 11:00 AM EDT) Sodium 141 135 - 145 mmol/L [facility] Potassium 3.6 3.3 - 5.1 mmol/L [facility] Chloride 103 96 - 108 mmol/L [facility] Carbon Dioxide 30(H) 22 - 29 mmol/L [facility] Anion Gap 12 12 - 20 [facility] Urea Nitrogen (BUN) 10 9 - 16 mg/dL [facility] Creatinine, Serum 0.83 0.5 - 1.4 mg/dL [facility] Estimated Glomerular Filt Rate >60 [facility] Comment:Chronic Kidney Disea se: Estimated GFR < 60 mL/min/1.83v5Uuczya Kidney Disease: Estimated GFR < 15 mL/min/1.73m2 Glucose 129(H) 60 - 115 mg/dL [facility] Calcium 9.1 8.4 - 10.2 mg/dL [facility] Blood Venous blood specimen / Unknown 03/24/2025 11:00 AM EDT 03/24/2025 1:28 PM EDT [facility] Ang [employer] LAB BLOOD ORDERABLES Final Resu lt [facility] [address] [place] [address] [phone] * (ABNORMAL) Hepatitis Panel, General (09/07/2022 11:03 AM EDT) Hepatitis A Antibody Total REACTIVE( A) NON-REACT ARIEL [employer] Comment: For additional information, please refer to http://PresentationTube.VisionGate/faq/SXI142 (This link is being provided for informational/ educational purposes only.) Hepatitis B Surface Antibody QL NON-REACT ARIEL NON-REACT [facility] [place] [facility] Hepatitis B Surface Ag NON-REACT ARIEL NON-REACT ARIEL [employer] [place] [employer] Hepatitis B Core Antibody Total NON-REACT ARIEL NON-REACT [facility] [place] [facility] Hepatitis C Antibody NON-REACT ARIEL NON-REACT ARIEL [employer] Index 0.08 <1.00 [employer] Comment: HCV antibody was non-reactive. There is no laboratory evidence of HCV infection. In most cases, no further action is required. However, if recent HCV exposure is suspected, a test for HCV RNA (test code 40807) is suggested. For additional information please refer to http://PresentationTube.VisionGate/faq/DNZ94j6 (This link is being provided for informational/ educational purposes only.) 09/07/2022 11:0 3 AM EDT 09/07/2022 11:05 AM EDT Narrative [facility] - 09/07/2022 8:18 PM EDT FASTING:YES FASTING: YES Mikayla Ellis COMMUNITY SERVICE AIDE LAB BLOOD ORDERABLES Final Result [facility] [address], [place] [address] [employer] [email or web address] [address] [place] [phone] * HIV-1/2 Antigen and Antibodies, Fourth Generation, with Reflexes (09/07/2022 11:03 AM EDT) HIV Antigen/Antibody, 4th Generation NON-REAC TIVE NON-REAC TIVE [employer] [facility] Comment: HIV-1 antigen and HIV-1/HIV-2 antibodies were [...] purpose. For additional information please refer to http://education.VisionGate/faq/WWV059 (This link is being provided for informational/ educational purposes only.) The performance of this assay has not been clinically validated in patients less than 2 years old. 09/07/2022 11:0 3 AM EDT 09/07/2022 11:05 AM EDT Narrative [facility] - 09/07/2022 8:18 PM EDT FASTING:YES FASTING: YES Mikayla Ellis [facility] LAB BLOOD ORDERABLES Final Result [facility] [address] [place] [address] [employer] [address] [place] [address] from Last 3 Months or Most Recently Relevant to Health Maintenance Insurance [facility] [place] ADULT Care Teams Roasterman Relationship Specialty Start Date End Date Kenyatta Gottlieb NP [address] [place] [address] PCP - General Family Medicine 04/14/24
--- OUTSIDE RECORDS SUMMARY | 2025-04-01 20:07 | XMS_ITS | Encounter Summary ---
Author Organization [employer] Address [address] [place] [address] [address] [place] [address] Care Team Providers Care Card Seller Name Role Phone Mikayla EllisP Primary Care Provider Rola Kenyatta Coats CERTIFIED SCRUB TECH Primary Care Provider [phone] Juju Hernandez CERTIFIED SCRUB TECH Primary Care Provider [phone] Kenyatta Gottlieb CERTIFIED SCRUB TECH Primary Care Provider [phone] Encounter Details Date Type Department Care Team (Late st Contact Info) Description 04/26/2022 Abstract [facility] [address] [place] [phone] Provider, MD Andrew Social History Tobacco Use [...] Description 05/18/2025 3:30 PM EST Office Visit [facility] [address] [place] [phone] Kenyatta Gottlieb NP [address] [place] [address] documented as of this encounter Visit Diagnoses Not on filedocumented in this encounter Care Teams Card Seller Relationship Specialty Start Date End Date Mikayla Ellis FNP PCP - General Family Medicine 01/30/22 03/12/23 Kenyatta Gottlieb NP [address] [place] [address] PCP - General Family Medicine 03/13/23 02/28/24 Juju Hernandez NP [address] [place] [address] PCP - General Family Medicine 02/29/24 04/13/24 Kenyatta Gottlieb NP [address] [place] [address] PCP - General Family Medicine 04/14/24 documented as of this encounter
--- OUTSIDE RECORDS SUMMARY | 2025-04-01 20:07 | XMS_ITS | Encounter Summary ---
Author Organization [employer] Address [address] [place] [address] Care Team Providers Care Door Repairer Bus Name Role Phone Kenyatta Gottlieb NP Primary Care Provider [phone] Reason for Visit * Reason Onset Date Comments Prior Authorization 03/30/2025 Encounter Details Date Type Department Care Team ([facility] Contact Info) Description 03/30/2025 Results Follow-Up [facility] [address] [place] [address] Kenyatta Gottlieb NP [address] [place] [address] Hemoglobin A1c, Albumin, Random Urine W/Creatinine, Basic Metabolic Panel, Lipid Panel, Standard Social History Tobacco Use Types Packs/Day Years [...] * Telephone Encounter - Selma Hooker - 04/01/2025 11:57 AM EDT PA for Zepbound generated and sent to PCP for signature via [employer]. Once signed, will be faxed [facility] and sent to scan. If patient calls to check status on above, please advise them to contact Pharmacy . * Telephone Encounter - Selma Hooker - 04/01/2025 11:57 AM EDT ----- Message from Reema Dunn RN sent at 03/30/2025 2:40 PM EDT ----- ASPEN PA is needed for zepbound that was sent out today. Thank you! ----- Message ----- From: Kenyatta Gottlieb NP Sent: 03/30/2025 8:58 AM EDT To: [facility] Team Nurses Please inform patient of lab results which reveals A1c suggests progression from prediabetes to diabetes. I have increased dose of metformin with new prescription sent to pharmacy on file. Juan review dietary teaching with specific consideration for foods that will help increase HD levels. Thanks ----- Message ----- From: Interface, Lab Results In Sent: 03/24/2025 2:22 PM EDT To: Kenyatta Gottlieb NP * Telephone Encounter - Reema Dunn RN - 03/30/2025 2:25 PM EDT Tc to pt to let them know per PCP Please inform patient of lab results which reveals A1c suggestsprogression from prediabetes to diabetes. I have increased dose of metformin with new prescription sent to pharmacy on file. [place] review dietary teaching with specific consideration for foods that will help increase HD levels. Thanks . Pt advised that if they focus on lifestyle modifications and medications compliance can help to lower their A1c and increase their hdl levels. Discussed with pt the importance of exercising 30 minutes everyday and avoid smoking, drinking alcohol, fried processedfoods, sugary drinks and white carbohydrate such as white bread and rice. Pt reports they do eat candy and advised them to limit their intake. Pt advised to increase intake of fruits, vegetables, fatty fish such as salmon, tuna, oats, avocados and whole grain rice. Pt verbalized understanding and agrees with plan. Tc to our pharmacy who reports the zepbound that was sent out today needs a PA. Message sent to PA specialist. * Telephone Encounter - Reema Dunn RN - 03/30/2025 2:25 PM EDT ----- Message from Kenyatta Gottlieb sent at 03/30/2025 8:58 AM EDT ----- Please inform patient of lab results which reveals A1c suggests progression from prediabetes to diabetes. I have increased dose of metformin with new prescription sent to pharmacy on file. Juan review dietary teaching with specific consideration for foods that will help increase HD levels. Thanks ----- Message ----- From: Interface, Lab Results In Sent: 03/24/2025 2:22 PM EDT To: Kenyatta Gottlieb NP documented in this encounter Plan of Treatment Upcoming Encounters Date Type Department Care Team (Late st Contact Info) Description 05/18/2025 3:30 PM EST Office Visit [facility] [address] [place] [address] Kenyatta Gottlieb NP [address] [place] [address] documented as of this encounter Visit Diagnoses Not on filedocumented in this encounter Additional Health Concerns Assessment Noted Time PHQ-9 Depression Total Score: 0 12/19/19 3:08 PM EDT documented as of this encounter Care Teams Door Repairer Bus Relationship Specialty Start Date End Date Kenyatta Gottlieb NP [address] [place] [address] PCP - General Family Medicine 04/14/24 documented as of this encounter
--- OUTSIDE RECORDS SUMMARY | 2025-04-01 20:07 | XMS_ITS | Encounter Summary ---
Author Organization [employer] Address [address] [place] [address] [address] [place] [address] Care Team Providers Care Finnish Rubber Name Role Phone Mikayla Ellis Primary Care Provider Rola Kenyatta Coats NP Primary Care Provider [phone] Juju Hernandez ASSISTANT SUPERINTENDENT FOR CURRICULUM Primary Care Provider [phone] Kenyatta Gottlieb ASSISTANT SUPERINTENDENT FOR CURRICULUM Primary Care Provider [phone] Encounter Details Date Type Department Care Team (Late Contact Info) Description 06/26/2022 Telephone [facility] [address] [place] [phone] Mikayla Ellis FNP Social History Tobacco Use [...] Description 05/18/2025 3:30 PM EST Office Visit [facility] [address] [place] [phone] Kenyatta Gottlieb NP [address] [place] [address] documented as of this encounter Visit Diagnoses Not on filedocumented in this encounter Care Teams Finnish Rubber Relationship Specialty Start Date End Date Mikayla Ellis FNP PCP - General Family Medicine 01/30/22 03/12/23 Kenyatta Gottlieb NP [address] [place] [address] PCP - General Family Medicine 03/13/23 02/28/24 Juju Hernandez NP [address] [place] [address] PCP - General Family Medicine 02/29/24 04/13/24 Kenyatta Gottlieb NP [address] [place] [address] PCP - General Family Medicine 04/14/24 documented as of this encounter
--- OUTSIDE RECORDS SUMMARY | 2025-04-01 20:07 | XMS_ITS | Encounter Summary ---
Author Organization [employer] Address [address] [place] [address] Care Team Providers Care Baker Helper Name Role Phone Kenyatta Gottlieb NP Primary Care Provider [phone] Juju Hernandez APPLICATIONS COORDINATOR Primary Care Provider [phone] Kenyatta Gottlieb APPLICATIONS COORDINATOR Primary Care Provider [phone] Reason for Visit * Reason Onset Date Comments Medication Question 12/19/2023 Encounter Details Date Type Department Care Team ([facility] st Contact Info) Description 12/19/2023 Telephone [facility] [address] [place] [address] Kenyatta Gottlieb NP [address] [place] [address] Medication Question Social History Tobacco Use Types [...] -9 Score 0 12/19/2023 3:08 PM Gosia Ruzi MA documented as of this encounter Miscellaneous Notes * Telephone Encounter - Maria Luisa Gates RN - 12/20/2023 10:06 AM EDT Meds. Que for refill to PCP. Also called [facility] pharmacy to [facility] Met[facility] as per pt.'s request. * [...] all current medication to be sent to [facility] pharmacy from now on. If any questions you can contact pt at [phone]. documented in this encounter Plan of Treatment Upcoming Encounters Date Type Department Care Team (Late st Contact Info) Description 05/18/2025 3:30 PM EST Office Visit [facility] [address] [place] [address] Kenyatta Gottlieb NP [address] [place] [address] documented as of this encounter Visit Diagnoses Not on filedocumented in this encounter Additional Health Concerns Assessment Noted Time PHQ-9 Depression Total Score: 0 12/19/19 3:08 PM EDT documented as of this encounter Care Teams Baker Helper Relationship Specialty Start Date End Date Kenyatta Gottlieb NP [address] [place] [address] PCP - General Family Medicine 03/13/23 02/28/24 Juju Hernandez NP [address] [place] [address] PCP - General Family Medicine 02/29/24 04/13/24 Kenyatta Gottlieb NP [address] [place] [address] PCP - General Family Medicine 04/14/24 documented as of this encounter
--- OUTSIDE RECORDS SUMMARY | 2025-04-01 20:07 | XMS_ITS | Encounter Summary ---
Author Organization [employer] Address [address] [place] [address] Care Team Providers Care Communications Department Head Name Role Phone Kenyatta Gottlieb NP Primary Care Provider [phone] Juju Hernandez MECHANICAL REPAIR WORKER Primary Care Provider [phone] Kenyatta Gottlieb MECHANICAL REPAIR WORKER Primary Care Provider [phone] Reason for Visit * Reason Onset Date Comments Durable Medical Equipment 12/19/2023 Encounter Details Date Type Department Care Team (Late st Contact Info) Description 12/19/2023 Telephone [facility] [address] [place] [address] Kenyatta Gottlieb NP [address] [place] [address] Durable Medical Equipment Social History Tobacco Use [...] pressure machine stating it was sent to [facility] and pt was advised by [facility] that they do not have those machines so pt is requesting for it to be sent to the [facility]. If any questions you can contact pt at [phone]. documented in this encounter Plan of Treatment Upcoming Encounters Date Type Department Care Team (Late st Contact Info) Description 05/18/2025 3:30 PM EST Office Visit [facility] [address] [place] [address] Kenyatta Gottlieb NP [address] [place] [address] documented as of this encounter Visit Diagnoses Not on filedocumented in this encounter Additional Health Concerns Assessment Noted Time PHQ-9 Depression Total Score: 0 12/19/19 3:08 PM EDT documented as of this encounter Care Teams Communications Department Head Relationship Specialty Start Date End Date Kenyatta Gottlieb NP [address] [place] [address] PCP - General Family Medicine 03/13/23 02/28/24 Juju Hernandez NP [address] [place] [address] PCP - General Family Medicine 02/29/24 04/13/24 Kenyatta Gottlieb NP [address] [place] [address] PCP - General Family Medicine 04/14/24 documented as of this encounter
== END 2025-04-01 16:08 | disposition home or self-care (01) ==
LOC: HO.HHCX 16:07
PROVIDERS: Visit Provider Emergency Medicine
DX: M54.50 Low back pain, unspecified (principal)
CPT/HCPCS: 72100

== ENCOUNTER → 2025-04-01 16:07 | Outpatient (BNV) | payer MEDICAID, SELFPAY | PROVIDERS: Visit Provider Radiology Diagnostic Radiology | DX: M51.34 Other intervertebral disc degeneration, thoracic region (principal); M51.360 Other intervertebral disc degeneration, lumbar region with discogenic back pain only | CPT/HCPCS: 72100 ==